=== PATIENT | male | born 1945 | race Caucasian/White ===

== ENCOUNTER 2016-07-16 07:10 | Day surgery (SDC) | payer MEDICARE ==
[2016-07-14 09:15] VITALS: BMI 28.8
[~2016-07-16 07:10] MED LIST: LACTATED RINGERS 1,000 ML IV SCH; LIDOCAINE 1% 20 ML VIAL (10MG/ML) FOR IV START INTRADERMA PRN
[2016-07-16 07:28] VITALS: RESP 16
[2016-07-16 07:49] VITALS: TEMP 97.6
[2016-07-16 07:51] LABS: Glucose,Whole Blood 119 mg/dL (75-99)
[2016-07-16] MEDS ORDERED: PROPOFOL 10 MG/ML 20 ML VIAL IV ONE (08:24)
[2016-07-16 09:11] VITALS: BP 107/72; PULSE 70
--- NOTE | 2016-07-16 14:42 | P.PCN ---
Date of Procedure: 07/16/16 Procedure(s) Performed: Procedure: Esophagogastroduodenoscopy and biopsy. Preoperative diagnosis: Dysphagia. Postoperative diagnosis: 1. Normal esophagus without any evidence of Zenker's diverticulum, hiatal hernia, esophagitis or complicated reflux disease. 2. Mild antral gastritis and minimal duodenitis. Preparation and sedation: Was provided by anesthesia. Brief clinical history: The patient is a 71-year-old male with history of non- Hodgkin's lymphoma who was initially referred last year for diarrhea which he had since 2012. He had a normal colonoscopy in 2013, and he responded to a course of Xifaxan. The patient was having issues with cough and dysphagia for which he was seen last month. He reported cough and throat closing up especially over the prior 3 weeks of his visit. I scheduled this evaluation to assess for esophagitis or complicated reflux disease or other pathology. Procedure: With the patient on his left lateral decubitus position and after informed consent and adequate sedation, I passed the Olympus GIF-140 60 video upper endoscope through the cricopharyngeus down the esophagus. Particular to attention was made for possible Zenker's diverticulum and I was not able to find any evidence of that. The esophagus did not have any erosions, ulcers, strictures or Bates's esophagus. There was no hiatal hernia then the endoscope was passed into the stomach which was insufflated with air and inspected in detail including the retroflex view in the cardia. There was minimal mottling and erythema in the antrum but no ulcers or erosions. Pyloric channel, duodenal bulb, post bulbar area and descending duodenum appeared within normal limits. Because of his symptoms, I obtained multiple biopsies from the duodenum, antrum and esophagus then the endoscope was withdrawn. The patient tolerated the procedure well. Plan: The patient was reassured. Will await biopsy results. Consideration can be given for further evaluation of his swallowing using motility and barium studies, depending on his course and especially if there is nutritional compromise. He will follow up with you as planned and I'll keep you updated on his progress.
== END 2016-07-16 09:48 | disposition home or self-care (01) ==
LOC: ORWHC2ENDO 07:10
DX: K29.50 Unspecified chronic gastritis without bleeding (principal); K20.9 Esophagitis, unspecified; E11.9 Type 2 diabetes mellitus without complications; G47.33 Obstructive sleep apnea (adult) (pediatric); I11.0 Hypertensive heart disease with heart failure; I50.9 Heart failure, unspecified; I25.10 Atherosclerotic heart disease of native coronary artery without angina pectoris; Z95.5 Presence of coronary angioplasty implant and graft; E78.5 Hyperlipidemia, unspecified; I25.2 Old myocardial infarction; Z79.84 Long term (current) use of oral hypoglycemic drugs; Z79.02 Long term (current) use of antithrombotics/antiplatelets; Z79.899 Other long term (current) drug therapy
CPT/HCPCS: 88305; 88342; 43239; J2704

== ENCOUNTER 2016-08-18 10:43 | Day surgery (SDC) | payer MEDICARE ==
[2016-08-14 11:27] VITALS: BMI 28.8
[~2016-08-18 10:43] MED LIST changes: +ALPRAZolam 0.25 MG TAB PO PRN; +ALPRAZolam 0.5 MG TAB PO PRN; +ASPIRIN 325 MG TAB PO STA; +ATORVASTATIN 80 MG TAB PO STA; -LACTATED RINGERS 1,000 ML IV SCH; -LIDOCAINE 1% 20 ML VIAL (10MG/ML) FOR IV START INTRADERMA PRN; +NITROGLYCERIN SL TABS 0.4 MG TAB SUBLINGUAL PRN; +SODIUM CHLORIDE 0.9% 1,000 ML in EMPTY BAG 1 BAG IV ONE
[2016-08-18] MEDS ORDERED: ONDANSETRON 4 MG/2 ML VIAL IVP ONE (11:02)
[2016-08-18 11:14] VITALS: PULSE 86; TEMP 98
[2016-08-18 11:31] LABS: Basophils % (A) 0 %; CH 29.3; CHCM 33.4; Eosinophils # (A) 0.2 k/uL (0-0.7); Eosinophils % (A) 4 %; HCT 37.1 % (39.0-53.0); HDW 2.94; HGB 12.6 gm/dL (13.0-17.5); Luc # (Auto) 0.21; Luc % (Auto) 4; Lymphocytes # (A) 1.4 k/uL (1.0-4.8); Lymphocytes % (A) 25 %; MCH 29.9 pg (25.0-35.0); MCV 87.8 fL (80.0-100.0); Monocytes # (A) 0.4 k/uL (0-1.0); Monocytes % (A) 8 %; Neutrophils # (A) 3.4 k/uL (1.3-7.7); Neutrophils % (A) 59 %; RBC 4.23 m/uL (4.30-5.90); RDW 15.3 % (11.5-15.5); WBC 5.7 k/uL (3.8-10.6); WBC (Perox) 5.88
[2016-08-18 11:37] LABS: Glucose,Whole Blood 135 mg/dL (75-99)
[2016-08-18 11:44] LABS: Anion Gap 5 mmol/L; Blood Urea Nitrogen 17 mg/dL (9-20); Carbon Dioxide 25 mmol/L (22-30); Chloride 108 mmol/L (98-107); Glucose 131 mg/dL (74-99); Non-African American GFR(MDRD) >60 (>60 ml/min/1.73 sqM); Potassium 4.4 mmol/L (3.5-5.1); Sodium 138 mmol/L (137-145)
[2016-08-18] MEDS ORDERED: LIDOCAINE 2% INJ 20 MG/ML (20 ML MDV) ONE (12:02)
[2016-08-18] MEDS ORDERED: fentaNYL (PF) 50 MCG/ML 2 ML AMP ONE (12:12)
[2016-08-18] MEDS ORDERED: MIDAZOLAM 2 MG/2 ML VIAL ONE (12:12)
[2016-08-18] MEDS ORDERED: fentaNYL (PF) 50 MCG/ML 2 ML AMP IV ONE (12:40)
[2016-08-18] MEDS ORDERED: MIDAZOLAM 2 MG/2 ML VIAL IV ONE (12:40)
[2016-08-18] MEDS ORDERED: LIDOCAINE 2% INJ 20 MG/ML SQ ONE (12:46)
[2016-08-18] MEDS ORDERED: IOHEXOL 350 MG/ML 125ML BOTTLE INJ ONE (13:20)
[2016-08-18 14:09] LABS: Glucose,Whole Blood 101 mg/dL (75-99)
[2016-08-18] MEDS ORDERED: RX INFO: IV CONTRAST WAS GIVEN 1 EACH MISC MISCELLANE PRN (15:15)
[2016-08-18 16:27] VITALS: RESP 18
[2016-08-18 18:26] VITALS: BP 145/74
--- NOTE | 2016-08-19 08:48 | CC ---
DATE OF SERVICE: A 71-year-old gentleman who is status post complex angioplasty with multiple stents in the LAD as well as atherectomy of the circumflex coronary artery. The patient has been having recently exertional chest pain suggestive of angina of new onset. The patient was recommended to have a cardiac catheterization to rule out any significant restenosis. PROCEDURE: The right groin was prepped and draped in the usual manner and the skin was infiltrated with 2% Xylocaine. The right femoral artery was entered using Seldinger technique. A #6 Samoan sheath was placed in. Selective coronary angiography was then performed in multiple projections. Multiple attempts were made to engage the right coronary artery selective, it was unsuccessful. Right coronary artery is small and dominant and chronically occluded. SELECTIVE CORONARY ANGIOGRAPHY: Left main coronary artery is normal and patent. LAD is a good caliber blood vessel and proximally there is about 50% stenosis, mid LAD has in-stent tight stenosis of about 80% to 90%. The patient's LAD is severely calcified. Circumflex coronary artery is patent at the site of the prior stent placement. Right coronary artery is known to be chronically occluded. RECOMMENDATIONS: Films were reviewed with Dr. Swanson and we will schedule him for a re-stent to the mid LAD as well as possible proximal LAD.
== END 2016-08-18 18:10 | disposition home or self-care (01) ==
LOC: CATHCVL 10:43
PROVIDERS: ATTEND Internal Medicine Cardiovascular Disease
DX: I25.119 Atherosclerotic heart disease of native coronary artery with unspecified angina pectoris (principal); T82.855A Stenosis of coronary artery stent, initial encounter; E78.2 Mixed hyperlipidemia; I25.2 Old myocardial infarction; E11.9 Type 2 diabetes mellitus without complications; Z82.49 Family history of ischemic heart disease and other diseases of the circulatory system; Z79.84 Long term (current) use of oral hypoglycemic drugs; Z79.02 Long term (current) use of antithrombotics/antiplatelets; Z79.82 Long term (current) use of aspirin; Z79.899 Other long term (current) drug therapy
CPT/HCPCS: 93454; 80048; 85025; C1760; C1894; C1769; J2001; J2250; J2405; J3010; Q9967

== ENCOUNTER 2016-08-21 07:52 | Day surgery (SDC) | payer MEDICARE ==
[2016-08-19 17:24] VITALS: BMI 28.8
[~2016-08-21 07:52] MED LIST changes: -ALPRAZolam 0.5 MG TAB PO PRN; +ASPIRIN 325 MG TAB PO ONE; -ASPIRIN 325 MG TAB PO STA; -ATORVASTATIN 80 MG TAB PO STA
[2016-08-21 08:16] VITALS: RESP 16; TEMP 97.7
[2016-08-21 08:27] LABS: Glucose,Whole Blood 137 mg/dL (75-99)
[2016-08-21 08:46] LABS: Mean Platelet Volume 7.2
[2016-08-21] MEDS ORDERED: SODIUM CHLORIDE 0.9% 1,000 ML IV ONE (10:06)
[2016-08-21] MEDS ORDERED: FUROSEMIDE 10 MG/ML 4 ML VIAL IV ONE (10:20)
[2016-08-21] MEDS ORDERED: LIDOCAINE 2% INJ 20 MG/ML SQ ONE (10:22)
[2016-08-21] MEDS ORDERED: MIDAZOLAM 2 MG/2 ML VIAL IVP ONE (10:22)
[2016-08-21] MEDS ORDERED: ENALAPRILAT 1.25 MG/ML 1 ML VIAL IVP ONE (10:27)
[2016-08-21] MEDS ORDERED: VERAPAMIL SYRINGE (5 MG/10 ML) INTRAARTER ONE (10:27)
[2016-08-21] MEDS ORDERED: hydrALAZINE HCL 20 MG/ML 1 ML VIAL IVP ONE (10:28)
[2016-08-21] MEDS ORDERED: BIVALIRUDIN BOLUS 250 MG/50 ML IV ONE (10:42)
[2016-08-21] MEDS ORDERED: BIVALIRUDIN 250 MG in SODIUM CHLORIDE 0.9% 50 ML IV ONE (10:42)
[2016-08-21] MEDS ORDERED: IOHEXOL 350 MG/ML 125ML BOTTLE INJ ONE (11:12)
[2016-08-21] MEDS ORDERED: RX INFO: IV CONTRAST WAS GIVEN 1 EACH MISC MISCELLANE PRN (11:26)
[2016-08-21] MEDS ORDERED: SODIUM CHLORIDE 0.9% 1,000 ML IV SCH (11:30)
[2016-08-21 12:52] LABS: Appearance,Urine Clear (Clear); Bilirubin,Urine Negative (Negative); Glucose,Urine (UA) Negative (Negative); Ketones,Urine Negative (Negative); Leukocyte Esterase,Urine Negative (Negative); Nitrite,Urine Negative (Negative); Protein,Urine Negative (Negative); Specific Gravity,Urine 1.008 (1.001-1.035); UA Billing (MACRO vs. MICRO) CHEM; Urobilinogen,Urine <2.0 mg/dL (<2.0)
--- NOTE | 2016-08-21 15:24 | XR ---
EXAMINATION TYPE: XR chest 2V DATE OF EXAM: 08/21/2016 2:20 PM COMPARISON: Chest x-ray November 28, 2015 HISTORY: Preop cardiac surgery. TECHNIQUE: Frontal and lateral views of the chest are obtained. FINDINGS: There is no focal air space opacity, pleural effusion, or pneumothorax seen. The cardiac silhouette size is within normal limits. The osseous structures are intact. IMPRESSION: No acute process. No significant change from prior.
--- NOTE | 2016-08-21 15:45 | US ---
EXAMINATION TYPE: US carotid duplex BILAT DATE OF EXAM: 08/21/2016 2:36 PM COMPARISON: NONE CLINICAL HISTORY: PreOp Cardiac Surgery. EXAM MEASUREMENTS: RIGHT: Peak Systolic Velocity (PSV) cm/sec ----- Right CCA: 72.6 ----- Right ICA: 82.7 ----- Right ECA: 100.0 ICA/CCA ratio: 1.2 RIGHT: End Diastole cm/sec ----- Right CCA: 12.9 ----- Right ICA: 30.4 ----- Right ECA: 0.0 LEFT: Peak Systolic Velocity (PSV) cm/sec ----- Left CCA: 86.4 ----- Left ICA: 128.1 ----- Left ECA: 107.9 ICA/CCA ratio: 1.5 LEFT: End Diastole cm/sec ----- Left CCA: 20.2 ----- Left ICA: 27.9 ----- Left ECA: 0.0 VERTEBRALS (direction of flow): Right Vertebral: Antegrade Left Vertebral: Antegrade No significant velocity elevations Grayscale images show moderate to severe eccentric shadowing plaque at right carotid bulb. Similar se isidro plaque is noted at left carotid bulb. Increased peak systolic velocity left internal carotid art evan is seen. End-diastolic velocity remains within normal limits. No increased velocity in right inte rnal carotid artery is present. IMPRESSION: Severe atherosclerotic change bilaterally without hemodynamically significant stenosis clearly seen in either internal carotid artery.
[2016-08-21 16:28] LABS: Basophils # (A) 0.1 k/uL (0-0.2); Basophils % (A) 1 %; CH 28.8; CHCM 31.8; Eosinophils # (A) 0.2 k/uL (0-0.7); Eosinophils % (A) 3 %; HCT 38.6 % (39.0-53.0); HDW 2.63; HGB 12.1 gm/dL (13.0-17.5); Luc # (Auto) 0.17; Luc % (Auto) 3; Lymphocytes # (A) 1.4 k/uL (1.0-4.8); Lymphocytes % (A) 23 %; MCH 28.5 pg (25.0-35.0); MCHC 31.4 g/dL (31.0-37.0); MCV 90.8 fL (80.0-100.0); Mean Platelet Volume 7.2; Monocytes # (A) 0.4 k/uL (0-1.0); Monocytes % (A) 6 %; Neutrophils # (A) 3.9 k/uL (1.3-7.7); Neutrophils % (A) 65 %; RBC 4.25 m/uL (4.30-5.90); RDW 15.3 % (11.5-15.5); WBC (Perox) 6.32
[2016-08-21 16:40] LABS: Partial Thromboplastin Time 31.8 sec (22.0-30.0); Prothrombin Time 10.6 sec (9.0-12.0)
[2016-08-21 16:54] LABS: ALT 33 U/L (21-72); AST 40 U/L (17-59); Alkaline Phosphatase 85 U/L (38-126); Anion Gap 7 mmol/L; Blood Urea Nitrogen 15 mg/dL (9-20); Calcium 8.9 mg/dL (8.4-10.2); Carbon Dioxide 26 mmol/L (22-30); Chloride 106 mmol/L (98-107); Cholesterol 191 mg/dL (<200); Glucose 165 mg/dL (74-99); HDL Cholesterol 46 mg/dL (40-60); Non-African American GFR(MDRD) >60 (>60 ml/min/1.73 sqM); Potassium 3.8 mmol/L (3.5-5.1); Sodium 139 mmol/L (137-145); Total Bilirubin 0.6 mg/dL (0.2-1.3); Total Protein 5.3 g/dL (6.3-8.2); Triglycerides 188 mg/dL (<150)
[2016-08-21 16:55] VITALS: BP 147/78; PULSE 62
[2016-08-21 17:23] LABS: Hepatitis B Surface Ag Index 0.05
[2016-08-21 17:29] LABS: Hepatitis B Core IgM Index 0.03
[2016-08-21 17:40] LABS: Hemoglobin A1C 6.8 % (4.2-6.1)
[2016-08-21 17:41] LABS: Hepatitis C Virus IgG Index 0.01
[2016-08-21 17:42] LABS: Hepatitis C Virus IgG Ab Negative (Negative)
--- NOTE | 2016-08-21 19:27 | CC ---
DATE OF SERVICE: 08/21/2016 PERFORMING PHYSICIAN: Jamie Swanson M.D., assisted sales representative. PROCEDURES PERFORMED: 1. Selective left coronary angiogram. 2. Fractional flow reserve (FFR) of left circumflex coronary artery. INDICATION: This is a pleasant 71-year-old gentleman who sees Dr. Haydee Tijerina as an outpatient with a known history of coronary artery disease where he underwent in December of 2015 stenting of the left circumflex coronary artery associated with atherectomy of the left circumflex, and a few weeks before that he underwent stenting of the proximal and mid LAD. He was experiencing chest discomfort consistent with angina. He underwent a heart catheterization by Dr. Haydee Tijerina a few days ago, and that showed severe in-stent restenosis of the LAD. The initial plan was to proceed with intervention of the LAD. Reviewing the angiogram again showed questionable and concerning lesion involving the ostial left circumflex. The patient was brought in today to undergo an FFR of the left circumflex and to take more views of the left circumflex. APPROACH: Right radial artery. COMPLICATIONS: None. LEVEL OF SEDATION: Moderate, with sedation length of approximately an hour. PROCEDURE DESCRIPTION: After obtaining informed consent, the patient was brought to the cardiac mushroom laborer. The right radial artery was cannulated using micropuncture technique. The micropuncture wire passed easily. Then I placed a 6 Spanish sheath in the right radial artery. Subsequently I gave the patient 2 mg of Verapamil IA without any anticoagulation. After that, I engaged the left main using a JL3.5 guiding catheter. I did multiple views of the left coronary system to open the ostial left circumflex coronary artery. After that we did an FFR of the left circumflex. Please see separate paragraph for that. SELECTIVE CORONARY ANGIOGRAM: 1. The left main is calcified with mild disease distally. It bifurcates into the left circumflex and left anterior descending artery. 2. The left circumflex. The ostial left circumflex is calcified with ostial lesion that appeared to be in the range of 60% to 70%. The left circumflex after that is stented, and the stent is patent. The mid left circumflex is angiographically normal. The left circumflex distally is angiographically normal. The left circumflex is a dominant vessel. 3. Left anterior descending artery. The proximal LAD is stented with in-stent restenosis that seems to be in the range of 50%. The mid LAD is stented as well, and there is another lesion by the bifurcation of the diagonal that seems to be in the range of 70%. The diagonal is a medium-caliber diagonal with severe ostial lesion as well. The LAD distal to that appeared to have mild to moderate diffuse disease. 4. The right coronary artery. Right coronary artery angiogram was not performed. FFR OF THE LEFT CIRCUMFLEX: Anticoagulation was initiated using Angiomax. Subsequently and after we did zeroing of the Doppler wire and equalizing between the Doppler wire and the guiding catheter, we did an FFR per IV adenosine infusion. The guiding catheter was a JL3.5 guiding catheter. The FFR came in to be 0.77, which is ischemic. CONCLUSION: 1. Severe two-vessel coronary artery disease. 2. Severe in-stent restenosis involving the proximal and mid left anterior descending artery. 3. Severe disease involving the ostial/proximal left circumflex, confirmed by FFR. POST-PROCEDURE MANAGEMENT: In view of that, we recommended proceeding with coronary artery bypass grafting. I discussed that with the patient, and I am going to discuss that with his family as well.
--- NOTE | 2016-08-22 09:54 | ECHOF ---
Referral Reason:preop cardiac surgery MEASUREMENTS -------- HEIGHT: 180.3 cm WEIGHT: 92.1 kg BP: IVSd: 1.4 cm (0.6 - 1.1) LVIDd: 3.4 cm (3.9 - 5.3) LVPWd: 1.3 cm (0.6 - 1.1) IVSs: 1.8 cm LVIDs: 2.2 cm LVPWs: 2.2 cm Ao Diam: 2.7 cm (2.0 - 3.7) AV Cusp: 1.7 cm (1.5 - 2.6) LA Diam: 3.3 cm (2.7 - 3.8) MV EXCURSION: 16.312 mm (> 18.000) MV EF SLOPE: 42 mm/s (70 - 150) EPSS: 0.5 cm MV E Say: 0.53 m/s MV DecT: 354 ms MV A Say: 0.61 m/s MV E/A Ratio: 0.88 RAP: 5.00 mmHg RVSP: 19.40 mmHg FINDINGS -------- Sinus rhythm. This was a technically adequate study. There is mild concentric left ventricular hypertrophy. Overall left ventricular systolic function is normal with, an EF between 55 - 60 %. The diastolic filling pattern is normal for the age of the patient 1.33. The right ventricle is normal in size and function. The left atrium is normal in size. The right atrium is normal in size. Aortic valve is trileaflet and is mildly thickened. The mitral valve leaflets are mildly thickened. There is trace mitral regurgitation. Trace tricuspid regurgitation present. The right ventricular systolic pressure, as measured by Doppler, is 19.40mmHg. Pulmonic valve appears structurally normal. The aortic root size is normal. There is a trivial pericardial effusion present. CONCLUSIONS -------- 1. Sinus rhythm. 2. The mitral valve leaflets are mildly thickened. 3. There is trace mitral regurgitation. 4. Trace tricuspid regurgitation present. 5. The right ventricular systolic pressure, as measured by Doppler, is 19.40mmHg. 6. Pulmonic valve appears structurally normal. 7. The aortic root size is normal. 8. There is a trivial pericardial effusion present. 9. This was a technically adequate study. 10. There is mild concentric left ventricular hypertrophy. 11. Overall left ventricular systolic function is normal with, an EF between 55 - 60 %. 12. The diastolic filling pattern is normal for the age of the patient 1.33 13. The right ventricle is normal in size and function. 14. The left atrium is normal in size. 15. The right atrium is normal in size. 16. Aortic valve is trileaflet and is mildly thickened. EMT/PARAMEDIC: Irene Flowers RDCS
--- NOTE | 2016-08-26 11:49 | P.VSCSTY ---
Greater Saphenous Vein Mapping This is bilateral lower extremity greater saphenous vein mapping. Date of service 08/21/2016 Vein quality and ultrasound appearance normal. Vein size groin right 6.0 x 4.6 groin left 9.2 x 9.0 High thigh right to 5.5 x 4.4 high thigh left 5.2 x 5.3 Mid thigh right 5.6 x 4.1 mid thigh left 4.8 x 4.0 Above-knee right 5.4 x 4.3 above- knee left 6.1 x 4.6 Below knee right 4.5 x 3.4 below-knee left 5.8 x 3.9 Mid calf right 4.1 x 3.5 mid calf left 4.4 x 3.4 Ankle right 3.8 x 2.7 ankle left 4.1 x 3.0 Impression usable bilateral greater saphenous vein.
--- NOTE | 2016-08-26 11:50 | P.ARTDOP ---
Arterial Doppler LOWER EXTREMITY ARTERIAL DOPPLER: DATE OF SERVICE: 08/21/2016 Reason for study: Pre-CABG. Doppler waveforms: Multiphasic bilaterally throughout. Pulse volume recording: []. Pressure gradients: None. Ankle-brachial indices: Cannot be occluded. Toe pressures: [] on the right, [] on the left Impression: Limited but apparently normal bilateral lower extremity arterial Doppler. Falsely elevated ankle pressures may mean some calcific wall disease. Does not appear to affect flow..
== END 2016-08-21 16:55 | disposition home or self-care (01) ==
LOC: CATHCVL 07:52
PROVIDERS: ATTEND Internal Medicine Interventional Cardiology
DX: I25.110 Atherosclerotic heart disease of native coronary artery with unstable angina pectoris (principal); I25.84 Coronary atherosclerosis due to calcified coronary lesion; I10 Essential (primary) hypertension; T82.855A Stenosis of coronary artery stent, initial encounter; I08.1 Rheumatic disorders of both mitral and tricuspid valves; I31.3 Pericardial effusion (noninflammatory); I51.7 Cardiomegaly; E78.2 Mixed hyperlipidemia; I25.2 Old myocardial infarction; Z82.49 Family history of ischemic heart disease and other diseases of the circulatory system; E11.9 Type 2 diabetes mellitus without complications; Z79.84 Long term (current) use of oral hypoglycemic drugs; Z79.02 Long term (current) use of antithrombotics/antiplatelets; Z79.82 Long term (current) use of aspirin; Z79.51 Long term (current) use of inhaled steroids; Z79.899 Other long term (current) drug therapy
CPT/HCPCS: 94150; 93306; 93571; 93454; 86900; 86901; 83880; 80061; 80053; 80074; 84443; 83036; 83735; 85025; 85049; 85610; 85730; 86850; 81003; 87070; 87086; 71020; 93970; 93922; 93880; 99152; 99153 ×3; C1887; C1753; C1894; J2001; J2250; J0360; J1940; J0583; Q9967

== ENCOUNTER → 2016-08-27 | Outpatient (CLI) | payer MEDICARE ==
[2016-08-27 12:28] LABS: Blood Urea Nitrogen 14 mg/dL (9-20); Non-African American GFR(MDRD) >60 (>60 ml/min/1.73 sqM)
--- NOTE | 2016-08-27 14:12 | CT ---
EXAMINATION TYPE: CT ChestAbdPelvis w con DATE OF EXAM: 08/27/2016 1:49 PM COMPARISON: Prior CT chest abdomen pelvis 22 July 2015 HISTORY: lymphoma CT DLP: 2101 mGycm Automated exposure control for dose reduction was used. CONTRAST: CT scan of the chest, abdomen and pelvis is performed with Oral Contrast and with IV Contrast, patien t injected with 100 mL of Omnipaque 300. FINDINGS: LUNGS: The lungs are stable, there is no concerning parenchymal mass or nodule identified, small subp leural nodularity at the apices is unchanged. There is no pleural effusion or pneumothorax seen. Co ronary artery calcifications are present The tracheobronchial tree is patent. MEDIASTINUM: There are no greater than 1 cm hilar or mediastinal lymph nodes. No pericardial effusi on is seen. AORTA: No significant abnormality is seen. OTHER: No additional significant abnormality is seen. LIVER/GB: Similar findings. Dilated biliary ducts are present. Gallbladder is normal. There is a sten t within the common bile duct extending to the duodenum, abnormal soft tissue is present within the p silvia and encasement of the superior mesenteric artery, proximal portal vein, varices are present at t his level PANCREAS: Pancreatic head is enlarged and poorly defined, there is associated mass suspected, the por wendy vein is likely obstructed at this level as on prior SPLEEN: Spleen shows associated calcifications as on previous. ADRENALS: No significant abnormality is seen. KIDNEYS: Stable compared to prior, cortical cyst present bilaterally REPRODUCTIVE ORGANS: No gross abnormality seen. BOWEL: There are areas of wall thickening involving the ileum distally, cecum similar to prior, dist ended mesenteric veins may be related to portal vein obstruction FREE AIR: No Free Air visible. ASCITES: Minimal fluid is present within the mesentery and pelvis RETROPERITONEAL ADENOPATHY: No retroperitoneal adenopathy is seen. LYMPH NODES: Mesenteric node shows low attenuation and is enlarged but improved compared to previous measuring 1.6 cm in short axis whereas on prior measured 2.1 cm appreciated. URINARY BLADDER: No significant abnormality is seen. PELVIC ADENOPATHY: None visualized. OSSEOUS STRUCTURES: Scoliosis, facet arthropathy, degenerative disc changes are again noted. IMPRESSION: Similar findings, mesenteric node may be slightly improved. There is a mass of the head o f the pancreas similar to prior exam.
== END | disposition home or self-care (01) ==
LOC: RADCTMAIN 11:41
PROVIDERS: ATTEND Internal Medicine Hematology & Oncology
DX: C85.90 Non-Hodgkin lymphoma, unspecified, unspecified site (principal); K86.89 Other specified diseases of pancreas
CPT/HCPCS: 82565; 84520; 71260; 74177; 36415; Q9967

== ENCOUNTER → 2016-08-29 | Outpatient (CLI) | payer MEDICARE | LOC: LABWHC1 14:29 | PROVIDERS: ATTEND Surgery | DX: Z01.812 Encounter for preprocedural laboratory examination (principal) | CPT/HCPCS: 86850; 86900; 86901; 86920 ==

== ENCOUNTER 2016-09-03 05:42 | Inpatient (IN) | payer MEDICARE ==
[2016-08-28 14:02] VITALS: BMI 28.5
[~2016-09-03 05:42] MED LIST changes: +ALBUMIN HUMAN 25% 50 ML IV ONE; +ALBUMIN HUMAN 5% 500 ML IVPB ONE; -ALPRAZolam 0.25 MG TAB PO PRN; +AMINOCAPROIC ACID 250 MG/ML 20 ML VIAL IV ONE; +AMINOCAPROIC ACID 5,000 MG in DEXTROSE 5% IN WATER 50 ML IV ONE; +ATORVASTATIN 10 MG TAB PO ONE; +CALCIUM CHLORIDE 100 MG/ML 10 ML SYRINGE IV ONE; +CHLORHEXIDINE GLUCONATE 15 ML CUP MUCOUS MEM ONE; +CLEVIDIPINE BUTYRATE 25 MG in EMPTY BAG 1 BAG IV ONE; +DEXTROSE 5% IN WATER 1,000 ML with POTASSIUM CHLORIDE 110 MEQ, MAGNESIUM SULFATE 16 MEQ... IV ONE; +DEXTROSE 5% IN WATER 1,000 ML with POTASSIUM CHLORIDE 25 MEQ, SODIUM CHLORIDE 4MEQ/ML V... IV ONE; +HEPARIN SODIUM 1,000 UNIT/ML VIAL IV ONE; +HEPARIN SODIUM,PORCINE 5,000 UNIT in SODIUM CHLORIDE 0.9% 500 ML IV ONE; +INSULIN REGULAR 100 UNIT in SODIUM CHLORIDE 0.9% 100 ML IV ONE; +LACTATED RINGERS 1,000 ML IV ONE; +MAGNESIUM SULFATE MG 500 MG/ML VIAL IV ONE; +MANNITOL 25% 12.5 GM/50 ML VIAL IV ONE; +METOPROLOL TARTRATE 12.5 MG TAB PO ONE; -NITROGLYCERIN SL TABS 0.4 MG TAB SUBLINGUAL PRN; +NITROGLYCERIN-D5W PMX 25 MG/250 ML BTL IV ONE; +NITROGLYCERIN-D5W PMX 50 MG in DEXTROSE/WATER 1 250ML.BAG IV ONE; +NOREPINEPHRIN 4 MG-0.9% NS PMX 4 MG/250 ML ML IV ONE; +PAPAVERINE 360 MG in SODIUM CHLORIDE 0.9% 90 ML IV ONE; +PHENYLEPHRINE 40 MG in SODIUM CHLORIDE 0.9% 250 ML IV ONE; +PHENYLEPHRINE-0.9% NACL SYG 1 MG/10 ML SYRINGE IV ONE; +PROPOFOL 50 ML IV ONE; +PROTAMINE SULFATE 10 MG/ML 25 ML VIAL IV ONE; +PROTAMINE SULFATE 250 MG in EMPTY BAG 1 BAG IV ONE; +SODIUM BICARB 8.4% 50 ML SYR (1 MEQ/ML) IV ONE; +SODIUM CHLORIDE 0.9% 1,000 ML IV ONE; -SODIUM CHLORIDE 0.9% 1,000 ML in EMPTY BAG 1 BAG IV ONE; +ceFAZolin 1,000 MG in SODIUM CHLORIDE 0.9% IRRIGATIO 1,000 ML IRRIGATION ONE; +ceFAZolin 2,000 MG in SODIUM CHLORIDE 0.9% 30 ML IVPB ONE
[2016-09-03 06:14] LABS: Glucose,Whole Blood 134 mg/dL (75-99)
[2016-09-03] MEDS ORDERED: PROTAMINE SULFATE 10 MG/ML 25 ML VIAL IV ONE (08:22)
[2016-09-03] MEDS ORDERED: MIDAZOLAM 2 MG/2 ML VIAL ONE (08:22)
[2016-09-03] MEDS ORDERED: MAGNESIUM SULFATE 4 MEQ/ML 2 ML VIAL ONE (08:22)
[2016-09-03] MEDS ORDERED: PROTAMINE SULFATE 10 MG/ML 5 ML VIAL IV ONE (08:22)
[2016-09-03] MEDS ORDERED: HEPARIN SODIUM,PORCINE 5,000 UNIT/ML 1 ML VIAL ONE (08:22)
[2016-09-03] MEDS ORDERED: LIDOCAINE 2% SYG (PF) 100 MG/5 ML ONE (08:22)
[2016-09-03] MEDS ORDERED: SODIUM CHLORIDE 0.9% IRRIG 1,000 ML BTL IRRIGATION ONE (08:22)
[2016-09-03] MEDS ORDERED: VECURONIUM 10 MG VIAL IV ONE (08:22)
[2016-09-03] MEDS ORDERED: HEPARIN SODIUM 1,000 UNIT/ML VIAL ONE (08:22)
[2016-09-03] MEDS ORDERED: fentaNYL (PF) 50 MCG/ML 2 ML AMP ONE (08:22)
[2016-09-03] MEDS ORDERED: fentaNYL (PF) 50 MCG/ML 50 ML VIAL ONE (08:22)
[2016-09-03] MEDS ORDERED: ELECTROLYTE-R (PH 7.4) 1,000 ML IV.SOLN IV ONE (08:22)
[2016-09-03] MEDS ORDERED: ePHEDrine 50 MG/ML 1 ML AMP ONE (08:22)
[2016-09-03] MEDS ORDERED: HEPARIN SODIUM,PORCINE 10,000 UNIT/ML 1 ML VIAL ONE (08:22)
[2016-09-03] MEDS ORDERED: PROPOFOL 10 MG/ML 20 ML VIAL IV ONE (08:22)
[2016-09-03 09:20] LABS: Glucose,Whole Blood 134 mg/dL (75-99)
[2016-09-03 10:16] LABS: Glucose,Whole Blood 134 mg/dL (75-99)
[2016-09-03 11:23] LABS: Glucose,Whole Blood 204 mg/dL (75-99)
[2016-09-03 11:56] LABS: Glucose,Whole Blood 207 mg/dL (75-99)
[2016-09-03 12:39] LABS: Glucose,Whole Blood 200 mg/dL (75-99)
[2016-09-03 13:29] LABS: Glucose,Whole Blood 231 mg/dL (75-99)
[2016-09-03] MEDS ORDERED: Magnesium Replacement Protocol 1 EACH MISC MISCELLANE PRN (14:44)
[2016-09-03] MEDS ORDERED: CALCIUM GLUCONATE 2,000 MG in SODIUM CHLORIDE 0.9% 100 ML IVPB PRN (14:44)
[2016-09-03] MEDS ORDERED: Potassium Replacement Protocol 1 EACH MISC MISCELLANE PRN (14:44)
[2016-09-03] MEDS ORDERED: METOCLOPRAMIDE 5 MG/ML 2 ML VIAL IVP PRN (14:44)
[2016-09-03] MEDS ORDERED: Phosphorus Replacement Protoco 1 EACH MISC MISCELLANE PRN (14:44)
[2016-09-03] MEDS ORDERED: MORPHINE SULFATE 2 MG/ML SYRINGE IVP PRN (14:44)
[2016-09-03] MEDS ORDERED: ONDANSETRON 4 MG/2 ML VIAL IVP PRN (14:44)
[2016-09-03] MEDS ORDERED: ALBUMIN HUMAN 5% 250 ML in EMPTY BAG 1 BAG IVPB PRN (14:44)
[2016-09-03 14:57] LABS: Glucose,Whole Blood 181 mg/dL (75-99)
[2016-09-03] MEDS ORDERED: INSULIN REGULAR 100 UNIT in SODIUM CHLORIDE 0.9% 100 ML IV SCH (15:00)
[2016-09-03] MEDS: PROPOFOL 500 MG in EMPTY BAG 1 BAG IV SCH ×3 (15:17→21:40)
[2016-09-03] MEDS: NITROGLYCERIN-D5W PMX 50 MG in DEXTROSE/WATER 1 250ML.BAG IV SCH ×2 (15:40→18:32)
[2016-09-03] MEDS: LACTATED RINGERS 1,000 ML IV SCH (15:40)
[2016-09-03] MEDS: CLEVIDIPINE BUTYRATE 25 MG in EMPTY BAG 1 BAG IV SCH ×2 (15:40→16:35)
[2016-09-03] MEDS: ceFAZolin 2 GM in SODIUM CHLORIDE 0.9% 100 ML IVPB SCH (15:41)
[2016-09-03 15:45] LABS: Glucose,Whole Blood 164 mg/dL (75-99)
[2016-09-03 15:48] LABS: Basophils % (A) 0 %; CH 29.4; CHCM 33.3; Eosinophils # (A) 0.1 k/uL (0-0.7); Eosinophils % (A) 1 %; HCT 23.6 % (39.0-53.0); HDW 2.99; HGB 7.9 gm/dL (13.0-17.5); Luc # (Auto) 0.05; Luc % (Auto) 1; Lymphocytes # (A) 0.7 k/uL (1.0-4.8); Lymphocytes % (A) 14 %; MCH 29.8 pg (25.0-35.0); MCHC 33.5 g/dL (31.0-37.0); MCV 88.8 fL (80.0-100.0); Mean Platelet Volume 8.9; Monocytes # (A) 0.3 k/uL (0-1.0); Monocytes % (A) 6 %; Neutrophils # (A) 4.2 k/uL (1.3-7.7); Neutrophils % (A) 79 %; RBC 2.65 m/uL (4.30-5.90); RDW 15.7 % (11.5-15.5); WBC 5.3 k/uL (3.8-10.6); WBC (Perox) 5.45
[2016-09-03 15:56] LABS: Ionized Calcium 4.8 mg/dL (4.5-5.3)
[2016-09-03] MEDS ORDERED: DESMOPRESSIN INJ 28 MCG in SODIUM CHLORIDE 0.9% 50 ML IVPB STA (15:56)
[2016-09-03 15:59] LABS: ABG HCO3 23 mmol/L (21-25); ABG PCO2 45 mmHg (35-45); ABG PH 7.32 (7.35-7.45); ABG PO2 348 mmHg (83-108); ABG TCO2 24 mmol/L (19-24)
[2016-09-03 16:00] LABS: INR 1.3 (<1.1); Prothrombin Time 12.6 sec (9.0-12.0)
[2016-09-03 16:00] LABS: ABG Base Excess -2.4 mmol/L
[2016-09-03 16:01] LABS: Partial Thromboplastin Time 26.3 sec (22.0-30.0)
[2016-09-03 16:14] LABS: ALT 125 U/L (21-72); AST 381 U/L (17-59); Alkaline Phosphatase 81 U/L (38-126); Anion Gap 6 mmol/L; Blood Urea Nitrogen 15 mg/dL (9-20); Calcium 7.8 mg/dL (8.4-10.2); Carbon Dioxide 25 mmol/L (22-30); Chloride 111 mmol/L (98-107); Glucose 149 mg/dL (74-99); Magnesium 2.2 mg/dL (1.6-2.3); Non-African American GFR(MDRD) >60 (>60 ml/min/1.73 sqM); Potassium 3.5 mmol/L (3.5-5.1); Sodium 142 mmol/L (137-145); Total Bilirubin 1.8 mg/dL (0.2-1.3); Total Protein 4.1 g/dL (6.3-8.2)
--- NOTE | 2016-09-03 16:16 | XR ---
EXAMINATION TYPE: XR chest 1V portable DATE OF EXAM: 09/03/2016 4:08 PM HISTORY: Post Op CABG COMPARISON: Preoperative study 08/13/2016 TECHNIQUE: Single view of the chest is submitted. FINDINGS: Endotracheal tube, NG tube, SG catheter, mediastianal drains and left chest tube are appropriately pl aced. Post operative changes of CABG. No sizeable pneumothorax. Scattered Pleural-parencymal opacities may reflect atelectasis. The heart is not enlarged. IMPRESSION: 1. Post operative changes of CABG.
[2016-09-03 16:24] LABS: Glucose,Whole Blood 141 mg/dL (75-99)
[2016-09-03 17:06] LABS: Glucose,Whole Blood 133 mg/dL (75-99)
[2016-09-03] MEDS: ACETAMINOPHEN IV (For NPO) 1,000 MG in EMPTY BAG 1 BAG IVPB SCH ×2 (17:06→23:12)
[2016-09-03 17:53] LABS: Basophils % (A) 0 %; CHCM 32.1; Eosinophils % (A) 1 %; HCT 24.2 % (39.0-53.0); HDW 2.88; HGB 7.7 gm/dL (13.0-17.5); Hypochromasia Slight; Luc % (Auto) 2; Lymphocytes # (A) 1.1 k/uL (1.0-4.8); Lymphocytes % (A) 20 %; MCHC 31.9 g/dL (31.0-37.0); MCV 90.9 fL (80.0-100.0); Mean Platelet Volume 8.7; Monocytes # (A) 0.3 k/uL (0-1.0); Monocytes % (A) 6 %; Neutrophils % (A) 72 %; RBC 2.67 m/uL (4.30-5.90); RDW 15.8 % (11.5-15.5); WBC 5.6 k/uL (3.8-10.6); WBC (Perox) 5.41
[2016-09-03] MEDS ORDERED: POTASSIUM CHLORIDE 20 MEQ in WATER FOR INJECTION 1 100ML.BAG IVPB ONE (18:00)
[2016-09-03 18:11] LABS: INR 1.2 (<1.1); Partial Thromboplastin Time 22.6 sec (22.0-30.0); Prothrombin Time 11.7 sec (9.0-12.0)
[2016-09-03] MEDS ORDERED: EMPTY BAG 1 BAG ONE ×2 (18:19→21:39)
[2016-09-03 18:23] LABS: Glucose,Whole Blood 159 mg/dL (75-99)
[2016-09-03 19:09] LABS: Glucose,Whole Blood 155 mg/dL (75-99)
[2016-09-03] MEDS: MILRINONE-D5W PMX 20 MG in DEXTROSE/WATER 1 100ML.BAG IV SCH ×2 (19:14→22:17)
[2016-09-03] MEDS: IPRATROPIUM-ALBUTEROL 3 ML NEB INHALATION SCH ×3 (19:19→23:00)
[2016-09-03 20:24] LABS: Glucose,Whole Blood 183 mg/dL (75-99)
[2016-09-03 21:22] LABS: Glucose,Whole Blood 180 mg/dL (75-99)
[2016-09-03 21:44] LABS: Basophils % (A) 0 %; CH 29.2; CHCM 32.7; Eosinophils # (A) 0.1 k/uL (0-0.7); Eosinophils % (A) 1 %; HCT 23.3 % (39.0-53.0); HDW 3.25; HGB 7.8 gm/dL (13.0-17.5); Hypochromasia Slight; Luc # (Auto) 0.05; Luc % (Auto) 1; Lymphocytes # (A) 0.5 k/uL (1.0-4.8); Lymphocytes % (A) 7 %; MCH 29.9 pg (25.0-35.0); MCHC 33.3 g/dL (31.0-37.0); MCV 89.8 fL (80.0-100.0); Mean Platelet Volume 7.5; Monocytes # (A) 0.4 k/uL (0-1.0); Monocytes % (A) 6 %; Neutrophils # (A) 5.4 k/uL (1.3-7.7); Neutrophils % (A) 85 %; RBC 2.59 m/uL (4.30-5.90); RDW 15.5 % (11.5-15.5); WBC 6.4 k/uL (3.8-10.6); WBC (Perox) 6.19
[2016-09-03 21:54] LABS: Ionized Calcium 4.8 mg/dL (4.5-5.3)
[2016-09-03 22:04] LABS: Partial Thromboplastin Time 25.9 sec (22.0-30.0)
[2016-09-03 22:08] LABS: Anion Gap 6 mmol/L; Blood Urea Nitrogen 14 mg/dL (9-20); Calcium 7.7 mg/dL (8.4-10.2); Carbon Dioxide 24 mmol/L (22-30); Chloride 110 mmol/L (98-107); Glucose 159 mg/dL (74-99); Non-African American GFR(MDRD) >60 (>60 ml/min/1.73 sqM); Phosphorous 2.6 mg/dL (2.5-4.5); Potassium 4.4 mmol/L (3.5-5.1); Sodium 140 mmol/L (137-145)
[2016-09-03 22:14] LABS: Glucose,Whole Blood 169 mg/dL (75-99)
[2016-09-03] MEDS: MUPIROCIN 2% OINT 22 GM TUBE NASAL SCH (23:11)
[2016-09-03] MEDS: HEPARIN SODIUM,PORCINE 5,000 UNIT/ML 1 ML VIAL SQ SCH (23:11)
[2016-09-03 23:17] LABS: Glucose,Whole Blood 148 mg/dL (75-99)
[2016-09-04] MEDS: ceFAZolin 2 GM in SODIUM CHLORIDE 0.9% 100 ML IVPB SCH ×2 (00:32→08:58)
[2016-09-04 00:51] LABS: Glucose,Whole Blood 136 mg/dL (75-99)
[2016-09-04 02:05] LABS: Glucose,Whole Blood 130 mg/dL (75-99)
[2016-09-04 02:49] LABS: ABG Base Excess -2.4 mmol/L; ABG HCO3 22 mmol/L (21-25); ABG PCO2 41 mmHg (35-45); ABG PH 7.36 (7.35-7.45); ABG PO2 98 mmHg (83-108); ABG TCO2 24 mmol/L (19-24)
[2016-09-04 03:20] LABS: Glucose,Whole Blood 135 mg/dL (75-99)
[2016-09-04 05:01] LABS: Glucose,Whole Blood 143 mg/dL (75-99)
[2016-09-04 05:13] LABS: Ionized Calcium 4.8 mg/dL (4.5-5.3)
[2016-09-04 05:19] LABS: ALT 131 U/L (21-72); AST 230 U/L (17-59); Alkaline Phosphatase 112 U/L (38-126); Anion Gap 7 mmol/L; Blood Urea Nitrogen 14 mg/dL (9-20); Calcium 7.7 mg/dL (8.4-10.2); Carbon Dioxide 25 mmol/L (22-30); Chloride 112 mmol/L (98-107); Glucose 131 mg/dL (74-99); INR 1.2 (<1.1); Magnesium 1.9 mg/dL (1.6-2.3); Non-African American GFR(MDRD) >60 (>60 ml/min/1.73 sqM); Partial Thromboplastin Time 24.3 sec (22.0-30.0); Potassium 3.9 mmol/L (3.5-5.1); Prothrombin Time 11.7 sec (9.0-12.0); Sodium 144 mmol/L (137-145); Total Bilirubin 0.9 mg/dL (0.2-1.3); Total Protein 4.5 g/dL (6.3-8.2)
[2016-09-04 05:20] LABS: Basophils % (A) 0 %; CH 29.3; Eosinophils % (A) 0 %; HCT 22.7 % (39.0-53.0); HDW 3.08; HGB 7.5 gm/dL (13.0-17.5); Luc # (Auto) 0.09; Luc % (Auto) 1; Lymphocytes # (A) 0.8 k/uL (1.0-4.8); Lymphocytes % (A) 11 %; MCH 29.3 pg (25.0-35.0); MCHC 32.9 g/dL (31.0-37.0); MCV 89.1 fL (80.0-100.0); Mean Platelet Volume 8.9; Monocytes # (A) 0.3 k/uL (0-1.0); Monocytes % (A) 5 %; Neutrophils # (A) 5.7 k/uL (1.3-7.7); Neutrophils % (A) 82 %; RBC 2.55 m/uL (4.30-5.90); RDW 15.7 % (11.5-15.5); WBC 6.9 k/uL (3.8-10.6)
[2016-09-04] MEDS: ACETAMINOPHEN IV (For NPO) 1,000 MG in EMPTY BAG 1 BAG IVPB SCH ×3 (06:02→19:09)
[2016-09-04] MEDS: MAGNESIUM SULFATE-D5W PMX 1 GM in DEXTROSE/WATER 1 100ML.BAG IVPB SCH ×2 (06:03→07:13)
[2016-09-04] MEDS: POTASSIUM CHLORIDE 10 MEQ in WATER FOR INJECTION 1 100ML.BAG IVPB SCH ×2 (06:09→07:13)
[2016-09-04 07:12] LABS: Glucose,Whole Blood 155 mg/dL (75-99)
--- NOTE | 2016-09-04 07:33 | XR ---
EXAMINATION TYPE: XR chest 1V portable DATE OF EXAM: 09/04/2016 7:01 AM HISTORY: Post Op CABG COMPARISON: NONE TECHNIQUE: Single view of the chest is submitted. FINDINGS: Endotracheal tube, NG tube, SG catheter, mediastianal drains and left chest tube are appropriately pl aced. Post operative changes of CABG. There is a new right-sided pneumothorax estimated at 20%. Scattered Pleural-parencymal opacities may reflect atelectasis. The heart mildly enlarged. IMPRESSION: 1. New right-sided pneumothorax estimated at 20%. 2. Post operative changes of CABG. A Red message has been communicated to Irene Lane via the [employer] Critical Result system on 09/04/2016 7:30 AM, Message ID [id number].
[2016-09-04 08:00] LABS: Glucose,Whole Blood 183 mg/dL (75-99)
--- NOTE | 2016-09-04 08:47 | CONS ---
DATE OF CONSULTATION: REASON FOR CONSULTATION: Advice regarding diabetes and other medical issues requested by Cardiothoracic Surgery. HISTORY OF PRESENT ILLNESS: This is a 71-year-old gentleman with a past medical history of CAD, history of CHF, diabetes mellitus, history of DVT, GERD, hyperlipidemia, non-Hodgkin's lymphoma, history of pneumonitis, history of CAD, stent, presented with chest pain to [facility] recently. The patient under cardiac catheterization and showed 2-vessel disease and the patient underwent CAD, CABG x4 and the patient admitted for further evaluation and treatment. Patient is being closely monitored. At this time, patient is intubated and sedated. Unable to give a history. Taken by discussion with the staff at this time. The patient is currently on multiple drips including insulin at 1.5 units/h and the vent settings are 550, 50% and 5 of PEEP. PAST MEDICAL HISTORY: History of CAD, history of CHF, diabetes mellitus type 2, DVT, GERD, hypertension, hyperlipidemia, history of sleep apnea, history of CAD, stent. Medications prior to admission include home medications are metformin 1000 mg p.o. b.i.d., Aldactone 25 mg p.o. b.i.d., KCL 20 mEq p.o. q.h.s., omeprazole 20 mg p.o. daily, Nitrostat 0.4 sublingual p.r.n., multivitamin 1 p.o. daily, Claritin 10 mg q.h.s., Imdur 60 mg q.a.m., Lasix 20 mg q.a.m., Flonase 2 sprays p.r.n., Plavix 75 mg p.o. daily, vitamin D3 two thousand daily, Lipitor 80 mg q.h.s., aspirin 81 mg daily, aspirin 325 mg once. Allergies are none. FAMILY HISTORY: History of myocardial infarction in the family. SOCIAL HISTORY: No smoking. Occasional alcohol according to the chart. REVIEW OF SYSTEMS: Could not be taken, patient mechanically ventilated and sedated. PHYSICAL EXAM: Pulse is 96, blood pressure 124/55, respirations 16, temperature normal, pulse ox 100% on mechanical settings, 50% FiO2. HEENT: Conjunctivae normal. NECK: No jugular venous distension. CARDIOVASCULAR SYSTEM: S1, S2, muffled. RESPIRATIONS: On mechanical ventilation. ABDOMEN: Soft, nontender. NERVOUS SYSTEM: Patient mechanically insufflated. SKIN: No ulcer, rash, bleeding. Labs are WBC is 5.6, hemoglobin is 7.7, Accu-Cheks noted. ASSESSMENT: 1. Coronary artery disease, coronary artery bypass grafting x4. 2. Diabetes mellitus type 2. 3. Anemia. 4. Thrombocytopenia, mild. 5. History of coronary artery disease. 6. History of congestive heart failure. 7. History of deep venous thrombosis. 8. History of gastroesophageal reflux disease. 9. Hypertension. 10. Hyperlipidemia. 11. History of myocardial infarction. 12. History of sleep apnea, 13. History of non-Hodgkin lymphoma. 14. History of pneumonitis. 15. History of CPAP. 16. History of deep venous thrombosis. 17. History of coronary artery disease, stent. 18. History of hernia repair. 19. FULL CODE. RECOMMENDATION: In this 71-year-old gentleman who presented with multiple complex medical issues, will monitor the patient closely, continue with the current medications, continue with the symptomatic treatment. Otherwise, at this time mechanical ventilation, continue with the insulin drip at the current rate and monitor blood sugars closely. Accu-Cheks are between 159 and 183. Will monitor the patient closely. Patient was taking metformin 1000 mg p.o. b.i.d. which could restarted once the patient's is p.o. Will follow the patient closely. Thank you, Dr. Tomlin for letting us participate in the care of this patient.
[2016-09-04] MEDS: HEPARIN SODIUM,PORCINE 5,000 UNIT/ML 1 ML VIAL SQ SCH ×2 (08:58→15:30)
[2016-09-04] MEDS ORDERED: ATORVASTATIN 40 MG TAB PO SCH (09:00)
[2016-09-04] MEDS ORDERED: PANTOPRAZOLE 40 MG/10 ML VIAL IVP SCH (09:00)
[2016-09-04] MEDS ORDERED: METOPROLOL TARTRATE 12.5 MG TAB PO SCH (09:00)
[2016-09-04] MEDS ORDERED: CLOPIDOGREL 75 MG TAB PO SCH (09:00)
[2016-09-04] MEDS: IPRATROPIUM-ALBUTEROL 3 ML NEB INHALATION PRN ×2 (09:07→11:58)
[2016-09-04] MEDS: MUPIROCIN 2% OINT 22 GM TUBE NASAL SCH ×2 (09:17→22:40)
[2016-09-04] MEDS: METOPROLOL TARTRATE 25 MG TAB PO SCH ×3 (09:17→22:41)
[2016-09-04] MEDS: ASPIRIN 325 MG TAB PO SCH (09:17)
--- NOTE | 2016-09-04 09:25 | OP ---
DATE OF SERVICE: 09/03/2016 SURGEON: Silas Tomlin MD FINANCIAL COST ANALYST: Fransico Camacho NP, Tano HARRELL PREOPERATIVE DIAGNOSIS: Coronary artery disease. POSTOPERATIVE DIAGNOSIS: Coronary artery disease. OPERATION: 1. Coronary artery bypass grafting x4 vessels (left internal mammary artery to left anterior descending artery, saphenous vein graft to diagonal artery 1, saphenous vein graft to diagonal artery 2, saphenous vein graft to posterior descending artery). 2. Endoscopic vein harvest left greater saphenous vein. 3. Epiaortic ultrasound. 4. Transesophageal echocardiogram. ANESTHESIA: General. SPECIMENS REMOVED: None. COMPLICATIONS: None. INDICATIONS: The patient is a 71-year-old male with a history of multiple medical problems including diabetes mellitus, hypertension, coronary artery disease status post coronary stents, and a history of non-Hodgkin's lymphoma, who reports chest pain with activity. Cardiac catheterization did reveal multivessel coronary artery disease. A coronary artery bypass was recommended. The risks and benefits, alternatives to this procedure were discussed with the patient. All of his questions were answered. Consent was obtained. FINDINGS: The left internal mammary artery was good conduit with brisk flow. The saphenous vein was good conduit. The LAD measured 1.5 mm. The diagonal 1 measured 1.5 mm. The diagonal 2 measured 1.3 mm. The posterior descending artery measured 1.3 mm. The distal circumflex artery was too small for bypass. PROCEDURE IN DETAIL: The patient was taken to the operating room, placed supine on the operating table. After induction of general anesthesia, he was prepped and draped in the usual sterile fashion. Preoperative transesophageal echocardiogram confirmed a preserved ejection fraction. There was trace mitral regurgitation. There was no other significant valvular pathology. A median sternotomy was performed. The left internal mammary artery was harvested in standard fashion, taking care to clip all branches. Intravenous heparin was administered and the vessel was transected distally revealing brisk flow. Simultaneously greater saphenous vein was harvested from the left lower extremity using endoscopic technique. All branches were tied. The vein was a good conduit. A pericardial cradle was created. The ascending aorta was palpated and appeared to be free of disease. An Epiaortic ultrasound was then performed of the ascending aorta. No significant calcified disease or atheromatous disease was identified. An arterial cannula was placed in the distal ascending aorta. A venous cannula was placed through the right atrial appendage and directed into the IVC. Both antegrade and retrograde catheters were placed as well. The patient was placed on cardiopulmonary bypass with good decompression of the heart. The aortic crossclamp was applied. Cold blood potassium cardioplegia was delivered in both antegrade and retrograde fashion to achieve arrest of the heart. I began by inspecting the inferior wall. The posterior descending artery was identified. It appeared to contain disease but a soft spot for bypass was identified. A small arteriotomy was created. This vessel accepted the 1 mm probe both proximally and distally. Using saphenous vein in a reverse fashion, an end-to-side anastomosis was created. This was performed using running 7-0 Prolene suture. Next, the lateral wall was inspected. The distal circumflex artery appeared quite small, I did not feel was amenable to bypass. The diagonal 1 artery was then identified. A small arteriotomy was created. Using saphenous vein in reverse fashion, an end-to-side anastomosis was created. The graft was hemostatic and had great flow. Next, the diagonal 2 artery was identified. A small arteriotomy was created. Using saphenous vein in an end to side fashion, an end-to-side anastomosis was created. The anastomosis was hemostatic and had good flow. Finally, the left anterior descending artery was identified. Upon palpation, there were several areas of disease along with previously placed stents. A soft spot in the mid to distal area was identified. A small arteriotomy was created. This vessel accepted a 1.5 mm probe distally. Using the left internal mammary artery, an end-to-side anastomosis was created. This was performed using running 8-0 Prolene suture. The graft was hemostatic. The mammary pedicle was intact down to the anterior surface of the heart. Attention was then turned to the proximal anastomoses. These were performed to the ascending aorta in an end-to-side fashion using running 6-0 Prolene sutures. Next, 1 liter of warm blood was delivered in retrograde fashion. Lidocaine and magnesium were administered as well. The aortic crossclamp was removed. Grafts were de-aired in the standard fashion. All distal anastomoses were inspected and appeared to be hemostatic. Retrograde catheter was removed. Temporary atrial and ventricular pacing wires were placed and brought through the skin. The patient was then weaned off cardiopulmonary bypass. He without difficulty. Antegrade catheter was removed. Follow-up transesophageal echocardiogram confirmed a preserved ejection fraction and no change in the valvular pathology. Protamine was administered. There were no adverse reactions. The arterial cannula was removed. The venous cannula was removed. The mediastinum was then copiously irrigated with warm saline solution. All surgical sites were inspected and appeared to be hemostatic. Reinforcement sutures were placed as needed. Soft tissue was reapproximated over the ascending aorta as well as over the apex of the heart. A straight [address] [place] chest tube was placed directed the left pleural space. Two additional straight [address] [place] chest tubes were placed directed into the mediastinum. These were secured to the skin using sutures. The sternum was then reapproximated using stainless steel wires in a [id number] fashion. The remainder of the wound was closed in layers. A sterile dressing was applied. The patient appeared to tolerate the procedure well. There were no immediate complications. He returned to the ICU in critical but stable condition.
--- NOTE | 2016-09-04 09:29 | P.PN ---
<Lavelle Camacho Charity - Last Filed: 09/04/16 09:14> Progress Note - Text CV Surgery Nursing POD: #1, coronary artery bypass grafting surgery 4 with placement of his left internal mammary artery to his left anterior descending coronary artery, a reverse greater saphenous vein graft placed to his posterior descending coronary artery, reverse greater saphenous vein graft placed to his diagonal coronary artery #1, and a reverse greater saphenous vein graft placed to his diagonal coronary artery #2. Endoscopic vein harvest of his left greater saphenous vein. Intraoperative transesophageal echocardiogram and epi-aortic ultrasound. Patient awake and alert, no distress noted, no specific complaints. Vital Signs: Afebrile, current temperature is 99.3F. Vital Signs - 24 hr 09/03/16 09/03/16 09/03/16 15:21 15:30 15:44 Temperature 95.0 F L Pulse Rate 94 93 Respiratory Rate Blood Pressure O2 Sat by Pulse 100 Oximetry 09/03/16 09/03/16 09/03/16 15:45 16:00 16:12 Temperature 95.0 F L Pulse Rate 94 95 95 Respiratory 12 Rate Blood Pressure 133/60 O2 Sat by Pulse 100 91 L Oximetry 09/03/16 09/03/16 09/03/16 16:15 16:22 16:30 Temperature 94.8 F L Pulse Rate 95 96 98 Respiratory 12 Rate Blood Pressure 135/58 O2 Sat by Pulse 93 L 100 99 Oximetry 09/03/16 09/03/16 09/03/16 16:37 16:45 17:00 Temperature 95.0 F L Pulse Rate 100 100 99 Respiratory 12 Rate Blood Pressure 133/54 O2 Sat by Pulse 100 100 100 Oximetry 09/03/16 09/03/16 09/03/16 17:15 17:30 17:45 Temperature Pulse Rate 98 100 100 Respiratory Rate Blood Pressure O2 Sat by Pulse 100 100 Oximetry 09/03/16 09/03/16 09/03/16 17:55 18:00 18:15 Temperature 96.6 F L Pulse Rate 99 100 Respiratory Rate Blood Pressure 115/60 115/60 O2 Sat by Pulse 100 100 Oximetry 09/03/16 09/03/16 09/03/16 18:30 18:45 19:00 Temperature 97.3 F L Pulse Rate 98 98 97 Respiratory 12 Rate Blood Pressure 115/60 115/60 O2 Sat by Pulse 100 100 100 Oximetry 09/03/16 09/03/16 09/03/16 19:15 19:29 19:30 Temperature Pulse Rate 96 98 97 Respiratory 12 12 Rate Blood Pressure O2 Sat by Pulse 100 100 Oximetry 09/03/16 09/03/16 09/03/16 19:44 19:45 20:00 Temperature Pulse Rate 98 94 96 Respiratory 16 18 Rate Blood Pressure O2 Sat by Pulse 100 100 Oximetry 09/03/16 09/03/16 09/03/16 20:15 20:30 20:45 Temperature Pulse Rate 97 96 97 Respiratory 14 16 16 Rate Blood Pressure O2 Sat by Pulse 100 100 97 Oximetry 09/03/16 09/03/16 09/03/16 21:00 21:15 21:30 Temperature Pulse Rate 96 96 96 Respiratory 12 18 12 Rate Blood Pressure O2 Sat by Pulse 100 100 100 Oximetry 09/03/16 09/03/16 09/03/16 21:45 22:00 22:15 Temperature Pulse Rate 96 95 93 Respiratory 12 16 16 Rate Blood Pressure O2 Sat by Pulse 100 100 99 Oximetry 09/03/16 09/03/16 09/03/16 22:30 22:45 23:00 Temperature Pulse Rate 94 94 95 Respiratory 16 16 12 Rate Blood Pressure O2 Sat by Pulse 100 99 100 Oximetry 09/03/16 09/03/16 09/03/16 23:13 23:15 23:30 Temperature Pulse Rate 92 92 94 Respiratory 17 15 Rate Blood Pressure O2 Sat by Pulse 100 100 Oximetry 09/03/16 09/04/16 09/04/16 23:45 00:00 00:15 Temperature Pulse Rate 93 93 93 Respiratory 12 12 12 Rate Blood Pressure O2 Sat by Pulse 100 99 99 Oximetry 09/04/16 09/04/16 09/04/16 00:30 00:45 01:00 Temperature Pulse Rate 93 93 91 Respiratory 14 14 14 Rate Blood Pressure O2 Sat by Pulse 99 99 98 Oximetry 09/04/16 09/04/16 09/04/16 01:15 01:30 01:45 Temperature Pulse Rate 92 92 94 Respiratory 16 14 15 Rate Blood Pressure O2 Sat by Pulse 98 98 98 Oximetry 09/04/16 09/04/16 09/04/16 02:00 02:15 02:30 Temperature Pulse Rate 94 96 96 Respiratory 32 H 15 13 Rate Blood Pressure 124/62 O2 Sat by Pulse 98 97 97 Oximetry 09/04/16 09/04/16 09/04/16 02:45 03:00 03:15 Temperature Pulse Rate 94 96 92 Respiratory 13 14 17 Rate Blood Pressure O2 Sat by Pulse 100 98 98 Oximetry 09/04/16 09/04/16 09/04/16 03:30 03:45 04:00 Temperature Pulse Rate 94 94 95 Respiratory 13 14 17 Rate Blood Pressure 124/62 124/62 O2 Sat by Pulse 99 99 99 Oximetry 09/04/16 09/04/16 09/04/16 04:15 04:30 04:45 Temperature Pulse Rate 94 94 97 Respiratory 14 13 20 Rate Blood Pressure O2 Sat by Pulse 98 98 98 Oximetry 09/04/16 09/04/16 09/04/16 05:00 05:15 05:30 Temperature Pulse Rate 93 94 96 Respiratory 16 16 18 Rate Blood Pressure O2 Sat by Pulse 100 98 98 Oximetry 09/04/16 09/04/16 09/04/16 05:45 06:00 06:15 Temperature Pulse Rate 96 95 96 Respiratory 25 H 16 16 Rate Blood Pressure 136/61 O2 Sat by Pulse 97 98 97 Oximetry 09/04/16 09/04/16 09/04/16 06:30 06:45 07:00 Temperature Pulse Rate 95 93 92 Respiratory 24 18 20 Rate Blood Pressure 136/61 O2 Sat by Pulse 95 96 93 L Oximetry ABP, PAP, CO, CI - Last 8 Hours Arterial Blood Pressure 135/58 Arterial Blood Pressure 151/61 Arterial Blood Pressure 149/62 Arterial Blood Pressure 140/65 Arterial Blood Pressure 129/59 Arterial Blood Pressure 127/62 Arterial Blood Pressure 141/63 Arterial Blood Pressure 131/62 Arterial Blood Pressure 124/54 Arterial Blood Pressure 145/66 Arterial Blood Pressure 127/58 Arterial Blood Pressure 126/61 Arterial Blood Pressure 124/59 Arterial Blood Pressure 126/59 Arterial Blood Pressure 119/57 Arterial Blood Pressure 131/59 Arterial Blood Pressure 125/55 Arterial Blood Pressure 123/54 Arterial Blood Pressure 127/55 Arterial Blood Pressure 134/56 Arterial Blood Pressure 118/55 Arterial Blood Pressure 112/57 Arterial Blood Pressure 107/51 Arterial Blood Pressure 109/53 Arterial Blood Pressure 101/50 Pulmonary Artery Pressure 29/19 Pulmonary Artery Pressure 32/21 Pulmonary Artery Pressure 28/18 Pulmonary Artery Pressure 30/20 Pulmonary Artery Pressure 27/21 Pulmonary Artery Pressure 30/21 Pulmonary Artery Pressure 27/17 Pulmonary Artery Pressure 27/18 Pulmonary Artery Pressure 26/16 Pulmonary Artery Pressure 28/20 Pulmonary Artery Pressure 26/18 Pulmonary Artery Pressure 25/17 Pulmonary Artery Pressure 25/17 Pulmonary Artery Pressure 25/18 Pulmonary Artery Pressure 26/16 Pulmonary Artery Pressure 28/18 Pulmonary Artery Pressure 25/14 Pulmonary Artery Pressure 24/15 Pulmonary Artery Pressure 26/15 Pulmonary Artery Pressure 26/14 Pulmonary Artery Pressure 28/16 Pulmonary Artery Pressure 23/16 Pulmonary Artery Pressure 23/15 Pulmonary Artery Pressure 22/16 Pulmonary Artery Pressure 22/14 Cardiac Output 6.6 Cardiac Output 6.6 Cardiac Output 6.6 Cardiac Output 6.6 Cardiac Output 6.6 Cardiac Output 6.6 Cardiac Output 6.6 Cardiac Output 6.6 Cardiac Output 6.6 Cardiac Output 6.3 Cardiac Output 6.3 Cardiac Output 6.3 Cardiac Output 6.3 Cardiac Output 6.3 Cardiac Output 6.3 Cardiac Output 6.3 Cardiac Output 6.3 Cardiac Output 6.3 Cardiac Output 6.3 Cardiac Output 6.3 Cardiac Output 6.2 Cardiac Output 6.2 Cardiac Output 6.2 Cardiac Output 6.2 Cardiac Output 6.2 Cardiac Index 3.1 Cardiac Index 2.9 Labs: Short CBC 09/03/16 09/03/16 09/03/16 Range/Units 15:30 17:35 21:30 WBC 5.3 5.6 6.4 (3.8-10.6) k/uL Hgb 7.9 L D 7.7 L 7.8 L (13.0-17.5) gm/dL Hct 23.6 L 24.2 L 23.3 L (39.0-53.0) % Plt Count 50 L* D 64 L 78 L (150-450) k/uL Neutrophils # 4.2 4.0 5.4 (1.3-7.7) k/uL 09/04/16 Range/Units 05:00 WBC 6.9 (3.8-10.6) k/uL Hgb 7.5 L (13.0-17.5) gm/dL Hct 22.7 L (39.0-53.0) % Plt Count 68 L (150-450) k/uL Neutrophils # 5.7 (1.3-7.7) k/uL BMP 09/03/16 09/03/16 09/04/16 15:30 21:30 05:00 Sodium 142 140 144 Potassium 3.5 4.4 3.9 Chloride 111 H 110 H 112 H Carbon Dioxide 25 24 25 BUN 15 14 14 Creatinine 0.82 0.80 0.86 Glucose 149 H 159 H 131 H Calcium 7.8 L 7.7 L 7.7 L Liver Function 09/03/16 09/04/16 Range/Units 15:30 05:00 Total Bilirubin 1.8 H 0.9 (0.2-1.3) mg/dL AST 381 H 230 H (17-59) U/L ALT 125 H 131 H (21-72) U/L Alkaline Phosphatase 81 112 (38-126) U/L Albumin 2.8 L 2.9 L (3.5-5.0) g/dL ABG ABG pH 7.36 (7.35-7.45) 09/04/16 02:47 ABG pCO2 41 mmHg (35-45) 09/04/16 02:47 ABG pO2 98 mmHg (83-108) 09/04/16 02:47 ABG O2 Saturation 97.0 % (94-97) 09/04/16 02:47 PT/INR, D-dimer PT 11.7 sec (9.0-12.0) 09/04/16 05:00 INR 1.2 (<1.1) 09/04/16 05:00 IV Fluids: lactated Ringer's at 50 mL per hour. Primacor drip at 0.2 mcg/kg/m Insulin drip at 2.5 units per hour Cleviprex drip at 2 mg per hour Nitroglycerin drip at 5 mcg/m Cardiac output: 6.6 Cardiac index: 3.1 Pulmonary artery pressures: 27/18 CVP: 14 Lungs: Essentially clear throughout, diminished bilateral bases. Respirations are symmetrical and unlabored. O2 sat: 93% on 3 L nasal cannula. I/S: 500-750 mL, reviewed with the patient important of using his incentive spirometry every hour while awake. The patient did give good return demonstration on his incentive spirometry. Heart: S1S2, regular rhythm and rate, positive rub, negative for S3, gallop or murmur. Bedside telemetry showing normal sinus rhythm with first-degree heart block heart rate 92. Sternum stable, chest incision clean with dressing clean and dry. His heart hugger is in place and patient is demonstrating proper use. Left leg incisions clean dry and well approximated. No drainage noted. Knee-high ADAIR hose and sequential compression devices in place to bilateral lower extremities. Abdomen: Soft, Positive bowel sounds present in all 4 quadrants. CBGs: 134-231 mg/dL in the last 24 hours. U/O: Adequate, Jackson catheter for accurate I&O. 400 mL output in the last 8 hours. Chest Tubes: Mediastinal chest tubes with positive air leak. Draining thin serosanguineous drainage. 60 mL output in the last 8 hours, 800 mL output since surgery. Left pleural chest tube without air leak, draining thin serosanguineous drainage. 100 mL output in the last 8 hours, 370 mL output since surgery. The chest tubes all remained to low continuous wall suction. 24 hr Total: Intake & Output 09/02/16 09/03/16 09/04/16 09/05/16 06:59 06:59 06:59 06:59 Intake Total 2529.084 315.324 Output Total 4357 100 Balance -1827.916 215.324 Weight 97.5 kg Active Medications Hydrocodone Bitart/Acetaminophen (Lilly 5-325) 2 each PO Q4HR PRN PRN Reason: Severe Pain Hydrocodone Bitart/Acetaminophen (Lilly 5-325) 1 each PO Q4HR PRN PRN Reason: Moderate Pain Albuterol/Ipratropium (Duoneb 0.5 Mg-3 Mg/3 Ml Soln) 3 ml INHALATION RT-Q2H PRN PRN Reason: Shortness Of Breath Or Wheezing Last Admin: 09/04/16 09:07 Dose: 3 ml Aspirin (Aspirin) 325 mg PO DAILY [facility] Last Admin: 09/04/16 09:17 Dose: 325 mg Benzocaine/Menthol (Cepacol Lozenge) 1 each MUCOUS MEM Q2H PRN PRN Reason: Sore Throat Bisacodyl (Dulcolax) 10 mg RECTAL DAILY PRN PRN Reason: Constipation Heparin Sodium (Porcine) (Heparin) 5,000 unit SQ Q8HR [facility] Last Admin: 09/04/16 08:58 Dose: 5,000 unit Acetaminophen 1,000 mg/ IV (Solution) 100 mls @ 400 mls/hr IVPB Q6HR [facility] Stop: 09/04/16 18:01 Last Admin: 09/04/16 06:02 Dose: 400 mls/hr Albumin Human 250 ml/ IV (Solution) 250 mls @ 250 mls/hr IVPB Q1HR PRN PRN Reason: For Volume Stop: 09/05/16 14:45 Calcium Gluconate 2,000 mg/ (Sodium Chloride) 120 mls @ 100 mls/hr IVPB ONCE PRN PRN Reason: Ionized Calcium less than 4.4 Stop: 09/04/16 14:45 Clevidipine 25 mg/ IV Solution 50 mls @ 2 mls/hr IV .Q24H AMANDA; 1 MG/HR PRN Reason: Protocol Last Titration: 09/04/16 06:24 Dose: 2 mg/hr, 4 mls/hr Insulin Human Regular 100 unit (/ Sodium Chloride) 101 mls @ 0 mls/hr IV .Q0M AMANDA; Per Protocol PRN Reason: Protocol Last Titration: 09/04/16 07:11 Dose: 3 units/hr, 3.03 mls/hr Lactated Ringer's (Lactated Ringers) 1,000 mls @ 50 mls/hr IV .Q20H AMANDA Last Admin: 09/03/16 15:40 Dose: 50 mls/hr Milrinone Lactate/Dextrose 20 (mg/ IV Solution) 100 mls @ 0 mls/hr IV .Q0M AMANDA ; Per Protocol PRN Reason: Protocol Stop: 09/04/16 12:00 Last Titration: 09/04/16 08:00 Dose: 0.1 mcg/kg/min, 2.78 mls/hr Nitroglycerin/Dextrose 50 mg/ (IV Solution) 250 mls @ 1.5 mls/hr IV .Q24H AMANDA PRN Reason: 5 MCG/MIN Last Admin: 09/03/16 18:32 Dose: 5 mcg/min, 1.5 mls/hr Magnesium Hydroxide (Milk Of Magnesia) 2,400 mg PO BID PRN PRN Reason: Constipation Metoclopramide HCl (Reglan) 10 mg IVP Q4H PRN PRN Reason: Nausea And Vomiting Metoprolol Tartrate (Lopressor) 25 mg PO BID AMANDA Last Admin: 09/04/16 09:17 Dose: 25 mg Miscellaneous Information (Magnesium Per Protocol) 1 each MISCELLANE DAILY PRN ; Protocol PRN Reason: Per Protocol Miscellaneous Information (Phosphorus Per Protocol) 1 each MISCELLANE DAILY PRN ; Protocol PRN Reason: Per Protocol Miscellaneous Information (Potassium Per Protocol) 1 each MISCELLANE DAILY PRN ; Protocol PRN Reason: Per Protocol Morphine Sulfate (Morphine Sulfate (Inj)) 2 mg IVP Q2H PRN PRN Reason: Severe Pain Mupirocin (Bactroban Oint) 1 applic NASAL BID [facility] Stop: 09/06/16 21:01 Last Admin: 09/04/16 09:17 Dose: 1 applic Ondansetron HCl (Zofran) 4 mg IVP Q6HR PRN PRN Reason: Nausea And Vomiting Oxycodone HCl (Oxyir) 10 mg PO Q4H PRN PRN Reason: Severe Pain Stop: 09/04/16 23:59 Oxycodone HCl (Oxyir) 5 mg PO Q4H PRN PRN Reason: Moderate Pain Stop: 09/04/16 23:59 Pantoprazole Sodium (Protonix) 40 mg IVP DAILY [facility] Last Admin: 09/04/16 09:18 Dose: 40 mg Senna/Docusate Sodium (Senokot-S) 2 each PO HS [facility] Sodium Chloride (Saline Flush) 10 ml IV BID [facility] Last Admin: 09/04/16 09:18 Dose: Not Given Plan: 1. We will hold his atorvastatin for now due to his elevated liver enzymes. His metoprolol will be increased to 25 mg by mouth twice a day. 2. He will receive a full strength aspirin 325 mg by mouth daily, although we will hold his Plavix for now due to his platelet count of 68. 3. His Primacor drip will be decreased to 0.1 mcg/kg/m and will be discontinued at noon today. 4. His chest x-ray from this morning shows a 20% right pneumothorax, we will repeat a chest x-ray today at 12 noon to reevaluate. Dissection was increased to -30 cm of continuous wall to his mediastinal chest tubes. 5. Increase activity as tolerated, physical therapy and cardiac rehabilitation following. 6. DVT and GI prophylaxis in place. 7. Wean oxygen as tolerated to maintain an O2 sat greater than 91%. Dr. Schaffer is following patient for pulmonary management. 8. Further recommendations as patient progresses with his recovery. <Silas Tomlin - Last Filed: 09/04/16 15:20> Progress Note - Text The patient was seen and examined. I agree with the above assessment and plan. Overall he looks good. We will increase his beta aruna this morning. We will give him a full strength aspirin but hold his Plavix secondary to thrombocytopenia. We will wean his Primacor off and discontinue his [place]. His chest x-ray today does reveal a small right apical pneumothorax. He does have an air leak and has been sternal chest tube. I would like to repeat a chest x- ray later today. I do not think there is an indication for placement of a chest tube at this point.
[2016-09-04 09:49] LABS: Glucose,Whole Blood 288 mg/dL (75-99)
--- NOTE | 2016-09-04 10:15 | CONS ---
DATE OF CONSULTATION: Mr. Ibrahim is postop day #1 status post 4-vessel bypass grafting. He was extubated this morning. Doing well. He had some increased mediastinal bleeding. We increased his PEEP to 10 and that seemed to settle down. Currently on 4 L. The patient is on a number of different drips including some Primacor 0.1 mcg/kg per minute, insulin drip at 3 units an hour, nitroglycerin drip at 5 mcg/min, ( ) at 2 mg/h and NLR at 50 mL an hour. The patient is doing reasonably well. Feeling well. He is on 4 L nasal O2. His past medical history is positive for diabetes, hypertension, CAD, with previous stent, non-Hodgkin's lymphoma. He also has a history of gastroesophageal reflux disease. Surgical history includes right inguinal hernia repair, Mediport placement. Home medications included Lasix, Imdur, Aldactone, potassium chloride, metformin, Lipitor, aspirin, multiple vitamins, vitamin D, Plavix, nitroglycerin, omeprazole, Claritin and Flonase nasal spray. Allergies are denied. Social history is negative for tobacco. No significant alcohol intake. No illicit drug use. Family history is positive for CVA and [place]. REVIEW OF SYSTEMS: CONSTITUTIONAL: Negative. NEUROLOGICAL: Negative. HEENT: Negative. CARDIOVASCULAR: As above. PULMONARY: Negative. GI/: Negative. RHEUMATOLOGICAL/IMMUNOLOGIC: Negative. ENDOCRINOLOGIC: Negative. Current vital signs are good. Temperature 96.6, heart rate 92, respiratory rate 20, blood pressure 136/61, mean 86, 4 L saturation 96 to 97%. Appears in no acute distress. HEENT examination is grossly unremarkable. Mucous membranes are moist. Nasal O2 in place. Neck is supple. Full range of motion. No adenopathy or thyromegaly. Neck veins are flat. Cardiovascular examination reveals regular rhythm and rate. S1, S2 normal. No S3, S4 or murmur. Lungs reveal relatively clear breath sounds. A few scattered rhonchi. Cannot take deep breaths. Abdomen is soft. Bowel sounds are heard. Extremities are intact. No cyanosis, clubbing or edema. Skin is without rash. Neurologic examination is nonfocal. Chest x-ray shows postsurgical changes with small lungs. White count 6.9, hemoglobin 7.5, hematocrit 22.7, platelet count 68,000. PT, INR, PTT normal, fibrinogen normal. Sodium 144, potassium 3.9, chloride is 112, CO2 of 25, BUN and creatinine were normal. AST 230, ALT 131, albumin 2.9. Medications are reviewed. ASSESSMENT: 1. Postoperative day #1 status post 4-vessel bypass grafting. 2. History of diabetes. 3. Hypertension. 4. History of coronary artery disease with previous stent placement. 5. History of non-Hodgkin's lymphoma. 6. History of gastroesophageal reflux disease. PLAN: Will continue to follow. No additional recommendations are made. Prognosis is guarded. She is on updrafts in the form of DuoNeb q.i.d. p.r.n. No additional recommendations are made.
[2016-09-04 10:24] LABS: Glucose,Whole Blood 266 mg/dL (75-99)
--- NOTE | 2016-09-04 10:46 | P.CRDCN ---
History of Present Illness Consult date: 09/04/16 History of present illness: This is a pleasant 71-year-old gentleman who sees Dr. VC Tijerina as an outpatient with a known history of CAD and prior stenting of the LAD was performed several months ago was experiencing chest discomfort consistent with angina. He underwent a heart catheterization by Dr. Tijerina and that showed severe in-stent restenosis involving heavily calcified LAD. Beside that he was found to have severe disease involving the first and second diagonal of the LAD. I artery that was grafting was recommended and the patient underwent yesterday elective CABG 4 where he received WHITNEY to LAD, reverse SVG to diagonal one, reverse SVG to diagonal 2, and reverse SVG to PDA. The patient was extubated yesterday and overall seems to be stable. He continues to be in normal sinus mechanism with a slight sinus tachycardia. The dose of metoprolol has increased earlier by the surgical team. He has been making good urine as well. The platelet are low and the patient is on aspirin only without Plavix. The liver function enzymes are elevated and that's why we are holding the statin on him as well. Past Medical History Past Medical History: Coronary Artery Disease (CAD), Cancer, Heart Failure, Diabetes Mellitus, Deep Vein Thrombosis (DVT), GERD/Reflux, Hyperlipidemia, Hypertension, Myocardial Infarction (ME), Sleep Apnea/CPAP/BIPAP Additional Past Medical History / Comment(s): lymphoma non hodgkins, PNEUMONITIS , not using CPAP, DVT 2014, diff swallowing, Last Myocardial Infarction Date:: 2015 History of Any Multi-Drug Resistant Organisms: None Reported Past Surgical History: Heart Catheterization, Heart Catheterization With Stent, Hernia Repair, Tonsillectomy Additional Past Surgical History / Comment(s): 3 cardiac stents 11/2015, one stent 12/2015, PORT A CATH INSERTED AND LATER REMOVED x2, stent in pancreas, cardiac [id number] Past Anesthesia/Blood Transfusion Reactions: No Reported Reaction Date of Last Stent Placement:: 01/09/16 Past Psychological History: No Psychological Hx Reported Additional Psychological History / Comment(s): . Smoking Status: Never smoker Past Alcohol Use History: Rare Past Drug Use History: None Reported - Past Family History Father Family Medical History: CVA/TIA Additional Family Medical History / Comment(s): Father was a smoker. Mother Family Medical History: Myocardial Infarction (ME) Additional Family Medical History / Comment(s): Mother of a massive ME at the age of 60 yrs. Medications and Allergies Home Medications Medication Instructions Recorded Confirmed Type Isosorbide Mononitrate [Imdur] 60 mg PO QAM 10/31/13 09/03/16 History Potassium Chloride [Potassium 20 meq PO HS 10/31/13 09/03/16 History Chloride ER] Cholecalciferol [Vitamin D3] 2,000 unit PO DAILY 11/28/15 09/03/16 History Furosemide 20 mg PO QAM 11/28/15 09/03/16 History Multivitamins, Thera [Multivitamin 1 tab PO DAILY 11/28/15 09/03/16 History (formulary)] Atorvastatin [Lipitor] 80 mg PO HS 01/08/16 09/03/16 History Fluticasone Nasal Reardan [Flonase 2 spr EA NOSTRIL HS PRN 01/08/16 09/03/16 History Nasal Reardan] Nitroglycerin Sl Tabs [Nitrostat] 0.4 mg SUBLINGUAL DIRECTED PRN 01/08/1603/12 History Clopidogrel Bisulfate [Plavix] 75 mg PO DAILY 07/14/16 09/03/16 History Loratadine [Claritin] 10 mg PO HS 07/14/16 09/03/16 History Omeprazole 20 mg PO DAILY 08/14/16 09/03/16 History metFORMIN HCL [Metformin HCl ER] 1,000 mg PO BID 08/28/16 09/03/16 History Aspirin 325 mg PO ONCE 09/03/16 09/03/16 History Allergies Allergy/AdvReac Type Severity Reaction Status Date / Time No Known Allergies Allergy Verified 08/28/16 13:56 Physical Exam Vitals: Vital Signs Temp Pulse Resp BP Pulse Ox 09/04/16 10:00 96 30 H 141/61 93 L 09/04/16 09:07 92 09/04/16 09:00 95 29 H 93 L 09/04/16 08:00 92 22 92 L 09/04/16 07:00 92 20 136/61 93 L 09/04/16 06:45 93 18 96 09/04/16 06:30 95 24 95 09/04/16 06:15 96 16 97 09/04/16 06:00 95 16 136/61 98 09/04/16 05:45 96 25 H 97 09/04/16 05:30 96 18 98 09/04/16 05:15 94 16 98 09/04/16 05:00 93 16 100 09/04/16 04:45 97 20 98 09/04/16 04:30 94 13 98 09/04/16 04:15 94 14 98 09/04/16 04:00 95 17 99 09/04/16 03:45 94 14 124/62 99 09/04/16 03:30 94 13 124/62 99 09/04/16 03:15 92 17 98 09/04/16 03:00 96 14 98 09/04/16 02:45 94 13 100 09/04/16 02:30 96 13 97 09/04/16 02:15 96 15 97 09/04/16 02:00 94 32 H 124/62 98 09/04/16 01:45 94 15 98 09/04/16 01:30 92 14 98 09/04/16 01:15 92 16 98 09/04/16 01:00 91 14 98 09/04/16 00:45 93 14 99 09/04/16 00:30 93 14 99 09/04/16 00:15 93 12 99 09/04/16 00:00 93 12 99 09/03/16 23:45 93 12 100 09/03/16 23:30 94 15 100 09/03/16 23:15 92 17 100 09/03/16 23:13 92 09/03/16 23:00 95 12 100 09/03/16 22:45 94 16 99 09/03/16 22:30 94 16 100 09/03/16 22:15 93 16 99 09/03/16 22:00 95 16 100 09/03/16 21:45 96 12 100 09/03/16 21:30 96 12 100 09/03/16 21:15 96 18 100 09/03/16 21:00 96 12 100 09/03/16 20:45 97 16 97 09/03/16 20:30 96 16 100 09/03/16 20:15 97 14 100 09/03/16 20:00 96 18 100 09/03/16 19:45 94 16 100 09/03/16 19:44 98 09/03/16 19:30 97 12 100 09/03/16 19:29 98 09/03/16 19:15 96 12 100 09/03/16 19:00 97.3 F L 97 12 100 09/03/16 18:45 98 115/60 100 09/03/16 18:30 98 115/60 100 09/03/16 18:15 100 115/60 100 09/03/16 18:00 99 115/60 100 09/03/16 17:55 96.6 F L 09/03/16 17:45 100 09/03/16 17:30 100 100 09/03/16 17:15 98 100 09/03/16 17:00 99 100 09/03/16 16:45 100 100 09/03/16 16:37 95.0 F L 100 12 133/54 100 09/03/16 16:30 98 99 09/03/16 16:22 94.8 F L 96 12 135/58 100 09/03/16 16:15 95 93 L 09/03/16 16:12 95.0 F L 95 12 133/60 09/03/16 16:00 95 91 L 09/03/16 15:45 94 100 09/03/16 15:44 95.0 F L 09/03/16 15:30 93 100 09/03/16 15:21 94 Intake and Output 09/03/16 09/04/16 09/04/16 22:59 06:59 14:59 Intake Total 3375.136 8788.333 910.426 Output Total 2262 895 450 Balance -938.249 310.333 460.426 Intake: IV 770.2 1088.6 532.7 ACETAMINOPHEN IV (For NPO 100 200 ) 1,000 mg In Empty Bag 1 bag @ 400 mls/hr IVPB Q6HR AMANDA Rx#:[id number] Co/CI 90 90 30 Desmopressin Inj 28 mcg 50 In Sodium Chloride 0.9% 50 ml @ 200 mls/hr IVPB ONCE STA Rx#:[id number] Lactated Ringers 1,000 ml 290 400 160 @ 50 mls/hr IV .Q20H AMANDA Rx#:[id number] Magnesium Sulfate-D5w Pmx 100 100 1 gm In Dextrose/Water 1 100ml.bag @ 100 mls/hr IVPB Q1H AMANDA Rx#: [id number] Milrinone-D5w Pmx 20 mg 58.7 41.6 5.2 In Dextrose/Water 1 100ml .bag @ Per Protocol IV . Q0M AMANDA Rx#:[id number] Nitroglycerin-D5w Pmx 50 4.5 12.0 1.5 mg In Dextrose/Water 1 250ml.bag @ 5 MCG/MIN 1.5 mls/hr IV .Q24H AMANDA Rx#: [id number] Potassium Chloride 10 meq 100 100 In Water For Injection 1 100ml.bag @ 100 mls/hr IVPB Q1H AMANDA Rx#: [id number] Potassium Chloride 20 meq 50 In Water For Injection 1 100ml.bag @ 50 mls/hr IVPB ONCE ONE Rx#: [id number] ceFAZolin 2 gm In Sodium 100 100 100 Chloride 0.9% 100 ml @ 100 mls/hr IVPB Q8HR AMANDA Rx#:[id number] pressure bag 27 45 36 Intake, IV Titration 135.551 56.733 77.726 Amount Clevidipine Butyrate 25 9.333 0.6 mg In Empty Bag 1 bag @ 1 MG/HR 2 mls/hr IV .Q24H AMANDA Rx#:[id number] Insulin Regular 100 unit 13.459 15.869 23.604 In Sodium Chloride 0.9% 100 ml @ Per Protocol IV .Q0M AMANDA Rx#:[id number] Milrinone-D5w Pmx 20 mg 16.989 54.122 In Dextrose/Water 1 100ml .bag @ Per Protocol IV . Q0M AMANDA Rx#:[id number] Propofol 500 mg In Empty 95.770 40.264 Bag 1 bag @ Titrate IV . Q0M AMANDA Rx#:[id number] Oral 60 300 Blood Product 418 Platelet Pheresis Acda 418 Unit [id number] Output: Chest Tube Drainage 963 290 210 Mediastinal 691 190 110 Pleural Catheter Left 272 100 100 Gastric Drainage 200 Urine 1299 405 240 Other: Voiding Method Indwelling Catheter Indwelling Catheter Weight 97.5 kg ABP, PAP, CO, CI - Last 8 Hours Arterial Blood Pressure 142/50 Arterial Blood Pressure 139/52 Arterial Blood Pressure 127/56 Arterial Blood Pressure 135/58 Arterial Blood Pressure 151/61 Arterial Blood Pressure 149/62 Arterial Blood Pressure 140/65 Arterial Blood Pressure 129/59 Arterial Blood Pressure 127/62 Arterial Blood Pressure 141/63 Arterial Blood Pressure 131/62 Arterial Blood Pressure 124/54 Arterial Blood Pressure 145/66 Arterial Blood Pressure 127/58 Arterial Blood Pressure 126/61 Arterial Blood Pressure 124/59 Arterial Blood Pressure 126/59 Arterial Blood Pressure 119/57 Arterial Blood Pressure 131/59 Arterial Blood Pressure 125/55 Arterial Blood Pressure 123/54 Pulmonary Artery Pressure 18/9 Pulmonary Artery Pressure 21/11 Pulmonary Artery Pressure 27/15 Pulmonary Artery Pressure 29/19 Pulmonary Artery Pressure 32/21 Pulmonary Artery Pressure 28/18 Pulmonary Artery Pressure 30/20 Pulmonary Artery Pressure 27/21 Pulmonary Artery Pressure 30/21 Pulmonary Artery Pressure 27/17 Pulmonary Artery Pressure 27/18 Pulmonary Artery Pressure 26/16 Pulmonary Artery Pressure 28/20 Pulmonary Artery Pressure 26/18 Pulmonary Artery Pressure 25/17 Pulmonary Artery Pressure 25/17 Pulmonary Artery Pressure 25/18 Pulmonary Artery Pressure 26/16 Pulmonary Artery Pressure 28/18 Pulmonary Artery Pressure 25/14 Pulmonary Artery Pressure 24/15 Cardiac Output 6.5 Cardiac Output 6.5 Cardiac Output 6.6 Cardiac Output 6.6 Cardiac Output 6.6 Cardiac Output 6.6 Cardiac Output 6.6 Cardiac Output 6.6 Cardiac Output 6.6 Cardiac Output 6.6 Cardiac Output 6.6 Cardiac Output 6.6 Cardiac Output 6.3 Cardiac Output 6.3 Cardiac Output 6.3 Cardiac Output 6.3 Cardiac Output 6.3 Cardiac Output 6.3 Cardiac Output 6.3 Cardiac Output 6.3 Cardiac Output 6.3 Cardiac Index 3.1 Cardiac Index 3.1 - Constitutional General appearance: no acute distress - Respiratory Respiratory: bilateral: diminished - Cardiovascular Rhythm: regular Heart sounds: normal: S1, S2 Results 09/04/16 05:00 09/04/16 05:00 Cardiac Enzymes 09/03/16 09/04/16 Range/Units 15:30 05:00 AST 381 H 230 H (17-59) U/L Coagulation 09/03/16 09/03/16 09/03/16 Range/Units 15:30 17:35 21:30 PT 12.6 H 11.7 (9.0-12.0) sec APTT 26.3 22.6 25.9 (22.0-30.0) sec 09/04/16 Range/Units 05:00 PT 11.7 (9.0-12.0) sec APTT 24.3 (22.0-30.0) sec CBC 09/03/16 09/03/16 09/03/16 Range/Units 15:30 17:35 21:30 WBC 5.3 5.6 6.4 (3.8-10.6) k/uL RBC 2.65 L 2.67 L 2.59 L (4.30-5.90) m/uL Hgb 7.9 L D 7.7 L 7.8 L (13.0-17.5) gm/dL Hct 23.6 L 24.2 L 23.3 L (39.0-53.0) % Plt Count 50 L* D 64 L 78 L (150-450) k/uL 09/04/16 Range/Units 05:00 WBC 6.9 (3.8-10.6) k/uL RBC 2.55 L (4.30-5.90) m/uL Hgb 7.5 L (13.0-17.5) gm/dL Hct 22.7 L (39.0-53.0) % Plt Count 68 L (150-450) k/uL Comprehensive Metabolic Panel 09/03/16 09/03/16 09/04/16 Range/Units 15:30 21:30 05:00 Sodium 142 140 144 (137-145) mmol/L Potassium 3.5 4.4 3.9 (3.5-5.1) mmol/L Chloride 111 H 110 H 112 H (98-107) mmol/L Carbon Dioxide 25 24 25 (22-30) mmol/L BUN 15 14 14 (9-20) mg/dL Creatinine 0.82 0.80 0.86 (0.66-1.25) mg/dL Glucose 149 H 159 H 131 H (74-99) mg/dL Calcium 7.8 L 7.7 L 7.7 L (8.4-10.2) mg/dL AST 381 H 230 H (17-59) U/L ALT 125 H 131 H (21-72) U/L Alkaline Phosphatase 81 112 (38-126) U/L Total Protein 4.1 L 4.5 L (6.3-8.2) g/dL Albumin 2.8 L 2.9 L (3.5-5.0) g/dL Current Medications Generic Name Dose Route Start Last Admin Trade Name Freq PRN Reason Stop Dose Admin Hydrocodone Bitart/Acetaminophen 2 each 09/04/16 23:59 Eugene 5-325 PO Q4HR PRN Severe Pain Hydrocodone Bitart/Acetaminophen 1 each 09/04/16 23:59 Eugene 5-325 PO Q4HR PRN Moderate Pain Albuterol/Ipratropium 3 ml 09/04/16 14:47 09/04/16 09:07 Duoneb 0.5 Mg-3 Mg/3 Ml Soln INHALATION 3 ml RT-Q2H PRN Administration Shortness Of Breath Or Wheezing Aspirin 325 mg 09/04/16 09:00 09/04/16 09:17 Aspirin PO 325 mg DAILY AMANDA Administration Benzocaine/Menthol 1 each 09/03/16 14:44 Cepacol Lozenge MUCOUS MEM Q2H PRN Sore Throat Bisacodyl 10 mg 09/04/16 14:46 Dulcolax RECTAL DAILY PRN Constipation Heparin Sodium (Porcine) 5,000 unit 09/03/16 23:00 09/04/16 08:58 Heparin SQ 5,000 unit Q8HR AMANDA Administration Acetaminophen 1,000 mg/ IV 100 mls @ 400 mls/hr 09/03/16 18:00 09/04/16 06:02 Solution IVPB 09/04/16 18:01 400 mls/hr Q6HR AMANDA Administration Albumin Human 250 ml/ IV 250 mls @ 250 mls/hr 09/03/16 14:44 Solution IVPB 09/05/16 14:45 Q1HR PRN For Volume Calcium Gluconate 2,000 mg/ 120 mls @ 100 mls/hr 09/03/16 14:44 Sodium Chloride IVPB 09/04/16 14:45 ONCE PRN Ionized Calcium less than 4.4 Clevidipine 25 mg/ IV Solution 50 mls @ 2 mls/hr 09/03/16 14:45 09/04/16 06: 24 IV 2 mg/hr .Q24H AMANDA 4 mls/hr Protocol Titration 1 MG/HR Insulin Human Regular 100 unit 101 mls @ 0 mls/hr 09/03/16 15:00 09/04/16 10: 22 / Sodium Chloride IV 9.5 units/hr .Q0M AMANDA 9.59 mls/hr Protocol Titration Per Protocol Lactated Ringer's 1,000 mls @ 50 mls/hr 09/03/16 14:45 09/03/16 15:40 Lactated Ringers IV 50 mls/hr .Q20H AMANDA Administration Milrinone Lactate/Dextrose 20 100 mls @ 0 mls/hr 09/03/16 14:45 09/04/16 08: 00 mg/ IV Solution IV 09/04/16 12:00 0.1 mcg/kg/min .Q0M AMANDA 2.78 mls/hr Protocol Titration Per Protocol Nitroglycerin/Dextrose 50 mg/ 250 mls @ 1.5 mls/hr 09/03/16 14:45 09/03/16 18 :32 IV Solution IV 5 mcg/min .Q24H AMANDA 1.5 mls/hr 5 MCG/MIN Administration Magnesium Hydroxide 2,400 mg 09/04/16 14:46 Milk Of Magnesia PO BID PRN Constipation Metoclopramide HCl 10 mg 09/03/16 14:44 Reglan IVP Q4H PRN Nausea And Vomiting Metoprolol Tartrate 25 mg 09/04/16 09:00 09/04/16 09:17 Lopressor PO 25 mg BID AMANDA Administration Miscellaneous Information 1 each 09/03/16 14:44 Magnesium Per Protocol MISCELLANE DAILY PRN Per Protocol Protocol Miscellaneous Information 1 each 09/03/16 14:44 Phosphorus Per Protocol MISCELLANE DAILY PRN Per Protocol Protocol Miscellaneous Information 1 each 09/03/16 14:44 Potassium Per Protocol MISCELLANE DAILY PRN Per Protocol Protocol Morphine Sulfate 2 mg 09/03/16 14:44 Morphine Sulfate (Inj) IVP Q2H PRN Severe Pain Mupirocin 1 applic 09/03/16 21:00 09/04/16 09:17 Bactroban Oint NASAL 09/06/16 21:01 1 applic BID AMANDA Administration Ondansetron HCl 4 mg 09/03/16 14:44 Zofran IVP Q6HR PRN Nausea And Vomiting Oxycodone HCl 10 mg 09/03/16 14:44 Oxyir PO 09/04/16 23:59 Q4H PRN Severe Pain Oxycodone HCl 5 mg 09/03/16 14:44 09/04/16 09:52 Oxyir PO 09/04/16 23:59 5 mg Q4H PRN Administration Moderate Pain Pantoprazole Sodium 40 mg 09/04/16 09:00 09/04/16 09:18 Protonix IVP 40 mg DAILY AMANDA Administration Senna/Docusate Sodium 2 each 09/04/16 21:00 Senokot-S PO HS AMANDA Sodium Chloride 10 ml 09/03/16 21:00 09/04/16 09:18 Saline Flush IV Not Given BID [facility] Intake and Output 09/03/16 09/04/16 09/04/16 22:59 06:59 14:59 Intake Total 1641.959 8624.333 910.426 Output Total 2262 895 450 Balance -938.249 310.333 460.426 Intake: IV 770.2 1088.6 532.7 ACETAMINOPHEN IV (For NPO 100 200 ) 1,000 mg In Empty Bag 1 bag @ 400 mls/hr IVPB Q6HR AMANDA Rx#:[id number] Co/CI 90 90 30 Desmopressin Inj 28 mcg 50 In Sodium Chloride 0.9% 50 ml @ 200 mls/hr IVPB ONCE STA Rx#:[id number] Lactated Ringers 1,000 ml 290 400 160 @ 50 mls/hr IV .Q20H AMANDA Rx#:[id number] Magnesium Sulfate-D5w Pmx 100 100 1 gm In Dextrose/Water 1 100ml.bag @ 100 mls/hr IVPB Q1H AMANDA Rx#: [id number] Milrinone-D5w Pmx 20 mg 58.7 41.6 5.2 In Dextrose/Water 1 100ml .bag @ Per Protocol IV . Q0M AMANDA Rx#:[id number] Nitroglycerin-D5w Pmx 50 4.5 12.0 1.5 mg In Dextrose/Water 1 250ml.bag @ 5 MCG/MIN 1.5 mls/hr IV .Q24H AMANDA Rx#: [id number] Potassium Chloride 10 meq 100 100 In Water For Injection 1 100ml.bag @ 100 mls/hr IVPB Q1H AMANDA Rx#: [id number] Potassium Chloride 20 meq 50 In Water For Injection 1 100ml.bag @ 50 mls/hr IVPB ONCE ONE Rx#: [id number] ceFAZolin 2 gm In Sodium 100 100 100 Chloride 0.9% 100 ml @ 100 mls/hr IVPB Q8HR AMANDA Rx#:[id number] pressure bag 27 45 36 Intake, IV Titration 135.551 56.733 77.726 Amount Clevidipine Butyrate 25 9.333 0.6 mg In Empty Bag 1 bag @ 1 MG/HR 2 mls/hr IV .Q24H AMANDA Rx#:[id number] Insulin Regular 100 unit 13.459 15.869 23.604 In Sodium Chloride 0.9% 100 ml @ Per Protocol IV .Q0M AMANDA Rx#:[id number] Milrinone-D5w Pmx 20 mg 16.989 54.122 In Dextrose/Water 1 100ml .bag @ Per Protocol IV . Q0M AMANDA Rx#:[id number] Propofol 500 mg In Empty 95.770 40.264 Bag 1 bag @ Titrate IV . Q0M AMANDA Rx#:[id number] Oral 60 300 Blood Product 418 Platelet Pheresis Acda 418 Unit [id number] Output: Chest Tube Drainage 963 290 210 Mediastinal 691 190 110 Pleural Catheter Left 272 100 100 Gastric Drainage 200 Urine 1299 405 240 Other: Voiding Method Indwelling Catheter Indwelling Catheter Weight 97.5 kg 09/04/16 05:00 09/04/16 05:00 Assessment and Plan Plan: Assessment #1 status post elective CABG 4 as described above #2 known CAD with prior stenting of the proximal LAD #3 acute respiratory failure which has improved #4 anemia seems to be stable #5 thrombocytopenia The plan #1 continue the current medical treatment with aspirin as well as metoprolol #2 continue holding the Plavix in view of the thrombocytopenia #3 continue holding the statin in view of the abnormal liver function test #4 follow-up with the patient
[2016-09-04 11:39] LABS: Glucose,Whole Blood 212 mg/dL (75-99)
[2016-09-04] MEDS: IPRATROPIUM-ALBUTEROL 3 ML NEB INHALATION SCH ×3 (12:13→19:28)
[2016-09-04 12:18] LABS: Glucose,Whole Blood 195 mg/dL (75-99)
--- NOTE | 2016-09-04 12:29 | XR ---
EXAMINATION TYPE: XR chest 1V portable DATE OF EXAM: 09/04/2016 12:15 PM HISTORY: Post Op CABG COMPARISON: NONE TECHNIQUE: Single view of the chest is submitted. FINDINGS: No change in indwelling tubes and catheters. The endotracheal tube has been removed. NG tube is also removed. Post operative changes of CABG. Right-sided pneumothorax appears slightly smaller in size and is estimated at 15%. No sizable left-si ded pneumothorax. Scattered Pleural-parencymal opacities may reflect atelectasis. The heart is not enlarged. IMPRESSION: 1. Post operative changes of CABG. 2. Right-sided pneumothorax persists.
[2016-09-04 13:31] LABS: Glucose,Whole Blood 213 mg/dL (75-99)
[2016-09-04 14:27] LABS: Glucose,Whole Blood 209 mg/dL (75-99)
[2016-09-04] MEDS ORDERED: BISACODYL 10 MG SUPP RECTAL PRN (14:46)
[2016-09-04 15:39] LABS: Glucose,Whole Blood 208 mg/dL (75-99)
[2016-09-04 17:01] LABS: Glucose,Whole Blood 134 mg/dL (75-99)
--- NOTE | 2016-09-04 17:04 | PN ---
DATE OF SERVICE: 09/04/2016 This 71-year-old gentleman who was admitted with CAD, CABG, is extubated. Patient has a chest tube at this time. Patient is being closely monitored in ICU. No chest pain. No palpitation. No fever. Blood sugar is also monitored. Patient is on insulin drip at 8 units per hour. On exam, alert and oriented x3. Pulse 89, blood pressure 118/55, respiration 20, temperature normal, pulse ox 99% on 3 L. HEENT: Conjunctivae normal. NECK: No jugular venous distention. CARDIOVASCULAR SYSTEM: S1, S2 muffled. RESPIRATORY SYSTEM: Breath sounds diminished at the bases. A few scattered rhonchi. ABDOMEN: Soft. NERVOUS SYSTEM: No focal deficit. LABS: Hemoglobin 7.5. Glucose noted, 208. AST is 230. ALT is 131. ASSESSMENT: 1. Coronary artery disease, coronary artery bypass grafting x4. 2. Diabetes mellitus, type 2, on IV insulin drip. 3. Anemia. 4. Thrombocytopenia, mild. 5. History of coronary artery disease. 6. History of congestive heart failure. 7. History of deep venous thrombosis. 8. History of gastroesophageal reflux disease. 9. Hypertension, essential. 10. Hyperlipidemia. 11. History of myocardial infarction. 12. History of sleep apnea. 13. History of non-Hodgkin's lymphoma. 14. History of pneumonitis. 15. History of CPAP. 16. History of deep venous thrombosis. 17. History of coronary artery disease and stent. 18. History of hernia repair. 19. Increased AST, ALT. 20. FULL CODE. RECOMMENDATIONS AND DISCUSSION: I recommend to continue with the current medications, continue with the monitoring, symptomatic treatment. Otherwise, continue with incentive spirometry. Continue with insulin drip. Once the patient is taking p.o., insulin drip may be transitioned to 3-shot regimen. family doctor. LM
[2016-09-04 18:07] LABS: Glucose,Whole Blood 106 mg/dL (75-99)
[2016-09-04] MEDS: INSULIN LISPRO (humaLOG) 300 UNIT/3 ML VIAL SQ SCH (18:08)
[2016-09-04 19:05] LABS: Glucose,Whole Blood 236 mg/dL (75-99)
[2016-09-04] MEDS: INSULIN NPH 300 UNIT/3 ML VIAL SQ SCH (22:39)
[2016-09-04] MEDS: SENNOSIDES-DOCUSATE SODIUM 1 EACH TAB PO SCH (22:45)
[2016-09-04 22:47] LABS: Glucose,Whole Blood 153 mg/dL (75-99)
[2016-09-04] MEDS ORDERED: HYDROcodone/APAP 5-325MG 1 EACH TAB PO PRN (23:59)
[2016-09-05] MEDS: HEPARIN SODIUM,PORCINE 5,000 UNIT/ML 1 ML VIAL SQ SCH ×3 (02:08→15:35)
[2016-09-05 02:22] LABS: Glucose,Whole Blood 140 mg/dL (75-99)
[2016-09-05] MEDS: HYDROcodone/APAP 5-325MG 1 EACH TAB PO PRN ×2 (03:58→08:52)
[2016-09-05 04:50] LABS: Anisocytosis Slight; Basophils % (A) 0 %; CH 29.1; CHCM 31.9; Eosinophils # (A) 0.1 k/uL (0-0.7); Eosinophils % (A) 1 %; HCT 24.5 % (39.0-53.0); HDW 2.87; HGB 7.7 gm/dL (13.0-17.5); Hypochromasia Slight; Luc # (Auto) 0.23; Luc % (Auto) 3; Lymphocytes # (A) 1.2 k/uL (1.0-4.8); Lymphocytes % (A) 13 %; MCH 28.8 pg (25.0-35.0); MCHC 31.4 g/dL (31.0-37.0); MCV 91.9 fL (80.0-100.0); Mean Platelet Volume 8.8; Monocytes # (A) 0.5 k/uL (0-1.0); Monocytes % (A) 6 %; Neutrophils # (A) 7.1 k/uL (1.3-7.7); Neutrophils % (A) 78 %; RBC 2.66 m/uL (4.30-5.90); WBC 9.2 k/uL (3.8-10.6)
[2016-09-05 04:55] LABS: INR 1.3 (<1.1); Prothrombin Time 13.2 sec (9.0-12.0)
[2016-09-05 05:02] LABS: Ionized Calcium 4.8 mg/dL (4.5-5.3)
[2016-09-05 05:25] LABS: ALT 93 U/L (21-72); AST 150 U/L (17-59); Alkaline Phosphatase 122 U/L (38-126); Anion Gap 5 mmol/L; Blood Urea Nitrogen 18 mg/dL (9-20); Calcium 7.9 mg/dL (8.4-10.2); Carbon Dioxide 25 mmol/L (22-30); Chloride 108 mmol/L (98-107); Glucose 134 mg/dL (74-99); Magnesium 2.3 mg/dL (1.6-2.3); Non-African American GFR(MDRD) >60 (>60 ml/min/1.73 sqM); Sodium 138 mmol/L (137-145); Total Bilirubin 0.7 mg/dL (0.2-1.3); Total Protein 4.5 g/dL (6.3-8.2)
[2016-09-05] MEDS: LACTATED RINGERS 1,000 ML IV SCH ×3 (07:02→15:35)
--- NOTE | 2016-09-05 07:09 | XR ---
EXAMINATION TYPE: XR chest 1V portable DATE OF EXAM: 09/05/2016 6:52 AM HISTORY: Post Op CABG COMPARISON: 09/04/2016 TECHNIQUE: Single view of the chest is submitted. FINDINGS: SG catheter, mediastianal drains and chest tubes are stable. Post operative changes of CABG. Sided pneumothorax is essentially unchanged. Scattered Pleural-parencymal opacities may reflect atelectasis. The heart is not enlarged. IMPRESSION: 1. Stable right-sided pneumothorax. 2. Stable scattered pleural parenchymal opacities.
[2016-09-05 07:49] LABS: Glucose,Whole Blood 146 mg/dL (75-99)
[2016-09-05] MEDS: METOPROLOL TARTRATE 25 MG TAB PO SCH ×2 (07:49→09:02)
[2016-09-05] MEDS: PANTOPRAZOLE 40 MG TABLET PO SCH (07:49)
[2016-09-05] MEDS: IPRATROPIUM-ALBUTEROL 3 ML NEB INHALATION SCH ×4 (08:05→19:47)
[2016-09-05] MEDS: INSULN ASP PRT/INSULIN ASPART 100 UNIT/ML 10 ML VIAL SQ SCH (08:54)
[2016-09-05] MEDS: ASPIRIN 325 MG TAB PO SCH (09:01)
[2016-09-05] MEDS: METOPROLOL TARTRATE 50 MG TAB PO SCH (09:03)
[2016-09-05] MEDS: MUPIROCIN 2% OINT 22 GM TUBE NASAL SCH (09:03)
--- NOTE | 2016-09-05 09:59 | P.PN ---
Subjective Principal diagnosis: Coronary artery disease status post coronary artery bypass grafting 4. This is a very pleasant 71-year-old gentleman who has a known history of coronary artery disease. He is status post coronary artery bypass grafting 4 utilizing a WHITNEY to the LAD, saphenous vein grafts to the diagonal one, diagonal 2, and posterior descending artery. He is seen again today in follow- up in the intensive care unit. He is currently sitting up in a chair at the bedside. He is awake and alert in no acute distress. His pain is well controlled. He is pulling approximately 750 MLS on the incentive spirometer. His chest x-ray shows stable right-sided pneumothorax with scattered parenchymal opacities. Mediastinal and pleural chest tubes remain in place. He is maintaining good O2 saturations in the upper 90s on 2 L/m per nasal cannula. Hemoglobin 7.7. Liver enzymes are improving AST 150, ALT 93. Objective - Vital Signs Vital signs: Vital Signs Temp 97.3 F L 09/03/16 19:00 Pulse 86 09/05/16 09:00 Resp 21 09/05/16 09:00 BP 154/81 09/05/16 08:00 Pulse Ox 98 09/05/16 09:00 Intake & Output 09/04/16 09/05/16 09/05/16 18:59 06:59 18:59 Intake Total 1362.109 0275.334 431.725 Output Total 1245 1000 180 Balance 553.227 210.334 251.725 Weight 91.8 kg Intake: IV 1104.7 788 157 ACETAMINOPHEN IV (For NPO 100 ) 1,000 mg In Empty Bag 1 bag @ 400 mls/hr IVPB Q6HR AMANDA Rx#:[id number] Co/CI 80 80 Lactated Ringers 1,000 ml 510 600 130 @ 20 mls/hr IV .Q24H AMANDA Rx#:[id number] Magnesium Sulfate-D5w Pmx 100 1 gm In Dextrose/Water 1 100ml.bag @ 100 mls/hr IVPB Q1H AMANAD Rx#: [id number] Milrinone-D5w Pmx 20 mg 5.2 In Dextrose/Water 1 100ml .bag @ Per Protocol IV . Q0M AMANDA Rx#:[id number] Nitroglycerin-D5w Pmx 50 1.5 mg In Dextrose/Water 1 250ml.bag @ 5 MCG/MIN 1.5 mls/hr IV .Q24H AMANDA Rx#: [id number] Potassium Chloride 10 meq 100 In Water For Injection 1 100ml.bag @ 100 mls/hr IVPB Q1H AMANDA Rx#: [id number] ceFAZolin 2 gm In Sodium 100 Chloride 0.9% 100 ml @ 100 mls/hr IVPB Q8HR AMANDA Rx#:[id number] pressure bag 108 108 27 Intake, IV Titration 193.527 22.334 54.725 Amount Clevidipine Butyrate 25 17.733 22.334 mg In Empty Bag 1 bag @ 1 MG/HR 2 mls/hr IV .Q24H AMANDA Rx#:[id number] Insulin Regular 100 unit 71.672 In Sodium Chloride 0.9% 100 ml @ Per Protocol IV .Q0M AMANDA Rx#:[id number] Lactated Ringers 1,000 ml 50 @ 20 mls/hr IV .Q24H AMANDA Rx#:[id number] Milrinone-D5w Pmx 20 mg 54.122 In Dextrose/Water 1 100ml .bag @ Per Protocol IV . Q0M AMANDA Rx#:[id number] Nitroglycerin-D5w Pmx 50 54.725 mg In Dextrose/Water 1 250ml.bag @ 5 MCG/MIN 1.5 mls/hr IV .Q24H AMANDA Rx#: [id number] Oral 500 400 220 Output: Chest Tube Drainage 560 380 60 Mediastinal 320 210 20 Pleural Catheter Left 240 170 40 Urine 685 620 120 Other: Voiding Method Indwelling Catheter Indwelling Catheter # Bowel Movements 0 ABP, PAP, CO, CI - Last Documented Arterial Blood Pressure 136/59 Pulmonary Artery Pressure 29/13 Cardiac Output 6.7 Cardiac Index 2.6 - Exam GENERAL EXAM: Alert, comfortable in no apparent distress. HEAD: Normocephalic. EYES: Normal reaction of pupils, equal size. NOSE: Clear with pink turbinates. THROAT: No erythema or exudates. NECK: No masses, no JVD. CHEST: Sternal dressing is dry and intact.. LUNGS: Equal air entry with crackles in the posterior bases. Chest tubes in place.. CVS: S1 and S2 normal with no audible murmurs, regular rhythm. ABDOMEN: No hepatosplenomegaly, normal bowel sounds, no guarding or rigidity. SPINE: No scoliosis or deformity SKIN: No rashes CENTRAL NERVOUS SYSTEM: No focal deficits, tone is normal in all 4 extremities. Extremities: There are bilateral sequential compression devices in place. Tommy wraps in place. Peripheral pulses are intact. - Labs CBC & Chem 7: 09/05/16 04:30 09/05/16 04:30 Labs: Abnormal Lab Results - Last 24 Hours (Table) 09/04/16 09/04/16 09/04/16 Range/Units 10:21 11:35 12:15 RBC (4.30-5.90) m/uL Hgb (13.0-17.5) gm/dL Hct (39.0-53.0) % RDW (11.5-15.5) % Plt Count (150-450) k/uL PT (9.0-12.0) sec Chloride (98-107) mmol/L Glucose (74-99) mg/dL POC Glucose (mg/dL) 266 H 212 H 195 H (75-99) mg/dL Calcium (8.4-10.2) mg/dL AST (17-59) U/L ALT (21-72) U/L Total Protein (6.3-8.2) g/dL Albumin (3.5-5.0) g/dL 09/04/16 09/04/16 09/04/16 Range/Units 13:29 14:24 15:36 RBC (4.30-5.90) m/uL Hgb (13.0-17.5) gm/dL Hct (39.0-53.0) % RDW (11.5-15.5) % Plt Count (150-450) k/uL PT (9.0-12.0) sec Chloride (98-107) mmol/L Glucose (74-99) mg/dL POC Glucose (mg/dL) 213 H 209 H 208 H (75-99) mg/dL Calcium (8.4-10.2) mg/dL AST (17-59) U/L ALT (21-72) U/L Total Protein (6.3-8.2) g/dL Albumin (3.5-5.0) g/dL 09/04/16 09/04/16 09/04/16 Range/Units 16:59 18:05 19:02 RBC (4.30-5.90) m/uL Hgb (13.0-17.5) gm/dL Hct (39.0-53.0) % RDW (11.5-15.5) % Plt Count (150-450) k/uL PT (9.0-12.0) sec Chloride (98-107) mmol/L Glucose (74-99) mg/dL POC Glucose (mg/dL) 134 H 106 H 236 H (75-99) mg/dL Calcium (8.4-10.2) mg/dL AST (17-59) U/L ALT (21-72) U/L Total Protein (6.3-8.2) g/dL Albumin (3.5-5.0) g/dL 09/04/16 09/05/16 09/05/16 Range/Units 22:34 02:20 04:30 RBC (4.30-5.90) m/uL Hgb (13.0-17.5) gm/dL Hct (39.0-53.0) % RDW (11.5-15.5) % Plt Count (150-450) k/uL PT (9.0-12.0) sec Chloride 108 H (98-107) mmol/L Glucose 134 H (74-99) mg/dL POC Glucose (mg/dL) 153 H 140 H (75-99) mg/dL Calcium 7.9 L (8.4-10.2) mg/dL AST 150 H (17-59) U/L ALT 93 H (21-72) U/L Total Protein 4.5 L (6.3-8.2) g/dL Albumin 2.7 L (3.5-5.0) g/dL 09/05/16 09/05/16 09/05/16 Range/Units 04:30 04:30 07:47 RBC 2.66 L (4.30-5.90) m/uL Hgb 7.7 L (13.0-17.5) gm/dL Hct 24.5 L (39.0-53.0) % RDW 16.0 H (11.5-15.5) % Plt Count 97 L (150-450) k/uL PT 13.2 H (9.0-12.0) sec Chloride (98-107) mmol/L Glucose (74-99) mg/dL POC Glucose (mg/dL) 146 H (75-99) mg/dL Calcium (8.4-10.2) mg/dL AST (17-59) U/L ALT (21-72) U/L Total Protein (6.3-8.2) g/dL Albumin (3.5-5.0) g/dL Assessment and Plan Plan: Impression: #1 Coronary artery disease status post coronary artery bypass grafting utilizing a WHITNEY to the LAD and saphenous vein grafts to the diagonal one, diagonal 2, and posterior descending artery. Postoperative day #2. #2 History of congestive heart failure. #3 Diabetes mellitus. #4 Gastroesophageal reflux disease. #5 Hyperlipidemia. #6 History of non-Hodgkin's lymphoma. #7 Prior history of coronary artery disease with stent placement. Plan: The patient was seen and evaluated by Dr. Schaffer. His chest x-ray, labs and medications were all reviewed. The patient is currently stable from the pulmonary and critical care standpoint. We'll continue with his current medications. We'll continue to encourage the increased use of the incentive spirometer and cough and deep breathing exercises. We'll increase his activity as tolerated. We will continue to follow and make further recommendations based on his clinical status.
--- NOTE | 2016-09-05 11:09 | P.PN ---
Subjective Principal diagnosis: Coronary artery disease. POD #2 coronary artery bypass grafting 4 vessels (left internal mammary artery to the left anterior descending artery, saphenous vein graft to diagonal artery 1, saphenous vein graft to diagonal artery 2, saphenous vein graft to posterior descending artery). Endoscopic vein harvest left greater saphenous vein. Epi- aortic ultrasound. Transesophageal echocardiogram. Patient currently sitting up in a recliner in no apparent distress. Eating breakfast. No issues overnight. Objective - Vital Signs Vital signs: Vital Signs Temp 97.3 F L 09/03/16 19:00 Pulse 86 09/05/16 09:00 Resp 21 09/05/16 09:00 BP 154/81 09/05/16 08:00 Pulse Ox 98 09/05/16 09:00 Intake & Output 09/04/16 09/05/16 09/05/16 18:59 06:59 18:59 Intake Total 0675.151 4760.334 431.725 Output Total 1245 1000 180 Balance 553.227 210.334 251.725 Weight 91.8 kg Intake: IV 1104.7 788 157 ACETAMINOPHEN IV (For NPO 100 ) 1,000 mg In Empty Bag 1 bag @ 400 mls/hr IVPB Q6HR AMANDA Rx#:[id number] Co/CI 80 80 Lactated Ringers 1,000 ml 510 600 130 @ 20 mls/hr IV .Q24H AMANDA Rx#:[id number] Magnesium Sulfate-D5w Pmx 100 1 gm In Dextrose/Water 1 100ml.bag @ 100 mls/hr IVPB Q1H AMANDA Rx#: [id number] Milrinone-D5w Pmx 20 mg 5.2 In Dextrose/Water 1 100ml .bag @ Per Protocol IV . Q0M AMANDA Rx#:[id number] Nitroglycerin-D5w Pmx 50 1.5 mg In Dextrose/Water 1 250ml.bag @ 5 MCG/MIN 1.5 mls/hr IV .Q24H AMANDA Rx#: [id number] Potassium Chloride 10 meq 100 In Water For Injection 1 100ml.bag @ 100 mls/hr IVPB Q1H AMANDA Rx#: [id number] ceFAZolin 2 gm In Sodium 100 Chloride 0.9% 100 ml @ 100 mls/hr IVPB Q8HR AMANDA Rx#:[id number] pressure bag 108 108 27 Intake, IV Titration 193.527 22.334 54.725 Amount Clevidipine Butyrate 25 17.733 22.334 mg In Empty Bag 1 bag @ 1 MG/HR 2 mls/hr IV .Q24H AMANDA Rx#:[id number] Insulin Regular 100 unit 71.672 In Sodium Chloride 0.9% 100 ml @ Per Protocol IV .Q0M AMANDA Rx#:[id number] Lactated Ringers 1,000 ml 50 @ 20 mls/hr IV .Q24H AMANDA Rx#:[id number] Milrinone-D5w Pmx 20 mg 54.122 In Dextrose/Water 1 100ml .bag @ Per Protocol IV . Q0M AMANDA Rx#:[id number] Nitroglycerin-D5w Pmx 50 54.725 mg In Dextrose/Water 1 250ml.bag @ 5 MCG/MIN 1.5 mls/hr IV .Q24H AMANDA Rx#: [id number] Oral 500 400 220 Output: Chest Tube Drainage 560 380 60 Mediastinal 320 210 20 Pleural Catheter Left 240 170 40 Urine 685 620 120 Other: Voiding Method Indwelling Catheter Indwelling Catheter # Bowel Movements 0 ABP, PAP, CO, CI - Last Documented Arterial Blood Pressure 136/59 Pulmonary Artery Pressure 29/13 Cardiac Output 6.7 Cardiac Index 2.6 - Constitutional General appearance: Present: cooperative, no acute distress - Respiratory Details: Lungs sounds diminished bilaterally. Respirations even, nonlabored. Currently on 2 L nasal cannula with oxygen saturation 98%. Able to achieve 750 mL on his incentive spirometry. Weak cough. Mediastinal chest tube with 110 mL output overnight, 450 mL the last 24 hours. Positive air leak. Left pleural chest tube to with 110 mL output overnight, 350 mL in the last 24 hours. No air leak present - Cardiovascular Details: S1, S2 present. Regular rate and rhythm, normal sinus rhythm on telemetry. Left IJ Cordis with [place] catheter still present. Sternum stable. Heart hugger in place with patient demonstrating appropriate use. No edema present. Teds/SCDs present. - Gastrointestinal Gastrointestinal Comment(s): Abdomen soft, nontender, nondistended. Active bowel sounds 4 quadrants. Tolerating diet. - Genitourinary Genitourinary Comment(s): Jackson present draining clear, yellow urine. Approximately 30-50 mL per hour overnight. - Integumentary Integumentary Comment(s): Anterior chest incision well approximated and covered with dry intact dressing. - Musculoskeletal Musculoskeletal: Present: strength equal bilaterally - Psychiatric Psychiatric: Present: A&O x's 3, appropriate affect, intact judgment & insight - Allied health notes Allied health notes reviewed: nursing - Labs CBC & Chem 7: 09/05/16 04:30 09/05/16 04:30 Labs: Abnormal Lab Results - Last 24 Hours (Table) 09/04/16 09/04/16 09/04/16 Range/Units 11:35 12:15 13:29 RBC (4.30-5.90) m/uL Hgb (13.0-17.5) gm/dL Hct (39.0-53.0) % RDW (11.5-15.5) % Plt Count (150-450) k/uL PT (9.0-12.0) sec Chloride (98-107) mmol/L Glucose (74-99) mg/dL POC Glucose (mg/dL) 212 H 195 H 213 H (75-99) mg/dL Calcium (8.4-10.2) mg/dL AST (17-59) U/L ALT (21-72) U/L Total Protein (6.3-8.2) g/dL Albumin (3.5-5.0) g/dL 09/04/16 09/04/16 09/04/16 Range/Units 14:24 15:36 16:59 RBC (4.30-5.90) m/uL Hgb (13.0-17.5) gm/dL Hct (39.0-53.0) % RDW (11.5-15.5) % Plt Count (150-450) k/uL PT (9.0-12.0) sec Chloride (98-107) mmol/L Glucose (74-99) mg/dL POC Glucose (mg/dL) 209 H 208 H 134 H (75-99) mg/dL Calcium (8.4-10.2) mg/dL AST (17-59) U/L ALT (21-72) U/L Total Protein (6.3-8.2) g/dL Albumin (3.5-5.0) g/dL 09/04/16 09/04/16 09/04/16 Range/Units 18:05 19:02 22:34 RBC (4.30-5.90) m/uL Hgb (13.0-17.5) gm/dL Hct (39.0-53.0) % RDW (11.5-15.5) % Plt Count (150-450) k/uL PT (9.0-12.0) sec Chloride (98-107) mmol/L Glucose (74-99) mg/dL POC Glucose (mg/dL) 106 H 236 H 153 H (75-99) mg/dL Calcium (8.4-10.2) mg/dL AST (17-59) U/L ALT (21-72) U/L Total Protein (6.3-8.2) g/dL Albumin (3.5-5.0) g/dL 09/05/16 09/05/16 09/05/16 Range/Units 02:20 04:30 04:30 RBC 2.66 L (4.30-5.90) m/uL Hgb 7.7 L (13.0-17.5) gm/dL Hct 24.5 L (39.0-53.0) % RDW 16.0 H (11.5-15.5) % Plt Count 97 L (150-450) k/uL PT (9.0-12.0) sec Chloride 108 H (98-107) mmol/L Glucose 134 H (74-99) mg/dL POC Glucose (mg/dL) 140 H (75-99) mg/dL Calcium 7.9 L (8.4-10.2) mg/dL AST 150 H (17-59) U/L ALT 93 H (21-72) U/L Total Protein 4.5 L (6.3-8.2) g/dL Albumin 2.7 L (3.5-5.0) g/dL 09/05/16 09/05/16 Range/Units 04:30 07:47 RBC (4.30-5.90) m/uL Hgb (13.0-17.5) gm/dL Hct (39.0-53.0) % RDW (11.5-15.5) % Plt Count (150-450) k/uL PT 13.2 H (9.0-12.0) sec Chloride (98-107) mmol/L Glucose (74-99) mg/dL POC Glucose (mg/dL) 146 H (75-99) mg/dL Calcium (8.4-10.2) mg/dL AST (17-59) U/L ALT (21-72) U/L Total Protein (6.3-8.2) g/dL Albumin (3.5-5.0) g/dL - Imaging and Cardiology Chest x-ray: report reviewed, image reviewed Assessment and Plan (1) Coronary artery disease Status: Acute (2) Diabetes Status: Acute (3) Hypertension Status: Acute (4) History of non-Hodgkin's lymphoma Status: Acute (5) Hyperlipemia Status: Acute Plan: 1. Continue aspirin, subcu heparin. Add Plavix 75 mg daily. 2. Increase Lopressor to 50 mg by mouth twice a day. Will consider adding Tommy inhibitor later today. 3. DC Ron. LOYDA Jackson 4. Wean O2 as tolerated. Encourage incentive spirometry. 5. Increase activity. Ambulate in hallway. Physical therapy to follow. 6. Will place [facility]. Hopefully will DC tomorrow. 7. GI/DVT prophylaxis. 8. Insulin/diabetic management per primary service. 9. More recommendations as patient progresses. Time with Patient: Greater than 30
[2016-09-05] MEDS: CHOLECALCIFEROL 1,000 UNIT TAB PO SCH (11:31)
[2016-09-05] MEDS: CLOPIDOGREL 75 MG TAB PO SCH (11:31)
[2016-09-05] MEDS: MULTIVITAMINS, THERA 1 EACH TAB PO SCH (11:31)
[2016-09-05] MEDS: CLEVIDIPINE BUTYRATE 25 MG in EMPTY BAG 1 BAG IV SCH (15:34)
[2016-09-05 17:38] LABS: Glucose,Whole Blood 186 mg/dL (75-99)
[2016-09-05] MEDS: INSULIN LISPRO (humaLOG) 300 UNIT/3 ML VIAL SQ SCH (17:38)
[2016-09-05] MEDS ORDERED: HYDROcodone/APAP 5-325MG 1 EACH TAB ONE (21:30)
[2016-09-05] MEDS ORDERED: SENNOSIDES-DOCUSATE SODIUM 1 EACH TAB PO ONE (21:30)
[2016-09-05] MEDS ORDERED: METOPROLOL TARTRATE 50 MG TAB ONE (21:30)
[2016-09-05 23:05] LABS: Glucose,Whole Blood 192 mg/dL (75-99)
[2016-09-06] MEDS ORDERED: HEPARIN SODIUM,PORCINE 5,000 UNIT/ML 1 ML VIAL ONE
[2016-09-06] MEDS: INSULIN NPH 300 UNIT/3 ML VIAL SQ SCH ×2 (03:17→21:32)
[2016-09-06] MEDS: MUPIROCIN 2% OINT 22 GM TUBE NASAL SCH ×3 (03:17→21:32)
[2016-09-06] MEDS: METOPROLOL TARTRATE 50 MG TAB PO SCH ×3 (03:17→21:32)
[2016-09-06] MEDS: SENNOSIDES-DOCUSATE SODIUM 1 EACH TAB PO SCH ×2 (03:17→21:31)
[2016-09-06] MEDS: HEPARIN SODIUM,PORCINE 5,000 UNIT/ML 1 ML VIAL SQ SCH ×3 (03:17→16:34)
[2016-09-06 04:09] LABS: Glucose,Whole Blood 132 mg/dL (75-99)
[2016-09-06 04:18] LABS: ABG Base Excess -5.7 mmol/L; ABG HCO3 19 mmol/L (21-25); ABG Oxygen Saturation 99.9 % (94-97); ABG PCO2 35 mmHg (35-45); ABG PH 7.35 (7.35-7.45); ABG PO2 326 mmHg (83-108); ABG TCO2 20 mmol/L (19-24)
[2016-09-06 04:19] LABS: ABG HCO3 18 mmol/L (21-25); ABG PCO2 38 mmHg (35-45); ABG PH 7.31 (7.35-7.45); ABG PO2 248 mmHg (83-108); ABG TCO2 19 mmol/L (19-24)
[2016-09-06 04:20] LABS: ABG HCO3 20 mmol/L (21-25); ABG PCO2 40 mmHg (35-45); ABG PH 7.31 (7.35-7.45); ABG PO2 240 mmHg (83-108); ABG TCO2 21 mmol/L (19-24)
[2016-09-06 04:20] LABS: ABG Base Excess -6.9 mmol/L; ABG Oxygen Saturation 99.8 % (94-97)
[2016-09-06 04:21] LABS: ABG Base Excess -5.5 mmol/L; ABG Oxygen Saturation 99.8 % (94-97)
[2016-09-06 04:21] LABS: ABG HCO3 22 mmol/L (21-25); ABG PCO2 46 mmHg (35-45); ABG PO2 207 mmHg (83-108); ABG TCO2 23 mmol/L (19-24)
[2016-09-06 04:22] LABS: ABG Base Excess -3.9 mmol/L; ABG Oxygen Saturation 99.6 % (94-97)
[2016-09-06 04:23] LABS: ABG Base Excess -1.4 mmol/L; ABG HCO3 24 mmol/L (21-25); ABG Oxygen Saturation 99.8 % (94-97); ABG PCO2 48 mmHg (35-45); ABG PH 7.32 (7.35-7.45); ABG PO2 230 mmHg (83-108); ABG TCO2 26 mmol/L (19-24)
[2016-09-06 04:25] LABS: ABG Base Excess -2.3 mmol/L; ABG HCO3 22 mmol/L (21-25); ABG Oxygen Saturation 99.9 % (94-97); ABG PCO2 40 mmHg (35-45); ABG PH 7.37 (7.35-7.45); ABG PO2 299 mmHg (83-108); ABG TCO2 24 mmol/L (19-24)
[2016-09-06 04:28] LABS: ABG HCO3 21 mmol/L (21-25); ABG Oxygen Saturation 99.3 % (94-97); ABG PCO2 36 mmHg (35-45); ABG PH 7.38 (7.35-7.45); ABG PO2 147 mmHg (83-108); ABG TCO2 22 mmol/L (19-24)
[2016-09-06] MEDS: HYDROcodone/APAP 5-325MG 1 EACH TAB PO PRN ×2 (04:40→21:30)
[2016-09-06 07:00] LABS: Basophils % (A) 0 %; CH 28.8; CHCM 31.5; Eosinophils # (A) 0.2 k/uL (0-0.7); Eosinophils % (A) 3 %; HCT 26.3 % (39.0-53.0); HDW 2.82; HGB 8.1 gm/dL (13.0-17.5); Hypochromasia Slight; Luc # (Auto) 0.15; Luc % (Auto) 2; Lymphocytes # (A) 0.8 k/uL (1.0-4.8); Lymphocytes % (A) 11 %; MCH 28.4 pg (25.0-35.0); MCHC 30.9 g/dL (31.0-37.0); MCV 92.1 fL (80.0-100.0); Mean Platelet Volume 7.8; Monocytes # (A) 0.4 k/uL (0-1.0); Monocytes % (A) 5 %; Neutrophils # (A) 6.1 k/uL (1.3-7.7); Neutrophils % (A) 79 %; RBC 2.86 m/uL (4.30-5.90); RDW 15.8 % (11.5-15.5); WBC 7.8 k/uL (3.8-10.6); WBC (Perox) 7.97
--- NOTE | 2016-09-06 07:06 | XR ---
EXAMINATION TYPE: XR chest 1V portable DATE OF EXAM: 09/06/2016 6:58 AM COMPARISON: NONE HISTORY: Postop TECHNIQUE: Single frontal view of the chest is obtained. FINDINGS: SG catheter is removed, mediastinal drains and chest tubes are stable. Post operative harvey ges of CABG. Sided pneumothorax is essentially unchanged. Scattered Pleural-parenchymal opacities may reflect atelectasis. The heart is not enlarged. IMPRESSION: 1. Stable right-sided pneumothorax. 2. Stable scattered pleural parenchymal opacities.
[2016-09-06 07:14] LABS: INR 1.1 (<1.1)
[2016-09-06 07:26] LABS: Ionized Calcium 5.1 mg/dL (4.5-5.3)
[2016-09-06 07:46] LABS: ALT 72 U/L (21-72); AST 104 U/L (17-59); Alkaline Phosphatase 135 U/L (38-126); Anion Gap 7 mmol/L; Blood Urea Nitrogen 20 mg/dL (9-20); Calcium 8.3 mg/dL (8.4-10.2); Carbon Dioxide 25 mmol/L (22-30); Chloride 106 mmol/L (98-107); Glucose 132 mg/dL (74-99); Magnesium 2.1 mg/dL (1.6-2.3); Non-African American GFR(MDRD) >60 (>60 ml/min/1.73 sqM); Potassium 3.9 mmol/L (3.5-5.1); Sodium 138 mmol/L (137-145); Total Bilirubin 0.9 mg/dL (0.2-1.3); Total Protein 4.7 g/dL (6.3-8.2)
[2016-09-06] MEDS ORDERED: Potassium Replacement Protocol 1 EACH MISC MISCELLANE PRN (08:05)
--- NOTE | 2016-09-06 08:40 | P.PN ---
Subjective Principal diagnosis: Coronary artery disease. POD #3 coronary artery bypass grafting 4 vessels (left internal mammary artery to the left anterior descending artery, saphenous vein graft to diagonal artery 1, saphenous vein graft to diagonal artery 2, saphenous vein graft to posterior descending artery). Endoscopic vein harvest left greater saphenous vein. Epi- aortic ultrasound. Transesophageal echocardiogram. Patient currently sitting up in a recliner in no apparent distress. Eating breakfast. No issues overnight. Orders placed to transfer to [facility]. selective care yesterday, no beds available at this time. Objective - Vital Signs Vital signs: Vital Signs Temp 98.3 F 09/06/16 04:00 Pulse 91 09/06/16 07:00 Resp 14 09/06/16 07:00 BP 160/82 09/06/16 06:00 Pulse Ox 100 09/06/16 05:00 Intake & Output 09/05/16 09/06/16 09/06/16 18:59 06:59 18:59 Intake Total 737.725 220 20 Output Total 435 1025 70 Balance 302.725 -805 -50 Weight 91.8 kg 92.7 kg Intake: IV 463 220 20 Lactated Ringers 1,000 ml 400 220 20 @ 20 mls/hr IV .Q24H AMANDA Rx#:[id number] pressure bag 63 Intake, IV Titration 54.725 Amount Nitroglycerin-D5w Pmx 50 54.725 mg In Dextrose/Water 1 250ml.bag @ 5 MCG/MIN 1.5 mls/hr IV .Q24H AMANDA Rx#: [id number] Oral 220 Output: Chest Tube Drainage 200 200 70 Mediastinal 100 110 40 Pleural Catheter Left 100 90 30 Urine 235 825 Other: Voiding Method Indwelling Catheter Urinal # Bowel Movements 0 0 ABP, PAP, CO, CI - Last Documented Arterial Blood Pressure 146/61 Pulmonary Artery Pressure 29/13 Cardiac Output 5.5 Cardiac Index 2.6 - Constitutional General appearance: Present: cooperative, no acute distress - Respiratory Details: Lungs sounds diminished bilaterally. Respirations even, nonlabored. Currently on 2 L nasal cannula with oxygen saturation 99%. Able to achieve 750 mL on his incentive spirometry. Mediastinal chest tube to -30 cm wall suction, drained 40 mL serosanguineous fluid overnight, 350 mL in the last 24 hours, positive minimal air leak with coughing. Left pleural chest tube to -20 cm wall suction , drained 40 mL serosanguineous fluid overnight, 200 mL in the last 24 hours, no air leak present. - Cardiovascular Details: S1, S2 present. Regular rate and rhythm, normal sinus rhythm on telemetry. Sternum stable. A/V epicardial pacemaker wires present but grounded. Heart hugger in place with patient demonstrating appropriate use. Teds/SCDs present. - Gastrointestinal Gastrointestinal Comment(s): Abdomen soft, nontender, nondistended. Active bowel sounds 4 quadrants. Tolerating diet. No bowel movement since surgery. Positive flatus. - Genitourinary Genitourinary Comment(s): Continues to void clear, yellow urine. - Integumentary Integumentary Comment(s): Anterior chest incision well approximated covered with dry intact dressing. - Musculoskeletal Musculoskeletal: Present: gait normal, strength equal bilaterally - Psychiatric Psychiatric: Present: A&O x's 3, appropriate affect, intact judgment & insight - Allied health notes Allied health notes reviewed: nursing - Labs CBC & Chem 7: 09/06/16 06:28 09/06/16 06:28 Labs: Abnormal Lab Results - Last 24 Hours (Table) 09/03/16 09/03/16 09/03/16 Range/Units 09:19 10:16 11:21 RBC (4.30-5.90) m/uL Hgb (13.0-17.5) gm/dL Hct (39.0-53.0) % MCHC (31.0-37.0) g/dL RDW (11.5-15.5) % Plt Count (150-450) k/uL Lymphocytes # (1.0-4.8) k/uL ABG pH 7.31 L 7.31 L (7.35-7.45) ABG pCO2 (35-45) mmHg ABG pO2 326 H 248 H 240 H (83-108) mmHg ABG HCO3 19 L 18 L 20 L (21-25) mmol/L ABG Total CO2 (19-24) mmol/L ABG O2 Saturation 99.9 H 99.8 H 99.8 H (94-97) % ABG Hematocrit 32 L 31 L 25 L (34.0-46.0) % ABG Sodium (135-146) mmol/L ABG Potassium 5.2 H (3.4-4.5) mmol/L Glucose (74-99) mg/dL POC Glucose (mg/dL) (75-99) mg/dL Calcium (8.4-10.2) mg/dL AST (17-59) U/L Alkaline Phosphatase (38-126) U/L Total Protein (6.3-8.2) g/dL Albumin (3.5-5.0) g/dL Arterial Blood Potassium 5.2 H (3.4-4.5) mmol/L 09/03/16 09/03/16 09/03/16 Range/Units 11:55 12:27 13:14 RBC (4.30-5.90) m/uL Hgb (13.0-17.5) gm/dL Hct (39.0-53.0) % MCHC (31.0-37.0) g/dL RDW (11.5-15.5) % Plt Count (150-450) k/uL Lymphocytes # (1.0-4.8) k/uL ABG pH 7.30 L 7.32 L (7.35-7.45) ABG pCO2 46 H 48 H (35-45) mmHg ABG pO2 207 H 230 H 299 H (83-108) mmHg ABG HCO3 (21-25) mmol/L ABG Total CO2 26 H (19-24) mmol/L ABG O2 Saturation 99.6 H 99.8 H 99.9 H (94-97) % ABG Hematocrit 24 L 23 L 22 L (34.0-46.0) % ABG Sodium (135-146) mmol/L ABG Potassium 4.9 H 4.8 H 4.9 H (3.4-4.5) mmol/L Glucose (74-99) mg/dL POC Glucose (mg/dL) (75-99) mg/dL Calcium (8.4-10.2) mg/dL AST (17-59) U/L Alkaline Phosphatase (38-126) U/L Total Protein (6.3-8.2) g/dL Albumin (3.5-5.0) g/dL Arterial Blood Potassium 4.9 H 4.8 H 4.9 H (3.4-4.5) mmol/L 09/03/16 09/05/16 09/05/16 Range/Units 14:53 17:36 20:46 RBC (4.30-5.90) m/uL Hgb (13.0-17.5) gm/dL Hct (39.0-53.0) % MCHC (31.0-37.0) g/dL RDW (11.5-15.5) % Plt Count (150-450) k/uL Lymphocytes # (1.0-4.8) k/uL ABG pH (7.35-7.45) ABG pCO2 (35-45) mmHg ABG pO2 147 H (83-108) mmHg ABG HCO3 (21-25) mmol/L ABG Total CO2 (19-24) mmol/L ABG O2 Saturation 99.3 H (94-97) % ABG Hematocrit 26 L (34.0-46.0) % ABG Sodium 148 H (135-146) mmol/L ABG Potassium (3.4-4.5) mmol/L Glucose (74-99) mg/dL POC Glucose (mg/dL) 186 H 192 H (75-99) mg/dL Calcium (8.4-10.2) mg/dL AST (17-59) U/L Alkaline Phosphatase (38-126) U/L Total Protein (6.3-8.2) g/dL Albumin (3.5-5.0) g/dL Arterial Blood Potassium (3.4-4.5) mmol/L 09/06/16 09/06/16 09/06/16 Range/Units 04:07 06:28 06:28 RBC 2.86 L (4.30-5.90) m/uL Hgb 8.1 L (13.0-17.5) gm/dL Hct 26.3 L (39.0-53.0) % MCHC 30.9 L (31.0-37.0) g/dL RDW 15.8 H (11.5-15.5) % Plt Count 114 L (150-450) k/uL Lymphocytes # 0.8 L (1.0-4.8) k/uL ABG pH (7.35-7.45) ABG pCO2 (35-45) mmHg ABG pO2 (83-108) mmHg ABG HCO3 (21-25) mmol/L ABG Total CO2 (19-24) mmol/L ABG O2 Saturation (94-97) % ABG Hematocrit (34.0-46.0) % ABG Sodium (135-146) mmol/L ABG Potassium (3.4-4.5) mmol/L Glucose 132 H (74-99) mg/dL POC Glucose (mg/dL) 132 H (75-99) mg/dL Calcium 8.3 L (8.4-10.2) mg/dL AST 104 H (17-59) U/L Alkaline Phosphatase 135 H (38-126) U/L Total Protein 4.7 L (6.3-8.2) g/dL Albumin 2.7 L (3.5-5.0) g/dL Arterial Blood Potassium (3.4-4.5) mmol/L - Imaging and Cardiology Chest x-ray: report reviewed, image reviewed Assessment and Plan (1) Coronary artery disease Status: Acute (2) Diabetes Status: Acute (3) Hypertension Status: Acute (4) History of non-Hodgkin's lymphoma Status: Acute (5) Hyperlipemia Status: Acute Plan: 1. Continue aspirin, subcu heparin, Plavix, Lopressor. 2. Will add AMIRA inhibitor today. Continue to hold statin until liver enzymes have returned to normal. 3. Wean O2 as tolerated. Encourage incentive spirometry. 4. Increase activity. Ambulate in hallway. Physical therapy to follow. 5. Will place mediastinal chest tube to [facility]. 6. GI/DVT prophylaxis. 7. Insulin/diabetic management per primary service. 8. Transfer to 6 E. selective care when bed available Time with Patient: Greater than 30
[2016-09-06] MEDS: IPRATROPIUM-ALBUTEROL 3 ML NEB INHALATION SCH ×4 (08:56→22:00)
[2016-09-06] MEDS ORDERED: POTASSIUM CHLORIDE ER 20 MEQ TAB.ER PO SCH (09:00)
[2016-09-06] MEDS: CLOPIDOGREL 75 MG TAB PO SCH (10:38)
[2016-09-06] MEDS: ASPIRIN 325 MG TAB PO SCH (10:38)
[2016-09-06 10:39] LABS: Glucose,Whole Blood 208 mg/dL (75-99)
[2016-09-06] MEDS: PANTOPRAZOLE 40 MG TABLET PO SCH (10:39)
--- NOTE | 2016-09-06 10:42 | PN ---
I am covering for Dr. Mccarty. This 71-year-old gentleman was admitted with coronary artery disease, CABG is improving significantly. Blood sugars are better controlled. The patient is currently on a protocol and off insulin drip and no chest, no palpitation, no fever. On exam, alert and oriented x 3. Pulse 83, blood pressure 130/62, respiratory rate 16, temperature 97, pulse ox 97% on 2 liters. HEENT: Conjunctivae normal. NECK: No jugular venous distention. CARDIOVASCULAR SYSTEM: S1, S2 muffled. RESPIRATORY SYSTEM: Breath sounds diminished at the bases. A few scattered rhonchi, no crackles. ABDOMEN: Soft. NERVOUS SYSTEM: No focal deficit. LABS: Hemoglobin 7.7, albumin is 2.7. ASSESSMENT: 1. Coronary artery disease status coronary artery bypass grafting x4. 2. Diabetes mellitus type 2 off insulin drip. 3. Anemia. 4. Thrombocytopenia, mild. 5. History of coronary artery disease. 6. History of congestive heart failure. 7. History of deep venous thrombosis. 8. History of gastroesophageal reflux disease. 9. Hypertension. 10. Hyperlipidemia. 11. History of myocardial infarction. 12. History of sleep apnea. 13. History of non-Hodgkin's lymphoma. 14. History of pneumonitis. 15. History of CPAP. 16. History of deep venous thrombosis. 17. History of coronary artery disease and stent. 18. History of hernia repair. 19. Increased AST, ALT. 20. Full code. Recommendations and discussion: In this 71-year-old gentleman who presented with multiple complex medical issues, we will monitor the patient closely, continue the current medications, continue with symptomatic treatment. Otherwise, at this time I recommend to continue with current medications, monitor blood sugars closely, incentive spirometry and DVT prophylaxis. Further recommendations to follow. MTDD
[2016-09-06] MEDS: INSULN ASP PRT/INSULIN ASPART 100 UNIT/ML 10 ML VIAL SQ SCH (10:49)
--- NOTE | 2016-09-06 11:02 | PN ---
Mr. Ibrahim is a known case of ischemic heart disease, status post aortocoronary bypass surgery. The patient had WHITNEY to the LAD, vein graft to the diagonal, vein graft to the posterior descending and also vein graft to the second diagonal. The patient seems to be doing very well. His vital signs are stable. Blood pressure is about 150/80, pulse rate is 80, respirations 20, afebrile. The patient is drinking and eating well. He is using incentive spirometry. He does not complain of significant chest pain. He is waiting to be transferred to telemetry unit. His lab values showed a hemoglobin of 7.7. Electrolytes are normal. His AST and ALT are slightly elevated. His BUN and creatinine are within normal limits. Clinically, lungs show diminished breath sounds at bases. Heart S1 and S2 heard, regular. No significant murmurs heard. FINAL IMPRESSION: 1. Status post aortocoronary bypass surgery, clinically doing well 2. Anemia. 3. Thrombocytopenia. PLAN: Increase activity. Continue current medical therapy.
[2016-09-06] MEDS: MAGNESIUM HYDROXIDE 2,400 MG/10 ML CUP PO PRN (11:47)
[2016-09-06] MEDS ORDERED: LISINOPRIL 10 MG TAB PO SCH (12:00)
[2016-09-06 12:21] LABS: Hemoglobin A1C 6.8 % (4.2-6.1)
[2016-09-06 12:28] LABS: Glucose,Whole Blood 154 mg/dL (75-99)
[2016-09-06] MEDS: CHOLECALCIFEROL 1,000 UNIT TAB PO SCH (12:29)
[2016-09-06] MEDS: MULTIVITAMINS, THERA 1 EACH TAB PO SCH (12:30)
[2016-09-06 17:11] LABS: Glucose,Whole Blood 93 mg/dL (75-99)
--- NOTE | 2016-09-06 17:15 | PN ---
This is a 71-year-old gentleman who is postop day number 3 status post bypass grafting. The patient had a 3 vessel bypass. He is doing relatively well. He has a history of heart failure, diabetes, GERD, hyperlipidemia, non-Hodgkin's lymphoma and a previous history of stent placement for CAD. The patient is stable. A chest x-ray showing a small right pneumothorax. Clinically he is doing well. He is only on O2 at 2 liters and LR at 20 mL an hour. Vital signs are reviewed. Temperature 98.3, heart rate 89, respiratory rate 14, blood pressure 160/82, mean 108, saturations are 100%. Appears in no acute distress. HEENT examination is grossly unremarkable. Mucous membranes are moist. No oral lesions. Neck is supple. Full range of motion. No adenopathy or thyromegaly. Cardiovascular examination reveals regular rhythm and rate. S1, S2 normal. No S3, S4 or murmur. Lungs reveal a few scattered rhonchi. No wheezes or crackles. Abdomen is soft. Bowel sounds are heard. No masses. Extremities are intact. No cyanosis, clubbing or edema. Skin is without rash. Neurological examination nonfocal. White count 7.8, hemoglobin 8.1, hematocrit 26.3, platelet count 114,000. PT, INR 11 and 1.1. Sodium, potassium, chloride, and CO2 all normal. BUN and creatinine were normal. The rest of the labs look pretty good. Micro us negative. Chest x-ray has already been evaluated. Medications are reviewed. ASSESSMENT: 1. Coronary artery disease, status post bypass grafting, postoperative day number three status post three-vessel bypass. 2. History of congestive heart failure. 3. History of diabetes mellitus. 4. Gastroesophageal reflux disease. 5. Hyperlipidemia. 6. History of non-Hodgkin's lymphoma. 7. Previous history of stent placement for coronary artery disease. PLAN: The patient is doing well. No additional recommendations are made. Will continue with incentive spirometry, deep breathing, coughing and clearing of secretions. He continues to improve. A bit more perky today.
[2016-09-06] MEDS: INSULIN LISPRO (humaLOG) 300 UNIT/3 ML VIAL SQ SCH (17:42)
[2016-09-06 21:18] LABS: Glucose,Whole Blood 137 mg/dL (75-99)
[2016-09-07] MEDS: HEPARIN SODIUM,PORCINE 5,000 UNIT/ML 1 ML VIAL SQ SCH ×4 (00:06→23:37)
[2016-09-07 02:32] LABS: Glucose,Whole Blood 119 mg/dL (75-99)
[2016-09-07 06:58] LABS: Glucose,Whole Blood 109 mg/dL (75-99)
[2016-09-07] MEDS: PANTOPRAZOLE 40 MG TABLET PO SCH (06:58)
[2016-09-07] MEDS: HYDROcodone/APAP 5-325MG 1 EACH TAB PO PRN ×2 (06:59→21:39)
[2016-09-07 07:37] LABS: Basophils % (A) 0 %; CH 28.6; CHCM 31.1; Eosinophils # (A) 0.1 k/uL (0-0.7); Eosinophils % (A) 3 %; HCT 24.9 % (39.0-53.0); HDW 2.83; HGB 7.7 gm/dL (13.0-17.5); Hypochromasia Slight; Luc # (Auto) 0.14; Luc % (Auto) 3; Lymphocytes % (A) 18 %; MCH 28.7 pg (25.0-35.0); MCV 92.6 fL (80.0-100.0); Mean Platelet Volume 7.5; Monocytes # (A) 0.3 k/uL (0-1.0); Monocytes % (A) 5 %; Neutrophils # (A) 3.9 k/uL (1.3-7.7); Neutrophils % (A) 72 %; RBC 2.69 m/uL (4.30-5.90); RDW 15.9 % (11.5-15.5); WBC 5.4 k/uL (3.8-10.6); WBC (Perox) 5.47
[2016-09-07] MEDS: INSULN ASP PRT/INSULIN ASPART 100 UNIT/ML 10 ML VIAL SQ SCH (07:47)
[2016-09-07 07:59] LABS: ALT 67 U/L (21-72); AST 85 U/L (17-59); Alkaline Phosphatase 163 U/L (38-126); Anion Gap 5 mmol/L; Blood Urea Nitrogen 20 mg/dL (9-20); Calcium 8.3 mg/dL (8.4-10.2); Carbon Dioxide 29 mmol/L (22-30); Chloride 107 mmol/L (98-107); Glucose 102 mg/dL (74-99); Non-African American GFR(MDRD) >60 (>60 ml/min/1.73 sqM); Potassium 4.4 mmol/L (3.5-5.1); Sodium 141 mmol/L (137-145); Total Bilirubin 0.6 mg/dL (0.2-1.3); Total Protein 4.6 g/dL (6.3-8.2)
[2016-09-07 08:04] LABS: Ionized Calcium 5.1 mg/dL (4.5-5.3)
--- NOTE | 2016-09-07 08:17 | XR ---
EXAMINATION TYPE: XR chest 1V portable DATE OF EXAM: 09/07/2016 7:19 AM Comparison: 09/06/2016 Clinical History: 71-year-old male post op cardiac surgery Findings: Median sternotomy wires are present with post-CABG clips in the mediastinum. Mediastinal drain remain s in place. Heart remains upper limits of normal in size with small left pleural effusion and patchy retrocardiac atelectasis. Pulmonary vasculature within normal limits. Small right apical pneumothorax persists, estimated at 10%. Left chest tube removed in the interval. Impression: 1. Small right apical pneumothorax, estimated at 10% persists. 2. Small left pleural effusion with postsurgical left basilar atelectasis is similar.
[2016-09-07] MEDS: CLOPIDOGREL 75 MG TAB PO SCH (08:33)
[2016-09-07] MEDS: METOPROLOL TARTRATE 50 MG TAB PO SCH (08:33)
[2016-09-07] MEDS: ASPIRIN 325 MG TAB PO SCH (08:33)
[2016-09-07] MEDS: IPRATROPIUM-ALBUTEROL 3 ML NEB INHALATION SCH ×4 (09:03→20:54)
--- NOTE | 2016-09-07 09:07 | PN ---
I am covering for Dr. Mccarty. This is a 71-year-old gentleman admitted with CAD, CABG is improving significantly, no chest pain, no palpitation. Blood sugars have been controlled. No fever. No cough. On exam, alert and oriented x3. Pulse 90, blood pressure is 122/60, respiration 32, temperature is normal, pulse ox 97% on 2 L. HEENT: Conjunctivae normal. NECK: No jugular venous distension. CARDIOVASCULAR SYSTEM: S1, S2. RESPIRATORY: Breath sounds diminished at the bases, a few scattered rhonchi. ABDOMEN: Soft, nontender. LEGS: No edema, no swelling. NERVOUS SYSTEM: No focal deficits. LABS: Hemoglobin 8.1. White count is 7.8, platelets 114, albumin is 2.7. ASSESSMENT: 1. Coronary artery disease, coronary artery bypass grafting x4. 2. Diabetes mellitus type 2, off insulin drip on 3 short protocol. 3. Anemia. 4. Thrombocytopenia, mild. 5. History of coronary artery disease. 6. History of congestive heart failure. 7. History of deep venous thrombosis. 8. History of gastrointestinal disease. 9. Hypertension. 10. Hyperlipidemia. 11. History of myocardial infarction. 12. History of sleep apnea. 13. History of non-Hodgkin's lymphoma. 14. History of pneumonitis. 15. History of CPAP. 16. History of deep venous thrombosis. 17. History of coronary artery disease, stent. 18. History of hernia repair. 19. Increased AST, ALT. 20. FULL CODE. RECOMMENDATION: Recommend to continue with current medication. Continue with the monitoring and symptomatic treatment. Otherwise, at this time I would recommend monitor the blood sugars closely. Closely monitored with Cardiothoracic Surgery, Dr. Mccarty will follow. Continue the rest of the medications including DVT prophylaxis.
[2016-09-07] MEDS: MAGNESIUM HYDROXIDE 2,400 MG/10 ML CUP PO PRN (10:34)
--- NOTE | 2016-09-07 10:38 | P.PN ---
<Irene Lane - Last Filed: 09/07/16 10:38> Subjective Principal diagnosis: Coronary artery disease. POD #4 coronary artery bypass grafting 4 vessels (left internal mammary artery to the left anterior descending artery, saphenous vein graft to diagonal artery 1, saphenous vein graft to diagonal artery 2, saphenous vein graft to posterior descending artery). Endoscopic vein harvest left greater saphenous vein. Epi- aortic ultrasound. Transesophageal echocardiogram. Patient currently sitting up in a recliner in no apparent distress. No issues overnight. Transfer to [address] [place] [address] yesterday. Objective - Vital Signs Vital signs: Vital Signs Temp 97.1 F L 09/07/16 04:00 Pulse 96 09/07/16 04:00 Resp 18 09/07/16 04:00 BP 111/61 09/07/16 04:00 Pulse Ox 96 09/07/16 04:00 Intake & Output 09/06/16 09/07/16 09/07/16 18:59 06:59 18:59 Intake Total 560 Output Total 1070 60 Balance -510 -60 Intake: IV 140 Lactated Ringers 1,000 ml 140 @ 20 mls/hr IV .Q24H [facility] Rx#:[id number] Oral 420 Output: Chest Tube Drainage 120 60 Mediastinal 60 60 Pleural Catheter Left 60 Urine 950 Other: Voiding Method Urinal Toilet Urinal # Bowel Movements 0 ABP, PAP, CO, CI - Last Documented Arterial Blood Pressure 146/61 Pulmonary Artery Pressure 29/13 Cardiac Output 5.5 Cardiac Index 2.6 - Constitutional General appearance: Present: cooperative, no acute distress - Respiratory Details: Lungs sounds diminished bilaterally. Respirations even, nonlabored. Currently on 2 L nasal cannula with oxygen saturation 96%. Mediastinal chest tube to waterseal, drained 70 mL serous fluid overnight, 400 mL in the last 4 hours, minimal air leak present. - Cardiovascular Details: S1, S2 present. Regular rate and rhythm, normal sinus rhythm on telemetry. Sternum stable. Heart hugger in place with patient demonstrating appropriate use. Trace left lower extremity edema present. A/V epicardial pacemaker wires present but grounded. Teds/SCDs present. - Gastrointestinal Gastrointestinal Comment(s): Abdomen soft, nontender, nondistended. Active bowel sounds 4 quadrants. Tolerating diet. - Genitourinary Genitourinary Comment(s): Continues to void clear, yellow urine. - Integumentary Integumentary Comment(s): Anterior chest wall incision well approximated and covered with dry intact dressing. Left lower extremity EVH site well approximated. - Musculoskeletal Musculoskeletal: Present: gait normal, strength equal bilaterally - Psychiatric Psychiatric: Present: A&O x's 3, appropriate affect, intact judgment & insight - Allied health notes Allied health notes reviewed: nursing - Labs CBC & Chem 7: 09/06/16 06:28 09/06/16 06:28 Labs: Abnormal Lab Results - Last 24 Hours (Table) 09/05/16 09/06/16 09/06/16 Range/Units 04:30 06:28 10:36 Glucose 132 H (74-99) mg/dL POC Glucose (mg/dL) 208 H (75-99) mg/dL Hemoglobin A1c 6.8 H (4.2-6.1) % Calcium 8.3 L (8.4-10.2) mg/dL AST 104 H (17-59) U/L Alkaline Phosphatase 135 H (38-126) U/L Total Protein 4.7 L (6.3-8.2) g/dL Albumin 2.7 L (3.5-5.0) g/dL 09/06/16 09/06/16 09/07/16 Range/Units 12:27 21:15 02:24 Glucose (74-99) mg/dL POC Glucose (mg/dL) 154 H 137 H 119 H (75-99) mg/dL Hemoglobin A1c (4.2-6.1) % Calcium (8.4-10.2) mg/dL AST (17-59) U/L Alkaline Phosphatase (38-126) U/L Total Protein (6.3-8.2) g/dL Albumin (3.5-5.0) g/dL 09/07/16 Range/Units 06:32 Glucose (74-99) mg/dL POC Glucose (mg/dL) 109 H (75-99) mg/dL Hemoglobin A1c (4.2-6.1) % Calcium (8.4-10.2) mg/dL AST (17-59) U/L Alkaline Phosphatase (38-126) U/L Total Protein (6.3-8.2) g/dL Albumin (3.5-5.0) g/dL - Imaging and Cardiology Chest x-ray: image reviewed Assessment and Plan (1) Coronary artery disease Status: Acute (2) Diabetes Status: Acute (3) Hypertension Status: Acute (4) History of non-Hodgkin's lymphoma Status: Acute (5) Hyperlipemia Status: Acute Plan: 1. Continue aspirin, subcu heparin, Plavix, Lopressor, lisinopril. 2. Continue to hold statin until liver enzymes have returned to normal. 3. Wean O2 as tolerated. Encourage incentive spirometry. 4. Increase activity. Ambulate in hallway. Physical therapy to follow. 5. Continue mediastinal chest tube to waterseal. 6. GI/DVT prophylaxis. 7. Insulin/diabetic management per primary service. 8. More recommendations as patient progresses. Time with Patient: Greater than 30 <Silas Tomlin - Last Filed: 09/07/16 10:57> Objective - Vital Signs Vital signs: Vital Signs Temp 98.9 F 09/07/16 08:00 Pulse 93 09/07/16 09:57 Resp 18 09/07/16 09:03 BP 129/61 09/07/16 09:57 Pulse Ox 96 09/07/16 09:57 Intake & Output 09/06/16 09/07/16 09/07/16 18:59 06:59 18:59 Intake Total 560 240 Output Total 1070 60 Balance -510 -60 240 Weight 97.3 kg Intake: IV 140 Lactated Ringers 1,000 ml 140 @ 20 mls/hr IV .Q24H [facility] Rx#:[id number] Oral 420 240 Output: Chest Tube Drainage 120 60 Mediastinal 60 60 Pleural Catheter Left 60 Urine 950 Other: Voiding Method Urinal Toilet Toilet Urinal Urinal # Bowel Movements 0 ABP, PAP, CO, CI - Last Documented Arterial Blood Pressure 146/61 Pulmonary Artery Pressure 29/13 Cardiac Output 5.5 Cardiac Index 2.6 - Labs CBC & Chem 7: 09/07/16 06:52 09/07/16 06:52 Labs: Abnormal Lab Results - Last 24 Hours (Table) 09/05/16 09/06/16 09/06/16 Range/Units 04:30 12:27 21:15 RBC (4.30-5.90) m/uL Hgb (13.0-17.5) gm/dL Hct (39.0-53.0) % RDW (11.5-15.5) % Plt Count (150-450) k/uL Glucose (74-99) mg/dL POC Glucose (mg/dL) 154 H 137 H (75-99) mg/dL Hemoglobin A1c 6.8 H (4.2-6.1) % Calcium (8.4-10.2) mg/dL AST (17-59) U/L Alkaline Phosphatase (38-126) U/L Total Protein (6.3-8.2) g/dL Albumin (3.5-5.0) g/dL 09/07/16 09/07/16 09/07/16 Range/Units 02:24 06:32 06:52 RBC 2.69 L (4.30-5.90) m/uL Hgb 7.7 L (13.0-17.5) gm/dL Hct 24.9 L (39.0-53.0) % RDW 15.9 H (11.5-15.5) % Plt Count 103 L (150-450) k/uL Glucose (74-99) mg/dL POC Glucose (mg/dL) 119 H 109 H (75-99) mg/dL Hemoglobin A1c (4.2-6.1) % Calcium (8.4-10.2) mg/dL AST (17-59) U/L Alkaline Phosphatase (38-126) U/L Total Protein (6.3-8.2) g/dL Albumin (3.5-5.0) g/dL 09/07/16 Range/Units 06:52 RBC (4.30-5.90) m/uL Hgb (13.0-17.5) gm/dL Hct (39.0-53.0) % RDW (11.5-15.5) % Plt Count (150-450) k/uL Glucose 102 H (74-99) mg/dL POC Glucose (mg/dL) (75-99) mg/dL Hemoglobin A1c (4.2-6.1) % Calcium 8.3 L (8.4-10.2) mg/dL AST 85 H (17-59) U/L Alkaline Phosphatase 163 H (38-126) U/L Total Protein 4.6 L (6.3-8.2) g/dL Albumin 2.5 L (3.5-5.0) g/dL Assessment and Plan Plan: The patient was seen and examined. I agree with the above assessment and plan. Overall he looks good. We will continue to wean his oxygen as tolerated. He still has two mediastinal chest tubes. There is no air leak noted this morning. His chest x-ray still reveals a small right apical space. We will keep the chest tubes to waterseal overnight. We will increase his beta aruna today. He will also be given a suppository to assist with bowel movements. He is ambulating in the hallway without difficulty. He will likely be discharged home within the next 24-48 hours.
[2016-09-07] MEDS ORDERED: METOPROLOL TARTRATE 25 MG TAB PO STA (10:56)
[2016-09-07 11:56] LABS: Glucose,Whole Blood 130 mg/dL (75-99)
[2016-09-07] MEDS: LISINOPRIL 5 MG TAB PO SCH (12:04)
[2016-09-07] MEDS: MULTIVITAMINS, THERA 1 EACH TAB PO SCH (12:04)
[2016-09-07] MEDS: CHOLECALCIFEROL 1,000 UNIT TAB PO SCH (12:05)
--- NOTE | 2016-09-07 12:33 | PN ---
Mr. Ibrahim is a 71-year-old gentleman who aortocoronary bypass surgery. The patient seems to be doing very well. He also has a history of diabetes, hyperlipidemia, non-Hodgkin's lymphoma, and also previous stent placement of the left anterior descending coronary artery. Patient tolerating activity a very well. He is using incentive spirometry. Vital signs showed a blood pressure of about 160/80, pulse rate is about 89, respirations are 14. Neck is supple. No JVD. HEART: S1 and S2 heard. Mild rub noted. No significant murmurs noted. Lungs show scattered rhonchi. Abdomen is soft. Extremities, no significant edema. Lab values showed hemoglobin of 8.1, platelet count is 114,000. BUN and creatinine are within normal limits. FINAL IMPRESSION: 1. Coronary artery disease, status post bypass surgery. 2. Congestive heart failure. 3. Diabetes mellitus. 4. History of previous stent placement. 5. Previous non-Hodgkin's lymphoma. The patient is being transferred to telemetry unit. Increase his activity. Continue with incentive spirometry. Patient is clinically progressing fairly well.
--- NOTE | 2016-09-07 14:58 | P.PN ---
Subjective Principal diagnosis: CABG This is a pleasant 71-year-old gentleman who is status post coronary artery bypass grafting surgery, he was seen and examined this morning, feeling well overall. Continues to have [address] Blood pressure this morning 129/60 with a heart rate in the 90s. Hemoglobin 7.7, platelet count 103, potassium 4.4, BUN 20, creatinine 0.8. Alk phos 163, AST 85, ALT 67, albumin 2.5, total protein 4.6. Patient is not currently on a statin, it appears that the statin was discontinued on the because of abnormal liver enzymes, this will need to be resumed. Objective - Vital Signs Vital signs: Vital Signs Temp 98.1 F 09/07/16 11:32 Pulse 86 09/07/16 11:32 Resp 18 09/07/16 11:32 BP 98/55 09/07/16 11:32 Pulse Ox 96 09/07/16 11:32 Intake & Output 09/06/16 09/07/16 09/07/16 18:59 06:59 18:59 Intake Total 560 660 Output Total 1070 60 550 Balance -510 -60 110 Weight 97.3 kg Intake: IV 140 Lactated Ringers 1,000 ml 140 @ 20 mls/hr IV .Q24H [facility] Rx#:[id number] Oral 420 660 Output: Chest Tube Drainage 120 60 50 Mediastinal 60 60 Pleural Catheter Left 60 50 Urine 950 500 Other: Voiding Method Urinal Toilet Toilet Urinal Urinal # Voids 1 # Bowel Movements 0 1 ABP, PAP, CO, CI - Last Documented Arterial Blood Pressure 146/61 Pulmonary Artery Pressure 29/13 Cardiac Output 5.5 Cardiac Index 2.6 - Exam PHYSICAL EXAMINATION: HEENT: Head is atraumatic, normocephalic. Pupils equal, round. Neck is supple. There is no elevated jugular venous pressure. HEART EXAMINATION: Heart S1, S2 normal. No murmur or gallop heard. CHEST EXAMINATION: Clear with diminished air entry to bilateral bases. Mediastinal chest tube in place to water seal. ABDOMEN: Soft, nontender. Bowel sounds are heard. No organomegaly noted. EXTREMITIES: 2+ peripheral pulses with trace evidence of peripheral edema and no calf tenderness noted. NEUROLOGIC patient is awake, alert and oriented -3. . - Labs CBC & Chem 7: 09/07/16 06:52 09/07/16 06:52 Labs: Abnormal Lab Results - Last 24 Hours (Table) 09/06/16 09/07/16 09/07/16 Range/Units 21:15 02:24 06:32 RBC (4.30-5.90) m/uL Hgb (13.0-17.5) gm/dL Hct (39.0-53.0) % RDW (11.5-15.5) % Plt Count (150-450) k/uL Glucose (74-99) mg/dL POC Glucose (mg/dL) 137 H 119 H 109 H (75-99) mg/dL Calcium (8.4-10.2) mg/dL AST (17-59) U/L Alkaline Phosphatase (38-126) U/L Total Protein (6.3-8.2) g/dL Albumin (3.5-5.0) g/dL 09/07/16 09/07/16 09/07/16 Range/Units 06:52 06:52 11:54 RBC 2.69 L (4.30-5.90) m/uL Hgb 7.7 L (13.0-17.5) gm/dL Hct 24.9 L (39.0-53.0) % RDW 15.9 H (11.5-15.5) % Plt Count 103 L (150-450) k/uL Glucose 102 H (74-99) mg/dL POC Glucose (mg/dL) 130 H (75-99) mg/dL Calcium 8.3 L (8.4-10.2) mg/dL AST 85 H (17-59) U/L Alkaline Phosphatase 163 H (38-126) U/L Total Protein 4.6 L (6.3-8.2) g/dL Albumin 2.5 L (3.5-5.0) g/dL Assessment and Plan (1) S/P CABG (coronary artery bypass graft) Status: Acute (2) Coronary artery disease Status: Acute (3) Diabetes Status: Acute (4) History of non-Hodgkin's lymphoma Status: Acute (5) Hypertension Status: Acute (6) Acute non-ST segment elevation myocardial infarction (STEMI) following previous myocardial infarction Status: Acute (7) Hyperlipemia Status: Acute Plan: From cardiology's perspective, we'll continue current medications. Patient has also been encouraged regarding the use of his incentive spirometry. He will also need to have his statin from resumed we will continue to monitor liver functions. DNP note has been reviewed, I agree with a documented findings and plan of care. Patient was seen and examined.
--- NOTE | 2016-09-07 15:48 | P.PN ---
Subjective Patient is a 71-year-old male admitted with coronary artery disease status post CABG. Patient is doing well. Sitting up in a chair. Denies chills , fevers, nausea, vomiting, shortness of breath, chest pain, or abdominal pain. Patient is tolerating diet. Patient reports flatus with no bowel movement. Patient has been up ambulating. Objective - Vital Signs Vital signs: Vital Signs Temp 98.1 F 09/07/16 11:32 Pulse 86 09/07/16 11:32 Resp 18 09/07/16 11:32 BP 98/55 09/07/16 11:32 Pulse Ox 96 09/07/16 11:32 Intake & Output 09/06/16 09/07/16 09/07/16 18:59 06:59 18:59 Intake Total 560 660 Output Total 1070 60 550 Balance -510 -60 110 Weight 97.3 kg Intake: IV 140 Lactated Ringers 1,000 ml 140 @ 20 mls/hr IV .Q24H [facility] Rx#:[id number] Oral 420 660 Output: Chest Tube Drainage 120 60 50 Mediastinal 60 60 Pleural Catheter Left 60 50 Urine 950 500 Other: Voiding Method Urinal Toilet Toilet Urinal Urinal # Voids 1 # Bowel Movements 0 1 ABP, PAP, CO, CI - Last Documented Arterial Blood Pressure 146/61 Pulmonary Artery Pressure 29/13 Cardiac Output 5.5 Cardiac Index 2.6 - Exam GENERAL: Pt awake and alert, well-appearing, well-nourished, and in no acute distress. HEAD: Atraumatic, normocephalic. EYES: Pupils equal, round, sclera anicteric, conjunctiva are normal. ENT: Moist mucous membranes. Tongue smooth, pink, no lesions, protrudes in midline. NECK:Normal range of motion, supple without lymphadenopathy or JVD. No carotid bruits. Thyroid midline, small and firm without palpable masses. LUNGS: Breath sounds diminished to auscultation bilaterally. No wheezes, rales , or rhonchi. Mediastinal chest tube in place to waterseal. HEART: Heart S1, S2, no S3 or S4. Regular rate and rhythm. No murmurs, rubs or gallops. ABDOMEN: Soft, nontender, nondistended, normoactive bowel sounds. No guarding, no rebound. No masses or organomegaly appreciated. EXTREMITIES: 2+ peripheral pulses. Trace edema to bilateral lower extremities. No calf tenderness. NEUROLOGICAL: Pt oriented x 3. No focal deficits noted. Strength and sensation grossly intact. PSYCH: Normal mood, normal affect. SKIN: Warm, dry, intact. - Labs CBC & Chem 7: 09/07/16 06:52 09/07/16 06:52 Labs: Abnormal Lab Results - Last 24 Hours (Table) 09/06/16 09/07/16 09/07/16 Range/Units 21:15 02:24 06:32 RBC (4.30-5.90) m/uL Hgb (13.0-17.5) gm/dL Hct (39.0-53.0) % RDW (11.5-15.5) % Plt Count (150-450) k/uL Glucose (74-99) mg/dL POC Glucose (mg/dL) 137 H 119 H 109 H (75-99) mg/dL Calcium (8.4-10.2) mg/dL AST (17-59) U/L Alkaline Phosphatase (38-126) U/L Total Protein (6.3-8.2) g/dL Albumin (3.5-5.0) g/dL 09/07/16 09/07/16 09/07/16 Range/Units 06:52 06:52 11:54 RBC 2.69 L (4.30-5.90) m/uL Hgb 7.7 L (13.0-17.5) gm/dL Hct 24.9 L (39.0-53.0) % RDW 15.9 H (11.5-15.5) % Plt Count 103 L (150-450) k/uL Glucose 102 H (74-99) mg/dL POC Glucose (mg/dL) 130 H (75-99) mg/dL Calcium 8.3 L (8.4-10.2) mg/dL AST 85 H (17-59) U/L Alkaline Phosphatase 163 H (38-126) U/L Total Protein 4.6 L (6.3-8.2) g/dL Albumin 2.5 L (3.5-5.0) g/dL Assessment and Plan Plan: Impression: 1. Coronary artery disease with previous stent placement, status post coronary artery bypass grafting 4. 2. Diabetes mellitus type 2. 3. Anemia. 4. History of congestive heart failure. 5. History of DVT. 6. History of gastrointestinal disease. 7. Hypertension. 8. Hyperlipidemia. 9. History of myocardial infarction. 10. History of sleep apnea. 11. History of non-Hodgkin's lymphoma. 12. History of pneumonitis. 13. History of CPAP. 14. History of hernia repair. 15. Elevated liver enzymes, improved. Plan: Continue current medications. Continue monitoring and symptomatic treatment. Continue to follow with cardiothoracic surgery and cardiology. Continue DVT prophylaxis. The above impression and plan have been discussed and directed by Dr. Mccarty. Johnathon SUN acting as scribe for Dr. Mccarty.
--- NOTE | 2016-09-07 15:56 | P.PN ---
Subjective 71-year-old male patient was undergone coronary artery bypass surgery and the patient is postop day #4. The patient is doing well. The patient has no specific complaints. Chest tubes have been removed. Sternum stable clean and intact. The patient is hemodynamically stable. The patient is pulling approximately 1000 on his incentive spirometer. The patient also has history of hyperlipidemia, non-Hodgkin's lymphoma, previous coronary stent insertion for coronary artery disease, diabetes mellitus and congestion heart failure. No other significant events over the past 24 hours. The chest x-ray from today shows a small right apical pneumothorax estimated to be at 10% and there is also small left-sided pleural effusion and left basilar atelectatic changes seen. Objective - Vital Signs Vital signs: Vital Signs Temp 98.1 F 09/07/16 11:32 Pulse 86 09/07/16 11:32 Resp 18 09/07/16 11:32 BP 98/55 09/07/16 11:32 Pulse Ox 96 09/07/16 11:32 Intake & Output 09/06/16 09/07/16 09/07/16 18:59 06:59 18:59 Intake Total 560 660 Output Total 1070 60 550 Balance -510 -60 110 Weight 97.3 kg Intake: IV 140 Lactated Ringers 1,000 ml 140 @ 20 mls/hr IV .Q24H [facility] Rx#:[id number] Oral 420 660 Output: Chest Tube Drainage 120 60 50 Mediastinal 60 60 Pleural Catheter Left 60 50 Urine 950 500 Other: Voiding Method Urinal Toilet Toilet Urinal Urinal # Voids 1 # Bowel Movements 0 1 ABP, PAP, CO, CI - Last Documented Arterial Blood Pressure 146/61 Pulmonary Artery Pressure 29/13 Cardiac Output 5.5 Cardiac Index 2.6 - Exam Head exam was generally normal. There was no scleral icterus or corneal arcus. Mucous membranes were moist.Neck was supple and without jugular venous distension, thyromegaly, or carotid bruits. Carotids were easily palpable bilaterally. There was no adenopathy. Lung sounds are diminished special lung bases bilaterally.Cardiac exam revealed the PMI to be normally situated and sized. The rhythm was regular and no extrasystoles were noted during several minutes of auscultation. The first and second heart sounds were normal and physiologic splitting of the second heart sound was noted. There were no murmurs , rubs, clicks, or gallops. Sternum stable clean and intact.Abdominal exam revealed normal bowel sounds. The abdomen was soft, non-tender, and without masses, organomegaly, or appreciable enlargement of the abdominal aorta.Examination of the extremities revealed easily palpable radial, femoral and pedal pulses. There was no cyanosis, clubbing or edema. Surgical wound site over the lower extremity was noted. - Labs CBC & Chem 7: 09/07/16 06:52 09/07/16 06:52 Labs: Abnormal Lab Results - Last 24 Hours (Table) 09/06/16 09/07/16 09/07/16 Range/Units 21:15 02:24 06:32 RBC (4.30-5.90) m/uL Hgb (13.0-17.5) gm/dL Hct (39.0-53.0) % RDW (11.5-15.5) % Plt Count (150-450) k/uL Glucose (74-99) mg/dL POC Glucose (mg/dL) 137 H 119 H 109 H (75-99) mg/dL Calcium (8.4-10.2) mg/dL AST (17-59) U/L Alkaline Phosphatase (38-126) U/L Total Protein (6.3-8.2) g/dL Albumin (3.5-5.0) g/dL 09/07/16 09/07/16 09/07/16 Range/Units 06:52 06:52 11:54 RBC 2.69 L (4.30-5.90) m/uL Hgb 7.7 L (13.0-17.5) gm/dL Hct 24.9 L (39.0-53.0) % RDW 15.9 H (11.5-15.5) % Plt Count 103 L (150-450) k/uL Glucose 102 H (74-99) mg/dL POC Glucose (mg/dL) 130 H (75-99) mg/dL Calcium 8.3 L (8.4-10.2) mg/dL AST 85 H (17-59) U/L Alkaline Phosphatase 163 H (38-126) U/L Total Protein 4.6 L (6.3-8.2) g/dL Albumin 2.5 L (3.5-5.0) g/dL Assessment and Plan Plan: Assessment 1 coronary artery disease with previous bypass surgery. The patient is postop day #4 2 small right apical pneumothorax, asymptomatic 3 CHF currently inactive in stable 4 diabetes mellitus 5 hypertension 6 hyperlipidemia 7 non-Hodgkin's lymphoma 8 previous history of coronary stent insertion for CAD 9 postoperative anemia with a hemoglobin of 7.7 Plan Continue routine postoperative care. Ablate the patient the hallway. [place] for pain control. Continue bronchodilators. Continues incentive spirometer use. We'll continue to follow.
[2016-09-07 17:02] LABS: Glucose,Whole Blood 98 mg/dL (75-99)
[2016-09-07] MEDS: INSULIN LISPRO (humaLOG) 300 UNIT/3 ML VIAL SQ SCH (17:07)
[2016-09-07] MEDS: BENZOCAINE/MENTHOL LOZENG 1 EACH LOZENGE MUCOUS MEM PRN (17:15)
[2016-09-07 20:58] LABS: Glucose,Whole Blood 182 mg/dL (75-99)
[2016-09-07] MEDS: INSULIN NPH 300 UNIT/3 ML VIAL SQ SCH (21:37)
[2016-09-07] MEDS: SENNOSIDES-DOCUSATE SODIUM 1 EACH TAB PO SCH (21:38)
[2016-09-07] MEDS: METOPROLOL TARTRATE 25 MG TAB PO SCH (21:38)
[2016-09-08 02:16] LABS: Glucose,Whole Blood 189 mg/dL (75-99)
[2016-09-08 06:05] LABS: Glucose,Whole Blood 96 mg/dL (75-99)
[2016-09-08 06:51] LABS: Basophils % (A) 0 %; CH 28.7; CHCM 31.2; Eosinophils # (A) 0.2 k/uL (0-0.7); Eosinophils % (A) 4 %; HCT 23.6 % (39.0-53.0); HDW 2.81; HGB 7.4 gm/dL (13.0-17.5); Hypochromasia Slight; Luc # (Auto) 0.12; Luc % (Auto) 2; Lymphocytes # (A) 0.8 k/uL (1.0-4.8); Lymphocytes % (A) 16 %; MCH 28.8 pg (25.0-35.0); MCHC 31.2 g/dL (31.0-37.0); MCV 92.4 fL (80.0-100.0); Mean Platelet Volume 7.4; Monocytes # (A) 0.4 k/uL (0-1.0); Monocytes % (A) 8 %; Neutrophils # (A) 3.6 k/uL (1.3-7.7); Neutrophils % (A) 69 %; RBC 2.55 m/uL (4.30-5.90); RDW 15.9 % (11.5-15.5); WBC 5.1 k/uL (3.8-10.6); WBC (Perox) 5.21
[2016-09-08] MEDS: PANTOPRAZOLE 40 MG TABLET PO SCH (06:55)
[2016-09-08] MEDS: INSULN ASP PRT/INSULIN ASPART 100 UNIT/ML 10 ML VIAL SQ SCH (06:59)
[2016-09-08 07:12] LABS: ALT 52 U/L (21-72); AST 42 U/L (17-59); Alkaline Phosphatase 122 U/L (38-126); Anion Gap 7 mmol/L; Blood Urea Nitrogen 21 mg/dL (9-20); Calcium 8.2 mg/dL (8.4-10.2); Carbon Dioxide 26 mmol/L (22-30); Chloride 105 mmol/L (98-107); Glucose 92 mg/dL (74-99); Non-African American GFR(MDRD) >60 (>60 ml/min/1.73 sqM); Potassium 4.4 mmol/L (3.5-5.1); Sodium 138 mmol/L (137-145); Total Bilirubin 0.6 mg/dL (0.2-1.3); Total Protein 4.5 g/dL (6.3-8.2)
[2016-09-08] MEDS: HEPARIN SODIUM,PORCINE 5,000 UNIT/ML 1 ML VIAL SQ SCH ×2 (07:55→17:27)
[2016-09-08] MEDS: CLOPIDOGREL 75 MG TAB PO SCH (07:55)
[2016-09-08] MEDS: METOPROLOL TARTRATE 25 MG TAB PO SCH (07:55)
[2016-09-08] MEDS: ASPIRIN 325 MG TAB PO SCH (07:55)
[2016-09-08] MEDS: BENZOCAINE/MENTHOL LOZENG 1 EACH LOZENGE MUCOUS MEM PRN ×2 (07:56→17:51)
[2016-09-08] MEDS: IPRATROPIUM-ALBUTEROL 3 ML NEB INHALATION SCH ×5 (07:57→20:05)
[2016-09-08] MEDS: FERROUS SULFATE 325 MG TAB PO SCH ×2 (08:00→17:51)
[2016-09-08] MEDS ORDERED: METOPROLOL TARTRATE 25 MG TAB PO STA (09:06)
[2016-09-08] MEDS ORDERED: FUROSEMIDE 10 MG/ML 2 ML VIAL IV STA (09:07)
--- NOTE | 2016-09-08 09:58 | P.PN ---
Subjective Principal diagnosis: Coronary artery disease. POD #5 coronary artery bypass grafting 4 vessels (left internal mammary artery to the left anterior descending artery, saphenous vein graft to diagonal artery 1, saphenous vein graft to diagonal artery 2, saphenous vein graft to posterior descending artery). Endoscopic vein harvest left greater saphenous vein. Epi- aortic ultrasound. Transesophageal echocardiogram. Patient currently sitting up in bed in no apparent distress status post epicardial pacemaker wire/mediastinal chest tube removal. No new complaints at this time. Objective - Vital Signs Vital signs: Vital Signs Temp 98.1 F 09/08/16 08:00 Pulse 92 09/08/16 08:09 Resp 18 09/08/16 08:00 BP 134/63 09/08/16 08:00 Pulse Ox 96 09/08/16 08:00 Intake & Output 09/07/16 09/08/16 09/08/16 18:59 06:59 18:59 Intake Total 900 480 240 Output Total 550 350 10 Balance 350 130 230 Weight 97.2 kg Intake: Oral 900 480 240 Output: Chest Tube Drainage 50 50 10 Mediastinal 20 10 Pleural Catheter Left 50 30 Urine 500 300 Other: Voiding Method Toilet Toilet Toilet Urinal Urinal Urinal # Voids 1 1 # Bowel Movements 1 ABP, PAP, CO, CI - Last Documented Arterial Blood Pressure 146/61 Pulmonary Artery Pressure 29/13 Cardiac Output 5.5 Cardiac Index 2.6 - Constitutional General appearance: Present: cooperative, no acute distress - Respiratory Details: Lungs sounds diminished bilaterally. Respirations even, nonlabored. Currently on room air with oxygen saturations 96%. Able to achieve 1000 mL on his incentive spirometer. Mediastinal chest tubes were to waterseal, had 20 mL serous fluid drainage overnight, 170 mL drainage in the last 24 hours and they were DC'd this morning. - Cardiovascular Details: S1, S2 present. Regular rate and rhythm, normal sinus rhythm on telemetry. Sternum stable. Heart hugger in place with patient demonstrating appropriate use. Arterial and venous epicardial pacemaker wires were discontinued this morning. Teds/SCDs present. Trace left lower extremity edema. - Gastrointestinal Gastrointestinal Comment(s): Abdomen soft, nontender, nondistended. Active bowel sounds 4 quadrants. Positive bowel movement yesterday. Tolerating diet. - Genitourinary Genitourinary Comment(s): Continues to void clear, yellow urine. - Integumentary Integumentary Comment(s): Anterior chest incision well approximated covered with dry intact dressing. Left lower extremity EVH site well approximated. - Musculoskeletal Musculoskeletal: Present: gait normal, strength equal bilaterally - Psychiatric Psychiatric: Present: A&O x's 3, appropriate affect, intact judgment & insight - Allied health notes Allied health notes reviewed: nursing - Labs CBC & Chem 7: 09/08/16 06:35 09/08/16 06:28 Labs: Abnormal Lab Results - Last 24 Hours (Table) 09/07/16 09/07/16 09/08/16 Range/Units 11:54 20:57 02:15 RBC (4.30-5.90) m/uL Hgb (13.0-17.5) gm/dL Hct (39.0-53.0) % RDW (11.5-15.5) % Plt Count (150-450) k/uL Lymphocytes # (1.0-4.8) k/uL BUN (9-20) mg/dL POC Glucose (mg/dL) 130 H 182 H 189 H (75-99) mg/dL Calcium (8.4-10.2) mg/dL Total Protein (6.3-8.2) g/dL Albumin (3.5-5.0) g/dL 09/08/16 09/08/16 Range/Units 06:28 06:35 RBC 2.55 L (4.30-5.90) m/uL Hgb 7.4 L (13.0-17.5) gm/dL Hct 23.6 L (39.0-53.0) % RDW 15.9 H (11.5-15.5) % Plt Count 121 L (150-450) k/uL Lymphocytes # 0.8 L (1.0-4.8) k/uL BUN 21 H (9-20) mg/dL POC Glucose (mg/dL) (75-99) mg/dL Calcium 8.2 L (8.4-10.2) mg/dL Total Protein 4.5 L (6.3-8.2) g/dL Albumin 2.4 L (3.5-5.0) g/dL - Imaging and Cardiology Chest x-ray: image reviewed Assessment and Plan (1) Coronary artery disease Status: Acute (2) Diabetes Status: Acute (3) Hypertension Status: Acute (4) History of non-Hodgkin's lymphoma Status: Acute (5) Hyperlipemia Status: Acute Plan: 1. Continue aspirin, subcu heparin, Plavix, lisinopril. Will increase Lopressor to 100 mg by mouth twice a day to try and gain better control of her heart rate. 2. Liver enzymes have returned to normal. Atorvastatin restarted. 3. Encourage incentive spirometry. 4. Epicardial pacemaker wires/mediastinal chest tubes DC'd. Chest x-ray in the morning. 5. Increase activity. Ambulate in hallway. Physical therapy to follow. 6. Will give Lasix 20 mg IV push 1 today. Anticipate oral Lasix upon discharge. 7. GI/DVT prophylaxis. 8. Insulin/diabetic management per primary service. 9. Anticipate discharge tomorrow morning. Time with Patient: Greater than 30
--- NOTE | 2016-09-08 10:43 | P.PN ---
Subjective Patient is a 71-year-old male admitted with coronary artery disease status post CABG. Patient is doing well. Patient is lying in bed just having had his pacemaker wires removed and is anticipating chest tube removal later this morning. Denies chills, fevers, nausea, vomiting, shortness of breath, chest pain, or abdominal pain. Patient is tolerating diet. Patient reports flatus with bowel movement. Patient has been up ambulating. Objective - Vital Signs Vital signs: Vital Signs Temp 98.1 F 09/08/16 08:00 Pulse 92 09/08/16 08:09 Resp 18 09/08/16 08:00 BP 134/63 09/08/16 08:00 Pulse Ox 96 09/08/16 08:00 Intake & Output 09/07/16 09/08/16 09/08/16 18:59 06:59 18:59 Intake Total 900 480 240 Output Total 550 350 10 Balance 350 130 230 Weight 97.2 kg Intake: Oral 900 480 240 Output: Chest Tube Drainage 50 50 10 Mediastinal 20 10 Pleural Catheter Left 50 30 Urine 500 300 Other: Voiding Method Toilet Toilet Toilet Urinal Urinal Urinal # Voids 1 1 # Bowel Movements 1 ABP, PAP, CO, CI - Last Documented Arterial Blood Pressure 146/61 Pulmonary Artery Pressure 29/13 Cardiac Output 5.5 Cardiac Index 2.6 - Exam GENERAL: Pt awake and alert, well-appearing, well-nourished, and in no acute distress. HEAD: Atraumatic, normocephalic. EYES: Pupils equal, round, sclera anicteric, conjunctiva are normal. ENT: Moist mucous membranes. Tongue smooth, pink, no lesions, protrudes in midline. NECK:Normal range of motion, supple without lymphadenopathy or JVD. No carotid bruits. Thyroid midline, small and firm without palpable masses. LUNGS: Breath sounds diminished to auscultation bilaterally. No wheezes, rales , or rhonchi. Mediastinal chest tube in place to waterseal. HEART: Heart S1, S2, no S3 or S4. Regular rate and rhythm. No murmurs, rubs or gallops. ABDOMEN: Soft, nontender, nondistended, normoactive bowel sounds. No guarding, no rebound. No masses or organomegaly appreciated. EXTREMITIES: 2+ peripheral pulses. Trace edema to bilateral lower extremities. No calf tenderness. NEUROLOGICAL: Pt oriented x 3. No focal deficits noted. Strength and sensation grossly intact. PSYCH: Normal mood, normal affect. SKIN: Warm, dry, intact. - Labs CBC & Chem 7: 09/08/16 06:35 09/08/16 06:28 Labs: Abnormal Lab Results - Last 24 Hours (Table) 09/07/16 09/07/16 09/08/16 Range/Units 11:54 20:57 02:15 RBC (4.30-5.90) m/uL Hgb (13.0-17.5) gm/dL Hct (39.0-53.0) % RDW (11.5-15.5) % Plt Count (150-450) k/uL Lymphocytes # (1.0-4.8) k/uL BUN (9-20) mg/dL POC Glucose (mg/dL) 130 H 182 H 189 H (75-99) mg/dL Calcium (8.4-10.2) mg/dL Total Protein (6.3-8.2) g/dL Albumin (3.5-5.0) g/dL 09/08/16 09/08/16 Range/Units 06:28 06:35 RBC 2.55 L (4.30-5.90) m/uL Hgb 7.4 L (13.0-17.5) gm/dL Hct 23.6 L (39.0-53.0) % RDW 15.9 H (11.5-15.5) % Plt Count 121 L (150-450) k/uL Lymphocytes # 0.8 L (1.0-4.8) k/uL BUN 21 H (9-20) mg/dL POC Glucose (mg/dL) (75-99) mg/dL Calcium 8.2 L (8.4-10.2) mg/dL Total Protein 4.5 L (6.3-8.2) g/dL Albumin 2.4 L (3.5-5.0) g/dL Assessment and Plan Plan: Impression: 1. Coronary artery disease with previous stent placement, status post coronary artery bypass grafting 4. 2. Diabetes mellitus type 2. 3. Anemia, acute blood loss expected secondary to surgery 4. History of congestive heart failure. 5. History of DVT. 6. History of gastrointestinal disease. 7. Hypertension. 8. Hyperlipidemia. 9. History of myocardial infarction. 10. History of sleep apnea with use of CPAP. 11. History of non-Hodgkin's lymphoma. 12. History of pneumonitis. 13. History of hernia repair. 14. Elevated liver enzymes, resolved. Plan: Continue current medications. Continue monitoring and symptomatic treatment. Continue to follow with cardiothoracic surgery and cardiology. Continue DVT prophylaxis. The above impression and plan have been discussed and directed by Dr. Mccarty. Johnathon SUN acting as scribe for Dr. Mccarty.
--- NOTE | 2016-09-08 11:14 | XR ---
EXAMINATION TYPE: XR chest 1V portable DATE OF EXAM: 09/08/2016 6:46 AM COMPARISON: 09/07/2016 INDICATION: Post cardiac surgery TECHNIQUE: Single frontal view of the chest is obtained. FINDINGS: The heart size is normal. The pulmonary vasculature is normal. The lungs are clear. Minimal left pleural effusion is present. IMPRESSION: 1. Small left pleural effusion.
[2016-09-08 11:46] LABS: Glucose,Whole Blood 119 mg/dL (75-99)
[2016-09-08] MEDS: CHOLECALCIFEROL 1,000 UNIT TAB PO SCH (11:47)
[2016-09-08] MEDS: LISINOPRIL 5 MG TAB PO SCH (11:47)
[2016-09-08] MEDS: MULTIVITAMINS, THERA 1 EACH TAB PO SCH (11:47)
--- NOTE | 2016-09-08 12:43 | P.PN ---
Subjective 71-year-old male patient was undergone coronary artery bypass surgery and the patient is postop day #4. The patient is doing well. The patient has no specific complaints. Chest tubes have been removed. Sternum stable clean and intact. The patient is hemodynamically stable. The patient is pulling approximately 1000 on his incentive spirometer. The patient also has history of hyperlipidemia, non-Hodgkin's lymphoma, previous coronary stent insertion for coronary artery disease, diabetes mellitus and congestion heart failure. No other significant events over the past 24 hours. The chest x-ray from today shows a small right apical pneumothorax estimated to be at 10% and there is also small left-sided pleural effusion and left basilar atelectatic changes seen. On 09/08/2016 the patient is eating seen in follow-up. The patient is postop day #5. He is doing well. He has no chest tubes. He is hemodynamically stable. No new complaints otherwise for now. His chest x-ray from this morning shows no evidence of any pneumothorax. The patient is a small left- sided pleural effusion. The patient is emanating in the hallway. The patient is using incentive spirometer. His pulse ox is around 95% on room air. Objective - Vital Signs Vital signs: Vital Signs Temp 97.8 F 09/08/16 12:00 Pulse 100 09/08/16 12:00 Resp 18 09/08/16 12:00 BP 123/61 09/08/16 12:00 Pulse Ox 95 09/08/16 12:00 Intake & Output 09/07/16 09/08/16 09/08/16 18:59 06:59 18:59 Intake Total 900 480 240 Output Total 550 350 10 Balance 350 130 230 Weight 97.2 kg Intake: Oral 900 480 240 Output: Chest Tube Drainage 50 50 10 Mediastinal 20 10 Pleural Catheter Left 50 30 Urine 500 300 Other: Voiding Method Toilet Toilet Toilet Urinal Urinal Urinal # Voids 1 1 # Bowel Movements 1 ABP, PAP, CO, CI - Last Documented Arterial Blood Pressure 146/61 Pulmonary Artery Pressure 29/13 Cardiac Output 5.5 Cardiac Index 2.6 - Exam Head exam was generally normal. There was no scleral icterus or corneal arcus. Mucous membranes were moist.Neck was supple and without jugular venous distension, thyromegaly, or carotid bruits. Carotids were easily palpable bilaterally. There was no adenopathy. Lung sounds are diminished special lung bases bilaterally.Cardiac exam revealed the PMI to be normally situated and sized. The rhythm was regular and no extrasystoles were noted during several minutes of auscultation. The first and second heart sounds were normal and physiologic splitting of the second heart sound was noted. There were no murmurs , rubs, clicks, or gallops. Sternum stable clean and intact.Abdominal exam revealed normal bowel sounds. The abdomen was soft, non-tender, and without masses, organomegaly, or appreciable enlargement of the abdominal aorta.Examination of the extremities revealed easily palpable radial, femoral and pedal pulses. There was no cyanosis, clubbing or edema. Surgical wound site over the lower extremity was noted. - Labs CBC & Chem 7: 09/08/16 06:35 09/08/16 06:28 Labs: Abnormal Lab Results - Last 24 Hours (Table) 09/07/16 09/08/16 09/08/16 Range/Units 20:57 02:15 06:28 RBC (4.30-5.90) m/uL Hgb (13.0-17.5) gm/dL Hct (39.0-53.0) % RDW (11.5-15.5) % Plt Count (150-450) k/uL Lymphocytes # (1.0-4.8) k/uL BUN 21 H (9-20) mg/dL POC Glucose (mg/dL) 182 H 189 H (75-99) mg/dL Calcium 8.2 L (8.4-10.2) mg/dL Total Protein 4.5 L (6.3-8.2) g/dL Albumin 2.4 L (3.5-5.0) g/dL 09/08/16 09/08/16 Range/Units 06:35 11:40 RBC 2.55 L (4.30-5.90) m/uL Hgb 7.4 L (13.0-17.5) gm/dL Hct 23.6 L (39.0-53.0) % RDW 15.9 H (11.5-15.5) % Plt Count 121 L (150-450) k/uL Lymphocytes # 0.8 L (1.0-4.8) k/uL BUN (9-20) mg/dL POC Glucose (mg/dL) 119 H (75-99) mg/dL Calcium (8.4-10.2) mg/dL Total Protein (6.3-8.2) g/dL Albumin (3.5-5.0) g/dL Assessment and Plan Plan: Assessment 1 coronary artery disease with previous bypass surgery. The patient is postop day #5 2 small right apical pneumothorax, asymptomatic, recovered 3 CHF currently inactive in stable 4 diabetes mellitus 5 hypertension 6 hyperlipidemia 7 non-Hodgkin's lymphoma 8 previous history of coronary stent insertion for CAD 9 postoperative anemia with a hemoglobin of 7.7 Plan Continue routine postoperative care. Ablate the patient the hallway. [place] for pain control. Continue bronchodilators. Continues incentive spirometer use. We'll continue to follow. Chest x-ray was reviewed and there is small left-sided pleural effusion. No pneumothorax. The patient is recovering. The patient is ambulating. Discharge planning is in progress.
--- NOTE | 2016-09-08 15:23 | P.PN ---
Subjective Principal diagnosis: CABG This is a pleasant 71-year-old gentleman who is status post coronary artery bypass grafting surgery, he was seen and examined this morning, feeling well overall. Blood pressure this morning 122/60 with a heart rate in the 100s. Hemoglobin 7.4, platelet count 121, potassium 4.4, BUN 21, creatinine 0.8. Doing very well overall, anticipating possible discharge home tomorrow. He was resumed on his statin today. Objective - Vital Signs Vital signs: Vital Signs Temp 97.8 F 09/08/16 12:00 Pulse 100 09/08/16 12:00 Resp 18 09/08/16 12:00 BP 123/61 09/08/16 12:00 Pulse Ox 95 09/08/16 12:00 Intake & Output 09/07/16 09/08/16 09/08/16 18:59 06:59 18:59 Intake Total 900 480 480 Output Total 550 350 310 Balance 350 130 170 Weight 97.2 kg Intake: Oral 900 480 480 Output: Chest Tube Drainage 50 50 10 Mediastinal 20 10 Pleural Catheter Left 50 30 Urine 500 300 300 Other: Voiding Method Toilet Toilet Toilet Urinal Urinal Urinal # Voids 1 1 # Bowel Movements 1 ABP, PAP, CO, CI - Last Documented Arterial Blood Pressure 146/61 Pulmonary Artery Pressure 29/13 Cardiac Output 5.5 Cardiac Index 2.6 - Exam PHYSICAL EXAMINATION: HEENT: Head is atraumatic, normocephalic. Pupils equal, round. Neck is supple. There is no elevated jugular venous pressure. HEART EXAMINATION: Heart S1, S2 normal. No murmur or gallop heard. CHEST EXAMINATION: Clear with diminished air entry to bilateral bases. Mediastinal chest tube in place to water seal. ABDOMEN: Soft, nontender. Bowel sounds are heard. No organomegaly noted. EXTREMITIES: 2+ peripheral pulses with trace evidence of peripheral edema and no calf tenderness noted. NEUROLOGIC patient is awake, alert and oriented -3. . - Labs CBC & Chem 7: 09/08/16 06:35 09/08/16 06:28 Labs: Abnormal Lab Results - Last 24 Hours (Table) 09/07/16 09/08/16 09/08/16 Range/Units 20:57 02:15 06:28 RBC (4.30-5.90) m/uL Hgb (13.0-17.5) gm/dL Hct (39.0-53.0) % RDW (11.5-15.5) % Plt Count (150-450) k/uL Lymphocytes # (1.0-4.8) k/uL BUN 21 H (9-20) mg/dL POC Glucose (mg/dL) 182 H 189 H (75-99) mg/dL Calcium 8.2 L (8.4-10.2) mg/dL Total Protein 4.5 L (6.3-8.2) g/dL Albumin 2.4 L (3.5-5.0) g/dL 09/08/16 09/08/16 Range/Units 06:35 11:40 RBC 2.55 L (4.30-5.90) m/uL Hgb 7.4 L (13.0-17.5) gm/dL Hct 23.6 L (39.0-53.0) % RDW 15.9 H (11.5-15.5) % Plt Count 121 L (150-450) k/uL Lymphocytes # 0.8 L (1.0-4.8) k/uL BUN (9-20) mg/dL POC Glucose (mg/dL) 119 H (75-99) mg/dL Calcium (8.4-10.2) mg/dL Total Protein (6.3-8.2) g/dL Albumin (3.5-5.0) g/dL Assessment and Plan (1) S/P CABG (coronary artery bypass graft) Status: Acute (2) Coronary artery disease Status: Acute (3) Diabetes Status: Acute (4) History of non-Hodgkin's lymphoma Status: Acute (5) Hypertension Status: Acute (6) Acute non-ST segment elevation myocardial infarction (STEMI) following previous myocardial infarction Status: Acute (7) Hyperlipemia Status: Acute Plan: From cardiology's perspective, we'll continue current medications. Patient has also been encouraged regarding the use of his incentive spirometry. Statin has been resumed. DNP note has been reviewed, I agree with a documented findings and plan of care. Patient was seen and examined.
[2016-09-08 17:12] LABS: Glucose,Whole Blood 136 mg/dL (75-99)
[2016-09-08] MEDS: INSULIN LISPRO (humaLOG) 300 UNIT/3 ML VIAL SQ SCH (17:29)
[2016-09-08 20:55] LABS: Glucose,Whole Blood 153 mg/dL (75-99)
[2016-09-08] MEDS ORDERED: ATORVASTATIN 40 MG TAB PO SCH (21:00)
[2016-09-08] MEDS: SENNOSIDES-DOCUSATE SODIUM 1 EACH TAB PO SCH (22:19)
[2016-09-08] MEDS: METOPROLOL TARTRATE 50 MG TAB PO SCH (22:19)
[2016-09-08] MEDS: INSULIN NPH 300 UNIT/3 ML VIAL SQ SCH (22:20)
[2016-09-09] MEDS: HEPARIN SODIUM,PORCINE 5,000 UNIT/ML 1 ML VIAL SQ SCH ×2 (00:17→09:08)
[2016-09-09] MEDS: HYDROcodone/APAP 5-325MG 1 EACH TAB PO PRN (00:24)
[2016-09-09 02:20] LABS: Glucose,Whole Blood 141 mg/dL (75-99)
[2016-09-09 06:08] LABS: Glucose,Whole Blood 122 mg/dL (75-99)
[2016-09-09 06:52] LABS: Basophils % (A) 0 %; CH 28.5; CHCM 30.6; Eosinophils # (A) 0.3 k/uL (0-0.7); Eosinophils % (A) 5 %; HCT 25.2 % (39.0-53.0); HDW 2.82; HGB 7.8 gm/dL (13.0-17.5); Hypochromasia Moderate; Luc # (Auto) 0.17; Luc % (Auto) 3; Lymphocytes # (A) 1.3 k/uL (1.0-4.8); Lymphocytes % (A) 20 %; MCV 93.6 fL (80.0-100.0); Mean Platelet Volume 7.7; Monocytes # (A) 0.4 k/uL (0-1.0); Monocytes % (A) 7 %; Neutrophils # (A) 4.1 k/uL (1.3-7.7); Neutrophils % (A) 66 %; RBC 2.69 m/uL (4.30-5.90); RDW 15.5 % (11.5-15.5); WBC 6.3 k/uL (3.8-10.6); WBC (Perox) 6.49
[2016-09-09] MEDS: FERROUS SULFATE 325 MG TAB PO SCH (07:05)
[2016-09-09] MEDS: PANTOPRAZOLE 40 MG TABLET PO SCH (07:06)
[2016-09-09 07:08] LABS: ALT 44 U/L (21-72); AST 34 U/L (17-59); Alkaline Phosphatase 116 U/L (38-126); Anion Gap 9 mmol/L; Blood Urea Nitrogen 20 mg/dL (9-20); Calcium 8.5 mg/dL (8.4-10.2); Carbon Dioxide 27 mmol/L (22-30); Chloride 103 mmol/L (98-107); Glucose 117 mg/dL (74-99); Non-African American GFR(MDRD) >60 (>60 ml/min/1.73 sqM); Potassium 4.1 mmol/L (3.5-5.1); Sodium 139 mmol/L (137-145); Total Bilirubin 0.7 mg/dL (0.2-1.3)
[2016-09-09] MEDS: INSULN ASP PRT/INSULIN ASPART 100 UNIT/ML 10 ML VIAL SQ SCH (07:08)
[2016-09-09] MEDS: IPRATROPIUM-ALBUTEROL 3 ML NEB INHALATION SCH ×2 (08:12→11:23)
--- NOTE | 2016-09-09 08:29 | XR ---
EXAMINATION TYPE: XR chest 2V DATE OF EXAM: 09/09/2016 6:17 AM COMPARISON: Chest x-ray from yesterday and older studies. HISTORY: Post chest tube removal progress study. TECHNIQUE: Frontal and lateral views of the chest are obtained. FINDINGS: Post-CABG changes with mediastinal clips and sternal wires is redemonstrated. There is sta ble mild cardiomegaly with atherosclerotic thoracic aorta. There is persistent small left pleural eff usion and tiny right pleural effusion. There is associated bibasilar atelectasis and/or infiltrate. U pper lungs remain clear without sizable pneumothorax. Osseous structures are intact. IMPRESSION: Mild cardiomegaly with small left and tiny right pleural effusion and associated left gr eater than right bibasilar atelectasis and/or infiltrate all redemonstrated.
[2016-09-09] MEDS: ASPIRIN 325 MG TAB PO SCH (09:08)
[2016-09-09] MEDS: CLOPIDOGREL 75 MG TAB PO SCH (09:08)
[2016-09-09] MEDS: METOPROLOL TARTRATE 50 MG TAB PO SCH (09:08)
[2016-09-09 09:52] VITALS: RESP 20; TEMP 97.1
--- NOTE | 2016-09-09 11:56 | P.PN ---
Subjective Patient is a 71-year-old male admitted with coronary artery disease status post CABG. Patient is doing well. Patient is doing up in a chair. Denies chills, fevers, nausea, vomiting, shortness of breath, chest pain, or abdominal pain. Patient is tolerating diet. Patient reports flatus with bowel movement. Patient has been up ambulating. Patient is currently awaiting discharge to home. Objective - Vital Signs Vital signs: Vital Signs Temp 97.1 F L 09/09/16 08:30 Pulse 84 09/09/16 11:23 Resp 20 09/09/16 08:30 BP 111/57 09/09/16 08:30 Pulse Ox 94 L 09/09/16 08:30 Intake & Output 09/08/16 09/09/16 09/09/16 18:59 06:59 18:59 Intake Total 837 300 Output Total 1285 Balance -448 300 Weight 96.3 kg Intake: Oral 837 300 Output: Chest Tube Drainage 10 Mediastinal 10 Urine 1275 Other: Voiding Method Toilet Toilet Toilet Urinal Urinal Urinal # Voids 2 1 # Bowel Movements 1 ABP, PAP, CO, CI - Last Documented Arterial Blood Pressure 146/61 Pulmonary Artery Pressure 29/13 Cardiac Output 5.5 Cardiac Index 2.6 - Exam GENERAL: Pt awake and alert, well-appearing, well-nourished, and in no acute distress. HEAD: Atraumatic, normocephalic. EYES: Pupils equal, round, sclera anicteric, conjunctiva are normal. ENT: Moist mucous membranes. Tongue smooth, pink, no lesions, protrudes in midline. NECK:Normal range of motion, supple without lymphadenopathy or JVD. No carotid bruits. Thyroid midline, small and firm without palpable masses. LUNGS: Breath sounds diminished to auscultation bilaterally. No wheezes, rales , or rhonchi. HEART: Heart S1, S2, no S3 or S4. Regular rate and rhythm. No murmurs, rubs or gallops. ABDOMEN: Soft, nontender, nondistended, normoactive bowel sounds. No guarding, no rebound. No masses or organomegaly appreciated. EXTREMITIES: 2+ peripheral pulses. Trace edema to bilateral lower extremities. No calf tenderness. NEUROLOGICAL: Pt oriented x 3. No focal deficits noted. Strength and sensation grossly intact. PSYCH: Normal mood, normal affect. SKIN: Warm, dry, intact. - Labs CBC & Chem 7: 09/09/16 06:25 09/09/16 06:25 Labs: Abnormal Lab Results - Last 24 Hours (Table) 09/08/16 09/08/16 09/09/16 Range/Units 17:07 20:53 02:18 RBC (4.30-5.90) m/uL Hgb (13.0-17.5) gm/dL Hct (39.0-53.0) % Glucose (74-99) mg/dL POC Glucose (mg/dL) 136 H 153 H 141 H (75-99) mg/dL Total Protein (6.3-8.2) g/dL Albumin (3.5-5.0) g/dL 09/09/16 09/09/16 09/09/16 Range/Units 06:03 06:25 06:25 RBC 2.69 L (4.30-5.90) m/uL Hgb 7.8 L (13.0-17.5) gm/dL Hct 25.2 L (39.0-53.0) % Glucose 117 H (74-99) mg/dL POC Glucose (mg/dL) 122 H (75-99) mg/dL Total Protein 5.0 L (6.3-8.2) g/dL Albumin 2.7 L (3.5-5.0) g/dL Assessment and Plan Plan: Impression: 1. Coronary artery disease with previous stent placement, status post coronary artery bypass grafting 4. 2. Diabetes mellitus type 2. 3. Anemia, acute blood loss expected secondary to surgery 4. History of congestive heart failure. 5. History of DVT. 6. History of gastrointestinal disease. 7. Hypertension. 8. Hyperlipidemia. 9. History of myocardial infarction. 10. History of sleep apnea with use of CPAP. 11. History of non-Hodgkin's lymphoma. 12. History of pneumonitis. 13. History of hernia repair. Plan: Continue current medications. Continue monitoring and symptomatic treatment. Continue to follow with cardiothoracic surgery and cardiology. Continue DVT prophylaxis. If patient is discharged today, patient will follow-up with Dr. Mccarty in a week in the outpatient setting. The above impression and plan have been discussed and directed by Dr. Mccarty. Johnathon SUN acting as scribe for Dr. Mccarty.
[2016-09-09 12:08] VITALS: BP 116/58; PULSE 86
[2016-09-09] MEDS: LISINOPRIL 5 MG TAB PO SCH (12:08)
[2016-09-09] MEDS: MULTIVITAMINS, THERA 1 EACH TAB PO SCH (12:08)
[2016-09-09] MEDS: CHOLECALCIFEROL 1,000 UNIT TAB PO SCH (12:08)
--- NOTE | 2016-09-09 13:15 | P.PN ---
Subjective Principal diagnosis: CABG This is a pleasant 71-year-old gentleman who is status post coronary artery bypass grafting surgery, he was seen and examined this morning, feeling well overall. Being discharged home today. Objective - Vital Signs Vital signs: Vital Signs Temp 97.1 F L 09/09/16 08:30 Pulse 86 09/09/16 12:00 Resp 20 09/09/16 08:30 BP 116/58 09/09/16 12:00 Pulse Ox 94 L 09/09/16 08:30 Intake & Output 09/08/16 09/09/16 09/09/16 18:59 06:59 18:59 Intake Total 837 300 Output Total 1285 Balance -448 300 Weight 96.3 kg Intake: Oral 837 300 Output: Chest Tube Drainage 10 Mediastinal 10 Urine 1275 Other: Voiding Method Toilet Toilet Toilet Urinal Urinal Urinal # Voids 2 1 # Bowel Movements 1 ABP, PAP, CO, CI - Last Documented Arterial Blood Pressure 146/61 Pulmonary Artery Pressure 29/13 Cardiac Output 5.5 Cardiac Index 2.6 - Exam PHYSICAL EXAMINATION: HEENT: Head is atraumatic, normocephalic. Pupils equal, round. Neck is supple. There is no elevated jugular venous pressure. HEART EXAMINATION: Heart S1, S2 normal. No murmur or gallop heard. CHEST EXAMINATION: Clear with diminished air entry to bilateral bases. Mediastinal chest tube in place to water seal. ABDOMEN: Soft, nontender. Bowel sounds are heard. No organomegaly noted. EXTREMITIES: 2+ peripheral pulses with trace evidence of peripheral edema and no calf tenderness noted. NEUROLOGIC patient is awake, alert and oriented -3. . - Labs CBC & Chem 7: 09/09/16 06:25 09/09/16 06:25 Labs: Abnormal Lab Results - Last 24 Hours (Table) 09/08/16 09/08/16 09/09/16 Range/Units 17:07 20:53 02:18 RBC (4.30-5.90) m/uL Hgb (13.0-17.5) gm/dL Hct (39.0-53.0) % Glucose (74-99) mg/dL POC Glucose (mg/dL) 136 H 153 H 141 H (75-99) mg/dL Total Protein (6.3-8.2) g/dL Albumin (3.5-5.0) g/dL 09/09/16 09/09/16 09/09/16 Range/Units 06:03 06:25 06:25 RBC 2.69 L (4.30-5.90) m/uL Hgb 7.8 L (13.0-17.5) gm/dL Hct 25.2 L (39.0-53.0) % Glucose 117 H (74-99) mg/dL POC Glucose (mg/dL) 122 H (75-99) mg/dL Total Protein 5.0 L (6.3-8.2) g/dL Albumin 2.7 L (3.5-5.0) g/dL Assessment and Plan (1) S/P CABG (coronary artery bypass graft) Status: Acute (2) Coronary artery disease Status: Acute (3) Diabetes Status: Acute (4) History of non-Hodgkin's lymphoma Status: Acute (5) Hypertension Status: Acute (6) Acute non-ST segment elevation myocardial infarction (STEMI) following previous myocardial infarction Status: Acute (7) Hyperlipemia Status: Acute Plan: From cardiology's perspective, we'll continue current medications. May be able to be discharged home today. Follow-up in the office 2 weeks post discharge. DNP note has been reviewed, I agree with a documented findings and plan of care. Patient was seen and examined.
--- NOTE | 2016-09-09 16:16 | P.DS ---
Providers Date of admission: 09/03/16 05:42 Attending physician: Silas Tomlin Consults: 09/03/16 14:44 Consult Physician Routine Consulting Provider: Stephen Schaffer Consult Reason/Comments: [employer] Consult: post cardiac surgery Do you want consulting provider notified?: Yes Consult Physician Routine Consulting Provider: Allison Tijerina Consult Reason/Comments: Supervisor Shipping Consult: post cardiac surgery Do you want consulting provider notified?: Yes 09/04/16 23:22 Consult Physician Routine Consulting Provider: Justo Mccarty Consult Reason/Comments: outpatient primary physician Do you want consulting provider notified?: Yes, Notify in am Primary care physician: Stated None - Discharge Diagnosis(es) (1) Coronary artery disease Status: Acute (2) Diabetes Status: Acute (3) Hypertension Status: Acute (4) History of non-Hodgkin's lymphoma Status: Acute (5) Hyperlipemia Status: Acute Hospital Course: FINAL DIAGNOSIS: 1.[Coronary artery disease] 2.[Uncontrolled Type 2 diabetes] 3.[History of congestive heart failure] 4.[History of DVT] 5.[Hypertension] 6.[Hyperlipidemia] 7.[History of myocardial infarction] 8.[History of sleep apnea with use of CPAP] 9.[History of non-Hodgkin's lymphoma] PRINCIPAL PROCEDURE: [] 1.[Coronary artery bypass grafting 4 vessels; left internal mammary artery to left anterior descending artery, reverse saphenous vein graft to diagonal artery 1, reverse saphenous vein graft to diagonal artery 2, reverse saphenous vein graft to posterior descending artery] 2.[Endoscopic vein harvesting of the left greater saphenous vein.] 3.[Epi-aortic ultrasound] 4.[Intraoperative transesophageal echocardiogram] HISTORY OF PRESENT ILLNESS: [This 71-year-old male patient with history of multiple medical problems including coronary artery disease, myocardial infarction with coronary artery stents in the past 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 He underwent cardiac catheterization by Dr. Hemphill and was found to have multivessel coronary artery disease. Dr. Tomlin from cardiothoracic surgery was consulted for the possibility of surgical revascularization. An extensive discussion was had with the patient, all risks and benefits were explained, and consent was obtained to proceed with surgery. The patient was sent home to allow for Plavix metabolism, to be brought back in as an outpatient.] HOSPITAL COURSE:[ The patient was brought to the hospital on 09/03/2016, taken to the preoperative area, prepared in usual fashion, and subsequently taken to the operating room where Dr. Tomlin performed an elective coronary artery bypass grafting 4 vessels, the left internal mammary artery to the left anterior descent artery, reverse saphenous vein graft to diagonal artery 1, reverse saphenous vein graft to diagonal artery 2, reverse saphenous vein graft to posterior descending artery, endoscopic vein harvesting of the left greater saphenous vein, epi-aortic ultrasound, and intraoperative transesophageal echocardiogram. Upon completion of surgery, the patient transferred to the cardiovascular intensive care unit where he was recovered, monitored hemodynamically, and where he progressed to cardiac rehabilitation phase 1. He was extubated, all lines, tubes, and drips were discontinued when appropriate, and he was transferred to [address] [place] [address] for further monitoring and rehabilitation. His oxygen was titrated down, he continued to work with physical therapy, and was ready to be discharged home on postoperative day #6 with [facility] to follow. He received written and verbal instruction regarding his medications, activity restrictions, signs and symptoms requiring physician notification, and follow-up appointments.] COMPLICATIONS: [The patient experienced no postoperative complications] CONSULTATIONS: 1.[Dr. Tijerina for cardiology] 2.[Dr. Schaffer pulmonology] 3.[Dr. Mccarty for internal medicine] DISCHARGE INSTRUCTIONS: 1. No driving for 4 weeks, or until physician gives their ok. 2. The patient should sleep in their own bed, no medical bed needed. 3. Stairs are not an issue. If the bedroom is upstairs, it is advised that the patient go up at night and down in the morning for the first week. Go slowly, using handrail and take 1 step at a time. 4. ADAIR hose are to be worn for 30 days or until physician discontinues. 5. Heart hugger is to be worn 100% of the time until physician discontinues.( except when showering) 6. No lifting, pushing, or pulling more than 10 pounds for 12 weeks. The physician will advise of any restriction changes. 7. The patient is expected to continue the prescribed walking program. 8. Continue pain control per as needed orders. 9. Continue with incentive spirometry and splinting/heart hugger until otherwise directed by the physician. 10. Must shower daily using liquid antibacterial soap and a separate white washcloth for each individual incision. 11. Routine sternal incision care.No lotions, powders, ointments on incisions. HOME HEALTH SERVICES TO PROVIDE: RN SKILLED HOME CARE SERVICES FOR POST-OP SURGICAL PATIENTS WITH THE FOLLOWING: Coronary Artery Bypass Surgery (CABG), Mitral Valve Replacement/ Repair ( MVR), Aortic Valve Replacement/Repair (AVR) RN TO CONTINUE EDUCATION FROM ``ROAD TO A HEALTH HEART PATIENT EDUCATION MANUAL (GIVEN TO PATIENT IN THE HOSPITAL) MEDICATION RECONCILIATION WITH EDUCATION NEEDED ON FIRST HOME VISIT EMPHASIZE IMPORTANCE OF WEARING HEART HUGGER ENCOURAGE USE OF INCENTIVE SPIROMETER 10 X EVERY HOUR WHILE AWAKE ENCOURAGE UTILIZATION OF LOWER EXTREMITY COMPRESSION STOCKINGS/ADAIR HOSE and ELEVATE LEGS ABOVE LEVEL OF HEART WHILE AT REST. ENCOURAGE AMBULATION 3-5x/day INCREASING TOLERATES, WHILE AVOID EXTREMES IN TEMPERATURE FREQUENCY: RN TO OPEN THE PATIENT WITHIN 24 HOURS OF DISCHARGE FROM THE HOSPITAL WITH TELEHEALTH INSTALLED AT [facility] [place], RN TO VISIT 2-3 X A WEEK FOR 4 WEEKS ESTABLISHED BY PATIENT NEEDS. LABORATORY: CBC, CMP TO BE DRAWN ON THE THIRD DAY HOME, Wednesday09/14/2016 (RAN STAT) FAX RESULTS TO [phone]. TELEHEALTH PARAMETERS: WEIGHT: NOTIFY MD OF WEIGHT GAIN OF 2 LBS IN 24 HOURS OR 5 LBS IN ONE WEEK HR: NOTIFY MD OF HR <55 BPM OR HR>100 BPM BP: NOTIFY MD IF BP <90/55 OR BP>140/100 O2 SAT: NOTIFY MD IF PO2<93% ON ROOM AIR SEND TELEHEALTH REPORT TO PUPPET MASTER AND CARDIOVASCULAR SURGEON THE FIRST WEEK OF CARE AND THEN BI-WEEKLY. PLEASE ADDITIONALLY COMMUNICATE ANY ABNORMALS AND NEW FINDINGS TO THE SURGEONS OFFICE. Discharge to home with [facility] care to follow Plan - Discharge Summary New Discharge Prescriptions: Atorvastatin [Lipitor] 40 mg PO HS #30 tab Ferrous Sulfate [Iron (65 MG Elemental)] 325 mg PO BID-W/MEALS #60 tab Furosemide [Lasix] 40 mg PO DAILY #5 tablet HYDROcodone/APAP 5-325MG [[place] 5-325] 1 - 2 each PO Q6HR PRN #120 tab PRN Reason: Moderate Pain Lisinopril [Zestril] 5 mg PO DAILY@1200 #30 tab Metoprolol Tartrate [Lopressor] 100 mg PO BID #60 tab Pantoprazole [Protonix] 40 mg PO AC-BRKFST #30 tab Potassium Chloride ER [K-Dur 20] 20 meq PO DAILY #5 tab Discharge Medication List Cholecalciferol [Vitamin D3] 2,000 unit PO DAILY 11/28/15 [History] Multivitamins, Thera [Multivitamin (formulary)] 1 tab PO DAILY 11/28/15 [History ] Fluticasone Nasal [place] [Flonase Nasal [place]] 2 spr EA NOSTRIL HS PRN 01/08/16 [ History] Clopidogrel Bisulfate [Plavix] 75 mg PO DAILY 07/14/16 [History] Loratadine [Claritin] 10 mg PO HS 07/14/16 [History] metFORMIN HCL [Metformin HCl ER] 1,000 mg PO BID 08/28/16 [History] Aspirin 325 mg PO ONCE 09/03/16 [History] Atorvastatin [Lipitor] 40 mg PO HS #30 tab 09/09/16 [Rx] Ferrous Sulfate [Iron (65 MG Elemental)] 325 mg PO BID-W/MEALS #60 tab 09/09/16 [Rx] Furosemide [Lasix] 40 mg PO DAILY #5 tablet 09/09/16 [Rx] HYDROcodone/APAP 5-325MG [[place] 5-325] 1 - 2 each PO Q6HR PRN #120 tab 09/09/16 [Rx] Lisinopril [Zestril] 5 mg PO DAILY@1200 #30 tab 09/09/16 [Rx] Metoprolol Tartrate [Lopressor] 100 mg PO BID #60 tab 09/09/16 [Rx] Pantoprazole [Protonix] 40 mg PO AC-BRKFST #30 tab 09/09/16 [Rx] Potassium Chloride ER [K-Dur 20] 20 meq PO DAILY #5 tab 09/09/16 [Rx] Sennosides-Docusate Sodium [Senokot-S] 2 each PO HS tab 09/09/16 [Rx] Follow up Appointment(s)/Referral(s): Irene Lane NPC [Nurse Practitioner] - 09/15/16 1:00 pm [facility], [NON-STAFF] - Silas Tomlin MD [STAFF PHYSICIAN] - 09/25/16 10:30 am Allison Tijerina MD [STAFF PHYSICIAN] - 09/22/16 3:15 pm Stephen Schaffer DO [Doctor of Osteopathic Medicine] - 09/30/16 10:00 am Justo Mccarty DO [Doctor of Osteopathic Medicine] - 09/22/16 10:40 am Ambulatory/Diagnostic Orders: Complete Blood Count w/diff [LAB.AMB] Time Frame: 3 Days, Location: Determined By Patient Comprehensive Metabolic Panel [LAB.AMB] Time Frame: 3 Days, Location: Determined By Patient Patient Instructions/Handouts: Coronary Artery Bypass Graft (DC) Activity/Diet/Wound Care/Special Instructions: DISCHARGE INSTRUCTIONS: 1. No driving for 4 weeks, or until physician gives their ok. 2. The patient should sleep in their own bed, no medical bed needed. 3. Stairs are not an issue. If the bedroom is upstairs, it is advised that the patient go up at night and down in the morning for the first week. Go slowly, using handrail and take 1 step at a time. 4. ADAIR hose are to be worn for 30 days or until physician discontinues. 5. Heart hugger is to be worn 100% of the time until physician discontinues.( except when showering) 6. No lifting, pushing, or pulling more than 10 pounds for 12 weeks. The physician will advise of any restriction changes. 7. The patient is expected to continue the prescribed walking program. 8. Continue pain control per as needed orders. 9. Continue with incentive spirometry and splinting/heart hugger until otherwise directed by the physician. 10. Must shower daily using liquid antibacterial soap and a separate white washcloth for each individual incision. 11. Routine sternal incision care.No lotions, powders, ointments on incisions. HOME HEALTH SERVICES TO PROVIDE: RN SKILLED HOME CARE SERVICES FOR POST-OP SURGICAL PATIENTS WITH THE FOLLOWING: Coronary Artery Bypass Surgery (CABG), Mitral Valve Replacement/ Repair ( MVR), Aortic Valve Replacement/Repair (AVR) RN TO CONTINUE EDUCATION FROM ``ROAD TO A HEALTH HEART PATIENT EDUCATION MANUAL (GIVEN TO PATIENT IN THE HOSPITAL) MEDICATION RECONCILIATION WITH EDUCATION NEEDED ON FIRST HOME VISIT EMPHASIZE IMPORTANCE OF WEARING HEART HUGGER ENCOURAGE USE OF INCENTIVE SPIROMETER 10 X EVERY HOUR WHILE AWAKE ENCOURAGE UTILIZATION OF LOWER EXTREMITY COMPRESSION STOCKINGS/ADAIR HOSE and ELEVATE LEGS ABOVE LEVEL OF HEART WHILE AT REST. ENCOURAGE AMBULATION 3-5x/day INCREASING TOLERATES, WHILE AVOID EXTREMES IN TEMPERATURE FREQUENCY: RN TO OPEN THE PATIENT WITHIN 24 HOURS OF DISCHARGE FROM THE HOSPITAL WITH TELEHEALTH INSTALLED AT [facility] [place], RN TO VISIT 2-3 X A WEEK FOR 4 WEEKS ESTABLISHED BY PATIENT NEEDS. LABORATORY: CBC, CMP TO BE DRAWN ON THE THIRD DAY HOME, Wednesday09/14/2016 (RAN STAT) FAX RESULTS TO [phone]. TELEHEALTH PARAMETERS: WEIGHT: NOTIFY MD OF WEIGHT GAIN OF 2 LBS IN 24 HOURS OR 5 LBS IN ONE WEEK HR: NOTIFY MD OF HR <55 BPM OR HR>100 BPM BP: NOTIFY MD IF BP <90/55 OR BP>140/100 O2 SAT: NOTIFY MD IF PO2<93% ON ROOM AIR SEND TELEHEALTH REPORT TO PUPPET MASTER AND CARDIOVASCULAR SURGEON THE FIRST WEEK OF CARE AND THEN BI-WEEKLY. PLEASE ADDITIONALLY COMMUNICATE ANY ABNORMALS AND NEW FINDINGS TO THE SURGEONS OFFICE. Discharge Disposition: HOME WITH HOME HEALTH SERVICES
== END 2016-09-09 12:56 | disposition home health service (06) | DRG 236 ==
LOC: 2ORMAIN 05:42 → 6ICU 14:44 → 6SEL 09-06 15:38
PROVIDERS: ADMIT Surgery; ATTEND Surgery
PROC: 021209W Bypass Coronary Artery, Three Arteries from Aorta with Autologous Venous Tissue, Open Approach (ICD-10-PCS; 2016-09-03)
PROC: 06BQ4ZZ Excision of Left Saphenous Vein, Percutaneous Endoscopic Approach (ICD-10-PCS; 2016-09-03)
PROC: B246ZZ4 Ultrasonography of Right and Left Heart, Transesophageal (ICD-10-PCS; 2016-09-03)
PROC: 02100Z9 Bypass Coronary Artery, One Artery from Left Internal Mammary, Open Approach (ICD-10-PCS; principal; 2016-09-03 08:00)
DX: I25.10 Atherosclerotic heart disease of native coronary artery without angina pectoris (principal); D69.6 Thrombocytopenia, unspecified; I50.32 Chronic diastolic (congestive) heart failure; J93.82 Other air leak; I11.0 Hypertensive heart disease with heart failure; E11.65 Type 2 diabetes mellitus with hyperglycemia; J93.83 Other pneumothorax; D62 Acute posthemorrhagic anemia; G47.30 Sleep apnea, unspecified; I25.2 Old myocardial infarction; I25.84 Coronary atherosclerosis due to calcified coronary lesion; E78.5 Hyperlipidemia, unspecified; K21.9 Gastro-esophageal reflux disease without esophagitis; Z85.72 Personal history of non-Hodgkin lymphomas; Z95.5 Presence of coronary angioplasty implant and graft; Z86.718 Personal history of other venous thrombosis and embolism; Z82.49 Family history of ischemic heart disease and other diseases of the circulatory system; Z87.19 Personal history of other diseases of the digestive system; Z79.82 Long term (current) use of aspirin; Z79.02 Long term (current) use of antithrombotics/antiplatelets; Z79.84 Long term (current) use of oral hypoglycemic drugs; Z79.899 Other long term (current) drug therapy
CPT/HCPCS: 71010; 71020; 80048; 80053; 82330; 82805; 83036; 83735; 84100; 85025; 85384; 85520; 85610; 85730; 86850; 86891; 86900; 86901; 86920; 94002; 94003; 94640; 94760

== ENCOUNTER → 2016-09-23 | Outpatient (CLI) | payer MEDICARE ==
--- NOTE | 2016-09-23 14:36 | XR ---
EXAMINATION TYPE: XR chest 2V DATE OF EXAM: 09/23/2016 COMPARISON: Chest x-ray September 09, 2016 HISTORY: Post open cardiac surgery with pleural effusion TECHNIQUE: Frontal and lateral views of the chest are obtained. FINDINGS: There is persistent small left pleural effusion improved from prior. There is associated l eft basilar atelectasis and/or infiltrate. There is interval resolution of small to tiny right pleura l effusion. Post CABG changes with mediastinal clips and sternal wires is present. The cardiac silho uette size is within normal limits with atherosclerotic thoracic aorta. The osseous structures are intact. IMPRESSION: Resolved right-sided effusion. Improved but persistent small left effusion with associate d left basilar atelectasis and/or infiltrate.
== END | disposition home or self-care (01) ==
LOC: RADXRMAIN 14:08
PROVIDERS: ATTEND Internal Medicine Cardiovascular Disease
DX: J98.11 Atelectasis (principal); J90 Pleural effusion, not elsewhere classified; R91.8 Other nonspecific abnormal finding of lung field
CPT/HCPCS: 71020

== ENCOUNTER → 2016-11-12 | Outpatient (CLI) | payer MEDICARE ==
--- NOTE | 2016-11-12 12:32 | US ---
EXAMINATION TYPE: US extremity nonvasc mass LT DATE OF EXAM: 11/12/2016 COMPARISON: NONE CLINICAL HISTORY: Left Leg mass R22.42. pt states he had open heart in August 2016 and vn harvested from left leg; now at the left medial mid calf there is an obvious palpable structure, occ tender. Scanned over the patient's area of concern. There is a 5.7 x 2.1 x 2.1cm complex fluid collection. IMPRESSION: Complex fluid collection is noted which may reflect seroma. Infected collection is diffi cult to exclude.
== END | disposition home or self-care (01) ==
LOC: RADUSWWP 12:07
PROVIDERS: ATTEND Family Medicine
DX: R22.42 Localized swelling, mass and lump, left lower limb (principal)

== ENCOUNTER → 2016-12-04 | Outpatient (CLI) | payer MEDICARE ==
[2016-12-08 11:08] LABS: LDL Size 20.3 nm (>20.5); LDL Size 2 20.3 nm (>=20.8)
== END | disposition home or self-care (01) ==
LOC: LABWHC1 08:55
PROVIDERS: ATTEND Internal Medicine Cardiovascular Disease
DX: I25.10 Atherosclerotic heart disease of native coronary artery without angina pectoris (principal)
CPT/HCPCS: 36415; 83704

== ENCOUNTER → 2016-12-31 | Outpatient (CLI) | payer MEDICARE ==
--- NOTE | 2016-12-31 11:34 | FL ---
EXAMINATION TYPE: FL barium swallow w video DATE OF EXAM: 12/31/2016 MODIFIED SWALLOW / DEGLUTITION STUDY CLINICAL HISTORY: Dysphagia. Feels food getting stuck since open cardiac surgery in August. TECHNIQUE: Deglutition study is performed utilizing thin liquid barium, honey and nectar thick liqui d barium, barium thick applesauce, and barium coated cracker. A total of 1.4 minutes of fluoroscopic time was utilized during procedure. Approximately 12 cine video clips were saved but not sent to PACS station. COMPARISON: None. FINDINGS: The oral and pharyngeal phases show satisfactory initiation with slight diminish epiglottis inversion noted. Satisfactory mastication is seen with solid modalities tested. There is no evidenc e of penetration or aspiration with any modality tested. Fairly moderate pharyngeal residue was appre ciated at level of the vallecula. Mild pharyngeal residual is seen at level of the piriform sinus. In cidental note is made of straightening of cervical spine with moderate disc space narrowing and mild spurring C4-C5 and C5-C6 levels. There is mild disc space narrowing in lower cervical levels noted. IMPRESSION: No penetration or aspiration identified. Please refer to speech therapist notes for furt her details if necessary.
== END ==
LOC: RADFLMAIN 10:56
DX: R13.12 Dysphagia, oropharyngeal phase (principal)
CPT/HCPCS: 74230

== ENCOUNTER → 2017-03-22 | Outpatient (CLI) | payer MEDICARE ==
--- NOTE | 2017-03-22 09:11 | CT ---
EXAMINATION TYPE: CT sinus wo con DATE OF EXAM: 03/22/2017 COMPARISON: NONE HISTORY: Chronic sinusitis CT DLP: 639 mGycm CONTRAST: 0 mL of Omnipaque 350 The paranasal sinuses are examined in the axial plane at 2 mm thick sections. Reconstructed images i n the coronal plane were obtained. Denture plate is present. The maxillary sinuses are clear. The ethmoid air cells are clear. The left sphenoid sinus contains mucosal thickening. No air-fluid levels are evident. The frontal sinuses are clear. Left frontal si nus is aplastic. The septum is evaluated. There is septal deviation. The right ostiomeatal unit is obstructed through the hiatus semilunaris. The left ostiomeatal unit is patent. There may be a small calcified meningioma in the right frontal region. IMPRESSIONS: 1. Obstructed right hiatus semilunaris. 2. Mucosal thickening through the left sphenoid sinus. Correlate for chronic sinusitis.
== END | disposition home or self-care (01) ==
LOC: RADCTMAIN 08:28
PROVIDERS: ATTEND Otolaryngology
DX: J34.89 Other specified disorders of nose and nasal sinuses (principal)
CPT/HCPCS: 70486

== ENCOUNTER → 2017-08-30 | Outpatient (CLI) | payer MEDICARE ==
--- NOTE | 2017-08-30 13:55 | CT ---
EXAMINATION TYPE: CT ChestAbdPelvis w con DATE OF EXAM: 08/30/2017 COMPARISON: 08/27/2016 and 07/22/2015 HISTORY: Lymphoma CT DLP: 1080.40 mGycm. Automated Exposure Control for Dose Reduction was Utilized. CONTRAST: CT scan of the thorax, abdomen and pelvis is performed with IV Contrast, patient injected with 100 ml mL of Isovue 300. Oral contrast was utilized for protocol. FINDINGS: LUNGS: Biapical slightly nodular pleural parenchymal thickening is again seen. Subpleural nodules wit hin the lung apices on series 5 image 13 are unchanged from the prior. 2 mm nodule within the right u pper lobe on series 5 image 21 is also unchanged from the prior. 3 mm right lower lobe pulmonary nodu le on series 5 image 33 is stable from the prior. No new focal consolidation or pulmonary mass is see n. No pneumothorax. MEDIASTINUM: There are no greater than 1 cm hilar or mediastinal lymph nodes. Post CABG changes are s een of the chest with severe coronary artery calcifications and stent grafts. Trace pericardial effus ion is noted. OTHER: No additional significant abnormality is seen. LIVER/PANCREAS/GALLBLADDER: There is a similar degree of moderate, predominantly left-sided intrahepa tic and extrahepatic biliary ductal dilatation in comparison to the prior with biliary stent remainin g in place extending into the duodenum. Abnormally enhancing pancreatic head mass currently measures 4.3 x 3.0 cm, without progression from the prior and size. This abuts but does not encase the superio r mesenteric artery or vein but does surround the biliary stent. The bladder is unremarkable. SPLEEN: Spleen is nonenlarged measuring 11.0 cm in craniocaudal dimension but contains multiple benig n splenic granulomas. ADRENALS: No significant abnormality is seen. KIDNEYS: Left upper poler 2.1 cm renal cyst is seen in addition to a 1.4 cm left upper pole renal cys t and a 4.1 cm right lower pole renal cyst. No hydronephrosis. BOWEL: Descending colon and limited due to nondistention with long segment haustral thickening and mi nimal terminal ileal thickening. No small or large bowel dilatation. LYMPH NODES: The previously seen 1.6 cm short axis mesenteric lymph node now measuresr 7 mm in short axis on series 4 image 84 mesenteric congestion is seen slightly limiting evaluation for adenopathy. No new enlarged mesenteric lymph nodes are noted. Peripancreatic edema is seen without peripancreatic lymph nodes. OSSEOUS STRUCTURES: There is a dextroscoliotic curvature of the lumbar spine. Moderate multilevel deg enerative changes are present. Median sternotomy wires are seen. OTHER: Moderate bilateral symmetric retroareolar gynecomastia is incidentally seen. Moderate calcific atheromatous changes are seen of the abdominal aorta and its branches. Small volume ascites collects within the pelvis dependently and trace amount tracks along the lateral conal fascia. IMPRESSION: 1. Stable size of the pancreatic head mass surrounding the biliary stent in comparison to the prior o 2016 and unchanged degree of moderate intrahepatic/extrahepatic biliary ductal dilatation. There is no pancreatic ductal dilatation, atypical for adenocarcinoma of the pancreas. Given the patient's kn own history of lymphoma although unlikely lymphomatous involvement is a consideration. 2. Decrease in size of the previously seen mesenteric adenopathy, no longer meeting size criteria for enlargement. No new adenopathy Haustral thickening of the ascending colon. Colonoscopy is advised if not recently performed. 3. Small volume dependent pelvic ascites. 4. Multiple subcentimeter (sub-3 mm) pulmonary nodules for which annual surveillance is recommended.
== END | disposition home or self-care (01) ==
LOC: RADCTMAIN 10:41
PROVIDERS: ATTEND Internal Medicine Hematology & Oncology
DX: C82.98 Follicular lymphoma, unspecified, lymph nodes of multiple sites (principal); K86.89 Other specified diseases of pancreas; K63.89 Other specified diseases of intestine; R18.8 Other ascites; R91.8 Other nonspecific abnormal finding of lung field
CPT/HCPCS: 82565; 84520; 71260; 74177; 36415; Q9967

== ENCOUNTER → 2017-10-20 | Outpatient (CLI) | payer MEDICARE ==
--- NOTE | 2017-10-20 12:00 | XR ---
EXAMINATION TYPE: XR chest 2V DATE OF EXAM: 10/20/2017 COMPARISON: Chest x-ray September 23, 2016. CT chest abdomen and pelvis August 30, 2017 HISTORY: Coronary artery disease per order. TECHNIQUE: Frontal and lateral views of the chest are obtained. FINDINGS: Overlying sternal wires are redemonstrated. There is no focal air space opacity, pleural ef fusion, or pneumothorax seen. The cardiac silhouette size remains within normal limits with atherosc lerotic change in thoracic aorta. The osseous structures are intact. IMPRESSION: No acute cardiopulmonary process. No significant change from prior studies.
[2017-10-20 12:36] LABS: Albumin 2.9 g/dL (3.5-5.0); Calcium 8.2 mg/dL (8.4-10.2); Potassium 4.1 mmol/L (3.5-5.1); Total Bilirubin 0.4 mg/dL (0.2-1.3); Total Protein 4.7 g/dL (6.3-8.2)
[2017-10-20 12:42] LABS: T4, Free (Free Thyroxine) 0.83 ng/dL (0.78-2.19)
== END | disposition home or self-care (01) ==
LOC: LABWHC1 11:25
PROVIDERS: ATTEND Internal Medicine Cardiovascular Disease
DX: I25.10 Atherosclerotic heart disease of native coronary artery without angina pectoris (principal)
CPT/HCPCS: 36415; 71046; 80053; 83880; 84439; 84443

== ENCOUNTER → 2018-07-04 | Outpatient (CLI) | payer MEDICARE | END | disposition home or self-care (01) | LOC: LABWHC1 09:31 | PROVIDERS: ATTEND Internal Medicine Cardiovascular Disease | DX: I25.10 Atherosclerotic heart disease of native coronary artery without angina pectoris (principal) | CPT/HCPCS: 36415; 83704 ==

== ENCOUNTER → 2018-08-29 | Outpatient (CLI) | payer MEDICARE ==
--- NOTE | 2018-08-29 10:10 | CT ---
EXAMINATION TYPE: CT ChestAbdPelvis w con DATE OF EXAM: 08/29/2018 COMPARISON: CT chest abdomen and pelvis August 30, 2017 and older CTs HISTORY: Follow up to lymphoma (pancreas) CT DLP: 1176.8 mGycm. Automated Exposure Control for Dose Reduction was Utilized. CONTRAST: CT scan of the thorax, abdomen and pelvis is performed with IV Contrast, patient injected with 100 mL of Isovue 300. FINDINGS: LUNGS: Mild biapical pleural/parenchymal scarring posteriorly is redemonstrated. Stable 2 mm superior right upper lobe nodule axial image 19 unchanged from 2015. Stable 3 mm right lower lobe nodule axia l image 30 unchanged from 2015. No new suspicious greater than 4 mm nodules are present. No pleural e ffusion or pneumothorax is identified. Mild linear scarring medial anterior left midlung axial image 26 remains present. MEDIASTINUM: There are no greater than 1 cm hilar or mediastinal lymph nodes. No cardiomegaly or pe ricardial effusion is seen. Severe [place] coronary artery calcification is redemonstrated but post-C ABG changes with mediastinal clips and sternal wires is also redemonstrated. Other: Prominent bilateral gynecomastia is again seen. LIVER/GB: There is stable fairly moderate central intrahepatic and extra hepatic biliary dilatation. Stable internal biliary drainage catheter or stent is noted. Gallbladder has distended margin similar to prior without new surrounding inflammatory change PANCREAS: Pancreas remains normal in size without ductal dilatation. Pancreatic head mass is fairly i sodense to surrounding tissue making difficult to accurately measure on current study SPLEEN: Scattered calcifications throughout the spleen are redemonstrated. ADRENALS: No significant abnormality is seen. KIDNEYS: Symmetric cortical medullary uptake and excretion in both kidneys without hydronephrosis is present. There are scattered simple-appearing thin-walled cysts bilaterally throughout both kidneys r edemonstrated. BOWEL: Oral contrast reaches level of rectum. There is no suspicious small or large bowel dilatation. Mild/moderate wall thickening involves terminal ileum as well as the right colon with mild wall thic kening extending to the proximal transverse colon. Moderate wall thickening is seen in the left colon extending into the sigmoid colon and rectum. GENITAL ORGANS: Prostate gland is upper limits of normal in size. Scattered pelvic phleboliths are pr esent. LYMPH NODES: Ill-defined soft tissue encasing SMA with loss of surrounding fat plane image 63 is rede monstrated this extends to posterior margin of the pancreas. Prior visualized abnormal left sided mes enteric lymph node is not clearly seen on current study. No new adenopathy is present. OSSEOUS STRUCTURES: There is persistent dextroconvex scoliosis centered in the mid lumbar spine. Ther e is moderate to severe multilevel spurring in the thoracolumbar spine. There is facet arthropathy mi d to lower lumbar levels OTHER: Moderate calcified plaque of aorta extends into iliac branch vessels. Small amount of ascites in the pelvis axial image 112 is slightly improved from prior with less anterior extension. IMPRESSION: Poor visualization of the pancreatic head mass. Stable abnormal retroperitoneal mass or s oft tissue likely reflecting known lymphoma posterior to the pancreas encasing SMA. No suspicious ne w masses or adenopathy. Probable persistent multifocal enterocolitis, correlate clinically.
== END | disposition home or self-care (01) ==
LOC: RADCTMAIN 07:54
PROVIDERS: ATTEND Internal Medicine Hematology & Oncology
DX: C82.98 Follicular lymphoma, unspecified, lymph nodes of multiple sites (principal); K86.89 Other specified diseases of pancreas
CPT/HCPCS: 82565; 84520; 71260; 74177; 36415; Q9967

== ENCOUNTER → 2019-09-05 | Outpatient (CLI) | payer MEDICARE ==
--- NOTE | 2019-09-05 17:31 | CT ---
EXAMINATION TYPE: CT ChestAbdPelvis w con DATE OF EXAM: 09/05/2019 COMPARISON: 08/29/2018 HISTORY: follow up follicular lymphoma CT DLP: 739.2 mGycm Automated exposure control for dose reduction was used. CONTRAST: CT scan of the chest, abdomen and pelvis is performed with Oral Contrast and with IV Contrast, patien t injected with 80 mL of Isovue 300. FINDINGS: LUNGS: Mild biapical pleural thickening. Subpleural apical nodule measuring less than a centimeter st able Nodules: Subpleural nodule posteriorly image 13 stable measuring 2 to 3 mm Right upper lobe 2 mm nodule stable. Right lower lobe 3 mm nodule stable. Left upper lobe posterior subpleural 3 mm nodule stable. No new suspicious nodules. No consolidation or pleural effusion. No pneumothorax. Underlying COPD suspected. Subsegmental atelec tasis or scarring at both lung bases. No overt failure. MEDIASTINUM: There are no greater than 1 cm hilar or mediastinal lymph nodes. Atherosclerotic change coronary arteries. Findings suggest previous CABG surgery. OTHER: Anechoic mass. Incidentally noted. LIVER/GB: There is stable fairly moderate central intrahepatic and extra hepatic biliary dilatation. Stable internal biliary drainage catheter or stent is noted. There is heterogeneous enhancement invol ving the right lobe of the liver which is retrospectively stable dating back to 08/30/2017 likely repre senting fatty infiltration liver with areas of focal fatty sparing. This is seen to a certain degree dating back to 2017. Suggestion of a biliary stent. PANCREAS: Pancreatic mass or fullness with surrounding abnormal attenuation with some encasement of t he celiac vasculature is similar in measurement and appearance to the prior exam.. SPLEEN: Splenic granuloma are noted. Spleen measures at the upper limits of normal in size at 13 cm. ADRENALS: No significant abnormality is seen. KIDNEYS: Bilateral simple renal cysts are seen with a nonobstructing lower pole 9 mm left renal calcu bri. BOWEL: There is thickening of the wall the sigmoid colon and left colon. There is increased soft tiss ue attenuation involving the right colon with pericolonic attenuation. Correlate for a colitis. Would recommend consideration for a colonoscopy or barium enema to assess the right colon.. LYMPH NODES: Ill-defined soft tissue encasing SMA with loss of surrounding fat plane is redemonstrate d and extends to posterior margin of the pancreas. Prior visualized abnormal left sided mesenteric ly mph node is not clearly seen on current study. No new adenopathy is present. . OSSEOUS STRUCTURES: Hypertrophic and degenerative change of the spine.. Scoliosis noted. OTHER: There is a trace amount of free fluid in the pelvis and the prostate is enlarged. Bladder is somewhat deco mpressed likely accounting for the wall mild thickening. IMPRESSION: 1. There remains increased soft tissue fullness in the region of the pancreatic head unchanged in siz e, measurement or morphology from the prior exam. Retroperitoneal soft tissue attenuation is stable. 2. Stable pulmonary nodules unchanged from multiple prior exams with no evidence of new pulmonary nod ule. Suspect these are most likely benign. 3. There are persistent thickening of the wall the right colon and to a lesser extent the sigmoid col on which could be evaluated with direct visualization. Correlate for colitis or other GI symptoms suc h as hematochezia. 4. Trace amount of free fluid in the pelvis.
== END | disposition home or self-care (01) ==
LOC: RADCTMAIN 13:01
PROVIDERS: ATTEND Internal Medicine Hematology & Oncology
DX: C82.98 Follicular lymphoma, unspecified, lymph nodes of multiple sites (principal); R91.1 Solitary pulmonary nodule; M79.89 Other specified soft tissue disorders; K63.89 Other specified diseases of intestine
CPT/HCPCS: 71260; 74177; Q9967

== ENCOUNTER → 2019-09-15 | Outpatient (CLI) | payer MEDICARE | END | disposition home or self-care (01) | LOC: LABWHC1 12:23 | PROVIDERS: ATTEND Internal Medicine Gastroenterology | DX: Z11.59 Encounter for screening for other viral diseases (principal) | CPT/HCPCS: 87635 ==

== ENCOUNTER 2019-09-20 06:49 | Day surgery (SDC) | payer MEDICARE ==
[2019-09-15 16:09] VITALS: BMI 23.7
[2019-09-20] MEDS ORDERED: LACTATED RINGERS 1,000 ML IV SCH (06:58)
[2019-09-20 07:04] VITALS: TEMP 97.8
[2019-09-20] MEDS ORDERED: LIDOCAINE 1% (10MG/ML) FOR IV START INTRADERMA ONE (07:07)
[2019-09-20] MEDS ORDERED: LACTATED RINGERS 1,000 ML IV ONE (07:07)
[2019-09-20 07:15] LABS: Glucose,Whole Blood 118 mg/dL (75-99)
[2019-09-20] MEDS ORDERED: LIDOCAINE 1% INJ 10MG/ML (20 ML MDV) ONE (07:30)
[2019-09-20] MEDS ORDERED: PROPOFOL 10 MG/ML 20 ML VIAL IV ONE (07:30)
--- NOTE | 2019-09-20 08:08 | P.PCN ---
Date of Procedure: 09/20/19 Procedure(s) Performed: Brief history: Patient is a pleasant 74-year-old white male scheduled for an elective upper endoscopy as well as colonoscopy as a part of evaluation of chronic diarrhea for the last 7 years duration. He has bowel movements anywhere from 6-7 a day which are loose to watery in consistency but no blood or mucus in the stool. His Metformin for 2 months with no help. He lost about 7 pounds. He is hence scheduled for an endoscopy as well as colonoscopy to evaluate further. Procedure performed: Esophagogastroduodenoscopy biopsy and CBD stent removal Colonoscopy with biopsy Preoperative diagnosis: Chronic diarrhea and weight loss of 7 years duration. Anesthesia: MAC Procedure: After informed consent was obtained from the patient was brought into the endoscopy unit and IV sedation was administered by anesthesia under continuous monitoring. Initially upper endoscopy was done. The Olympus GF 160 video endoscope was inserted inserted into the mouth and esophagus intubated without any difficulty and was gradually advanced into the stomach and duodenum and carefully examined. The bulb and second part of the duodenum appeared normal. Biopsies were done from the duodenum to rule out celiac disease. The second part of the duodenum there was a plastic CBD stent noted which was removed using the snare. The scope was then withdrawn into the stomach adequately insufflated with air and upon careful examination the antrum and body, cardia and fundus appeared normal. The scope was then withdrawn into the esophagus. The GE junction was located at 40 cm to the incisors. It appeared regular with no erythema erosions or ulcerations. Rest of the esophagus appeared normal. Patient tolerated the procedure well. At this time the patient continued to remain sedation. Initial digital rectal examination was normal. Olympus CF 160 video colonoscope was then inserted into the rectum and gradually advanced to the cecum without any difficulty. Careful examination was performed as the scope was gradually being withdrawn. The prep was excellent. The cecum, ascending colon, transverse colon, descending colon, sigmoid colon and rectum appeared normal. In the distal rectum just proximal to the dentate line revealed a couple of superficial erosions with mild proctitis seen and biopsies were done from this area. Also biopsies were done from ascending and descending colon without microscopic/collagenous colitis. Retroflexion was performed in the rectum and no lesions were noted. Patient tolerated the procedure well. Impression: 1. Upper endoscopy revealed normal-appearing esophagus stomach and duodenum. Status post duodenal biopsy. CBD stent removal 2. Colonoscopy revealed mild distal proctitis. Otherwise unremarkable Recommendations: Findings of this examination were discussed with the patient as well as his family. He was advised to follow with the biopsy results. He was advised to follow up in office in 2 weeks. .
[2019-09-20 08:24] VITALS: BP 109/75; PULSE 70; RESP 20
== END 2019-09-20 08:55 | disposition home or self-care (01) ==
LOC: ORWHC2ENDO 06:49
PROVIDERS: ATTEND Internal Medicine Gastroenterology
DX: K52.839 Microscopic colitis, unspecified (principal); K52.831 Collagenous colitis; G47.33 Obstructive sleep apnea (adult) (pediatric); I25.10 Atherosclerotic heart disease of native coronary artery without angina pectoris; I10 Essential (primary) hypertension; E78.5 Hyperlipidemia, unspecified; I25.2 Old myocardial infarction; K62.89 Other specified diseases of anus and rectum; Z97.2 Presence of dental prosthetic device (complete) (partial); Z79.4 Long term (current) use of insulin; Z79.899 Other long term (current) drug therapy
CPT/HCPCS: 88305; 88313; 45380; 43239; 43247; J2001; J2704; 44799